=== PATIENT | male | born 1955 | race Caucasian/White ===

== ENCOUNTER 2017-08-06 09:00 | Inpatient (IN) | payer BC, OTHER ==
[2017-08-06] VITALS (32 sets, daily range): BP systolic 63–158; BP diastolic 43–102; PULSE 38–164; RESP 18–24; TEMP 91–99.1; O2SAT 97–100
[~2017-08-06] VITALS: Ht 190.5 cm; Wt 98.5 kg
[~2017-08-06 09:00] MED LIST: ATROPINE SULFATE 1 MG/10 ML SYRINGE IV ONE; DOPamine 800 MG/500 ML INJ 500 ML IV ONE; EPINEPHrine HCL (1:10,000) 1 MG/10 ML SYRINGE IV ONE; LISI-363 PO; LORA-474 PO; MAGNESIUM SULFATE 40 MEQ/10 ML VIAL IV ONE; PRAV20 PO
[2017-08-06] MEDS ORDERED: DOPamine 800 MG/500 ML INJ 500 ML IV PRN (09:15)
[2017-08-06] MEDS ORDERED: TERBUTALINE INJ 1 MG/ML AMP SQ PRN (09:15)
[2017-08-06] MEDS ORDERED: HEPARIN SODIUM - IV 10,000 UNITS/10 ML VIAL IV PUSH STA (09:19)
[2017-08-06] MEDS ORDERED: SODIUM CHLOR 0.9% 1000 ML INJ 1,000 ML IV ONE (09:19)
[2017-08-06] MEDS ORDERED: ASPIRIN 81 MG CHEW TAB PO STA (09:19)
[2017-08-06] MEDS ORDERED: NITROGLYCERIN 0.4 MG SL 25 TABS/BTL SL STA (09:19)
[2017-08-06] MEDS ORDERED: SODIUM CHLORIDE 0.9% FLUSH 10 ML FLUSH IVF PRN (09:30)
[2017-08-06] MEDS ORDERED: NITROGLYCERIN-D5W 50 MG/250 ML 250 ML IV PRN ×2 (09:30→10:45)
[2017-08-06] MEDS ORDERED: ASPIRIN 300 MG SUPP RECTAL ONE (09:30)
--- NOTE | 2017-08-06 09:41 | PD ---
HPI Chief Complaint: STEMI Alert Time Seen by Provider: 09:19 Travel History International Travel<30 days: No Contact w/Intl Traveler<30days: No Traveled to known affect area: No History of Present Illness HPI White male presents via private vehicle. present states they [place] [facility] when he fainted. On arrival pulseless. Past medical history for hypertension hyperlipidemia and anxiety. Compliant with lisinopril pravastatin and Lorazepam. No previous cardiac history. History of gastric bypass. Nondiabetic. Non-smoker. denies any family history of cardiac disease. PFSH Past Medical History Autoimmune Disease: No Blood Disorders: No Cancer: No Cardiovascular Problems: Yes High Cholesterol: Yes Diabetes: No Diminished Hearing: No Endocrine: No Genitourinary: No Hepatitis: No Hiatal Hernia: No Immune Disorder: No Inguinal Hernia: Yes (MULTIPLE SURGERIES) Musculoskeletal: Yes Neurologic: No Psychiatric: No Reproductive: No Respiratory: No Thyroid Disease: No Past Surgical History Abdominal Surgery: Yes (GASTRIC BYPASS/ INGUINAL HERNIA) Other Surgery: Yes Social History Alcohol Use: Yes (HALF 1.75 BOTTLE LIQUOR, TODAY RUM 3 X WEEK) Tobacco Use: No Substance Use: No Allergies-Medications (Allergen,Severity, Reaction): Coded Allergies: morphine (Unverified Adverse Reaction, Severe, hallucinates, 08/06/17) Reported Meds & Prescriptions Reported Meds & Active Scripts Active Active Prescriptions or Reported Medications Unobtainable Review of Systems ROS Limitations: Unresponsive General / Constitutional: No: Fever Eyes: No: Visual changes HENT: No: Headaches Cardiovascular: Positive: Chest Pain or Discomfort Respiratory: No: Shortness of Breath Gastrointestinal: No: Abdominal Pain Genitourinary: No: Dysuria Musculoskeletal: No: Pain Skin: No Rash Neurologic: No: Weakness Psychiatric: No: Depression Endocrine: No: Polydipsia Hematologic/Lymphatic: No: Easy Bruising Physical Exam Narrative GENERAL: Well-nourished, well-developed patient. SKIN: Focused skin assessment warm/dry. HEAD: Normocephalic. EYES: Pupils fixed and nonreactive NECK: Supple, trachea midline. No JVD or lymphadenopathy. CARDIOVASCULAR: Tachycardic irregular rate of 156 RESPIRATORY: Intubated positive breath sounds GASTROINTESTINAL: Abdomen soft, nondistended. MUSCULOSKELETAL: No cyanosis, or edema. BACK: Nontender without obvious deformity. No CVA tenderness. 2 peripheral lines, right femoral central line, Rizvi in place, OG tube in place Data Data Last Documented VS Vital Signs Date Time Temp Pulse Resp B/P (MAP) Pulse Ox O2 Delivery O2 Flow Rate FiO2 08/06/17 10:49 Ventilator 08/06/17 09:34 100 100 Orders Orders Dopamine 800 Mg/500 Ml Inj (Dopamine 800 (08/06/17 09:15) Terbutaline Inj (Brethine Inj) (08/06/17 09:15) Chest, Single Ap (08/06/17 ) Troponin I (08/06/17 09:19) Ckmb (Isoenzyme) Profile (08/06/17 09:19) Complete Blood Count With Diff (08/06/17:19) Basic Metabolic Panel (Bmp) (08/06/17 09:19) Magnesium (Mg) (08/06/17 09:19) Calcium (08/06/17 09:19) Prothrombin Time / Inr (Pt) (08/06/17:19) Act Partial Throm Time (Ptt) (08/06/17 09:19) B-Type Natriuretic Peptide (08/06/17 09:19) Electrocardiogram (08/06/17 09:19) Oxygen Administration (08/06/17 09:19) Iv Access Insert/Monitor (08/06/17 09:19) Oximetry (08/06/17 09:19) Sodium Chlor 0.9% 1000 Ml Inj (Ns 1000 M (08/06/17 09:19) Sodium Chloride 0.9% Flush (Ns Flush) (08/06/17 09:30) Aspirin Chew (Aspirin Chew) (08/06/17 09:19) Nitroglycerin Sl (Nitrostat Sl) (08/06/17 09:19) Nitroglycerin-D5w 50 Mg/250 Ml (Nitrogly (08/06/17 09:30) Heparin Inj (Heparin Inj) (08/06/17 09:19) Aspirin Supp (Aspirin Supp) (08/06/17 09:30) Ct Brain W/O Iv Contrast(Rout) (08/06/17 ) ^ Infusion (08/06/17 ) Norepinephrine-Dextrose Drip (Levophed-D (08/06/17 09:45) Lactic Acid Sepsis Protocol (08/06/17 09:41) Arterial Blood Gas (Abg) (08/06/17 ) Sodium Bicarbonate 8.4% Inj (Sodium Bica (08/06/17 10:15) D5-1/2 Ns + Kcl 20 Meq Inj (D5-1/2 Ns + (08/06/17 10:30) CKMB (08/06/17 09:30) CKMB% (08/06/17 09:30) Norepinephrine-Dextrose Drip (Levophed-D (08/06/17 10:45) Nitroglycerin-D5w 50 Mg/250 Ml (Nitrogly (08/06/17 10:45) Urinary Catheter Insert/Apply (08/06/17 11:05) Cindy-Gastric Tube Insert/Mon (08/06/17 11:05) Admit Order (Ed Use Only) (08/06/17 ) Director Recreation / Telemetry [id number] (08/06/17 11:07) Vital Signs (Adult) Q4H (08/06/17 11:07) Notify Dr: Other (08/06/17 11:07) Consult Cardiology (08/06/17 ) Labs Laboratory Tests Test 08/06/17 09:30 08/06/17 09:55 08/06/17 10:40 White Blood Count 8.3 TH/MM3 Red Blood Count 4.24 MIL/MM3 Hemoglobin 11.1 GM/DL Hematocrit 34.0 % Mean Corpuscular Volume 80.3 FL Mean Corpuscular Hemoglobin 26.1 PG Mean Corpuscular Hemoglobin Concent 32.5 % Red Cell Distribution Width 19.4 % Platelet Count 149 TH/MM3 Mean Platelet Volume 9.3 FL Neutrophils (%) (Auto) 60.8 % Lymphocytes (%) (Auto) 31.8 % Monocytes (%) (Auto) 4.8 % Eosinophils (%) (Auto) 1.5 % Basophils (%) (Auto) 1.1 % Neutrophils # (Auto) 5.1 TH/MM3 Lymphocytes # (Auto) 2.6 TH/MM3 Monocytes # (Auto) 0.4 TH/MM3 Eosinophils # (Auto) 0.1 TH/MM3 Basophils # (Auto) 0.1 TH/MM3 CBC Comment DIFF FINAL Differential Comment Prothrombin Time 10.7 SEC Prothromb Time International Ratio 1.1 RATIO Activated Partial Thromboplast Time 22.4 SEC Blood Urea Nitrogen 9 MG/DL Creatinine 0.96 MG/DL Random Glucose 137 MG/DL Calcium Level 7.7 MG/DL Magnesium Level 2.1 MG/DL Sodium Level 142 MEQ/L Potassium Level 3.2 MEQ/L Chloride Level 105 MEQ/L Carbon Dioxide Level 21.3 MEQ/L Anion Gap 16 MEQ/L Estimat Glomerular Filtration Rate 79 ML/MIN Total Creatine Kinase 114 U/L Creatine Kinase MB 1.0 NG/ML Troponin I 0.04 NG/ML B-Type Natriuretic Peptide 124 PG/ML Blood Gas Puncture Site LT FEMORAL Blood Gas Patient Temperature 98.6 Blood Gas HCO3 15 mmol/L Blood Gas Base Excess -10.6 mmol/L Blood Gas Oxygen Saturation 97 % Arterial Blood pH 7.26 Arterial Blood Partial Pressure CO2 35 mmHG Arterial Blood Partial Pressure O2 512 mmHG Arterial Blood Oxygen Content 14.0 Vol % Arterial Blood Carboxyhemoglobin 1.1 % Arterial Blood Methemoglobin 1.6 % Blood Gas Hemoglobin 9.3 G/DL Oxygen Delivery Device VENTILATOR Blood Gas Ventilator Setting PRVC/AC Blood Gas Inspired Oxygen 100 % Lactic Acid Level 8.6 mmol/L [facility] Medical Decision Making Medical Screen Exam Complete: Yes Emergency Medical Condition: Yes Differential Diagnosis cardiopulmonary arrest, RI, dissection, ICH, gi bleed Narrative Course On arrival pulseless and unresponsive, ACLS initiated, airway secured lines obtained, patient defibrillated 2, epi 3, atropine 1, magnesium 2 mg, heparin drip started with aspirin per rectum. Levophed initiated for hypotension. EKG atrial fibrillation with RVR rate of 156. Chest x-ray clear with well-placed ET tube. ABG reveals pH 7.2 PCO2 34 and PO2 of 512. Bicarb provided. OG tube placed. Blood pressure significantly improved, levophed titrated down. Cardizem drip initiated for rate control with new onset A. fib. Reevaluation, pupils are now reactive to light, patient does appear to be posturing his lower extremities only. Small amount of Ativan provided. Patient becoming more agitated, propofol drip started. Ambulance arrived patient transported to the [facility]. Physician Communication Physician Communication Spoke with Dr. Boateng who evaluated EKG, non-STEMI. Spoke to Dr Horta who is in agreement will admit, transfer to the [facility] after CT the head is obtained Diagnosis Primary Impression: Cardiopulmonary arrest with successful resuscitation Scripts Unable to Obtain Active Prescriptions or Reported Meds Shahram Miramontes MD Aug 06, 2017 09:41
--- NOTE | 2017-08-06 09:41 | RADRPT ---
EXAM DATE/TIME: 08/06/2017 09:22 [facility] COMPARISON: No previous studies available for comparison. INDICATIONS : cardiac alert, syncope MEDICAL HISTORY : None. SURGICAL HISTORY : None. ENCOUNTER: Initial ACUITY: 1 day PAIN SCORE: Non-responsive. LOCATION: Bilateral chest FINDINGS: An endotracheal tube has its tip 4 cm above the danny. The heart is normal. The pulmonary vasculatur e pattern is normal. The lungs are clear. CONCLUSION: Endotracheal tube in good position 4 cm above the danny. No focal infiltrate or pulmonary vascular c ongestion. Eduardo Black MD on August 06, 2017 at 9:37 Board Certified Radiologist. This report was verified electronically.
[2017-08-06] MEDS ORDERED: NOREPINEPHRINE-DEXTROSE DRIP 250 ML IV PRN ×2 (09:45→10:45)
[2017-08-06 09:50] LABS: AUTOMATED NEUTROPHIL # 5.1 TH/MM3 (1.8-7.7); BASOPHIL # 0.1 TH/MM3 (0-0.2); BASOPHIL % 1.1 % (0.0-2.0); EOSINOPHIL # 0.1 TH/MM3 (0-0.4); EOSINOPHIL % 1.5 % (0.0-4.0); HEMOGLOBIN 11.1 GM/DL (13.0-17.0); LYMPH % 31.8 % (9.0-44.0); LYMPHOCYTE # 2.6 TH/MM3 (1.0-4.8); MEAN CELL VOLUME 80.3 FL (80.0-100.0); MEAN CORPUSCULAR HEMOGLOBIN 26.1 PG (27.0-34.0); MEAN CORPUSCULAR HGB CONC 32.5 % (32.0-36.0); MEAN PLATELET VOLUME 9.3 FL (7.0-11.0); MONO % 4.8 % (0.0-8.0); MONOCYTE # 0.4 TH/MM3 (0-0.9); NEUT % 60.8 % (16.0-70.0); PLATELET COUNT 149 TH/MM3 (150-450); RED BLOOD COUNT 4.24 MIL/MM3 (4.50-5.90); RED CELL DISTRIBUTION WIDTH 19.4 % (11.6-17.2); WHITE BLOOD COUNT 8.3 TH/MM3 (4.0-11.0)
[2017-08-06 10:00] LABS: INTERNATIONAL NORMALIZED RATIO 1.1 RATIO; PROTHROMBIN TIME - PATIENT 10.7 SEC (9.8-11.6)
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
[2017-08-06 10:12] LABS: CHLORIDE 105 MEQ/L (98-107); SODIUM (NA) 142 MEQ/L (136-145)
[2017-08-06 10:15] LABS: CALCIUM 7.7 MG/DL (8.5-10.1)
[2017-08-06] MEDS ORDERED: SODIUM BICARBONATE 8.4% INJ 50 MEQ/50 ML SYR IV PUSH ONE (10:15)
[2017-08-06 10:16] LABS: BICARBONATE 21.3 MEQ/L (21.0-32.0); BLOOD UREA NITROGEN 9 MG/DL (7-18); GLUCOSE,RANDOM 137 MG/DL (74-106); MAGNESIUM 2.1 MG/DL (1.5-2.5)
[2017-08-06 10:19] LABS: CREATININE 0.96 MG/DL (0.60-1.30); GLOMERULAR FILTRATION RATE 79 ML/MIN (>89)
[2017-08-06 10:24] LABS: TROPONIN I 0.04 NG/ML (0.02-0.05)
[2017-08-06] MEDS ORDERED: D5-1/2 NS + KCL 20 MEQ INJ 1,000 ML IV SCH ×2 (10:30→14:15)
[2017-08-06] MEDS ORDERED: DILTIAZEM HCL 25 MG/5 ML VIAL IV ONE ×2 (11:30→12:00)
[2017-08-06 11:46] LABS: LACTIC ACID SEPSIS PROTOCOL 8.6 mmol/L (0.4-2.0)
[2017-08-06] MEDS ORDERED: LORazepam 2 MG/ML VIAL IM ONE (12:00)
[2017-08-06] MEDS ORDERED: DILTIAZEM INJ 125 MG in SODIUM CHLORIDE 0.9% INJ 100 ML IV PRN ×2 (12:15→14:15)
[2017-08-06] MEDS ORDERED: LISI-515 PO (13:37)
[2017-08-06] MEDS ORDERED: TRAM50TA PO (13:37)
[2017-08-06] MEDS ORDERED: TAMS0.4C4 PO (13:37)
[2017-08-06] MEDS ORDERED: ATOR10TA15 PO (13:37)
[2017-08-06] MEDS ORDERED: METH750T PO (13:37)
[2017-08-06] MEDS ORDERED: CISATRACURIUM BESYLATE 20 MG/10 ML VIAL IV ONE (14:15)
[2017-08-06] MEDS: PROPOFOL 1000 MG/100 ML IV PRN ×2 (14:30→16:21)
--- NOTE | 2017-08-06 14:42 | RADRPT ---
EXAM DATE/TIME: 08/06/2017 14:10 [facility] COMPARISON: CT BRAIN W/O CONTRAST, March 28, 2013, 11:10. INDICATIONS : Altered mental status. RADIATION DOSE: 50.87 CTDIvol (mGy) MEDICAL HISTORY : Carcinoma, prostate. Hypertension. SURGICAL HISTORY : Gastric bypass. ENCOUNTER: Initial ACUITY: 1 day PAIN SCALE: Non-responsive LOCATION: Bilateral head TECHNIQUE: Multiple contiguous axial images were obtained of the head. Using automated exposure control and adj ustment of the mA and/or kV according to patient size, radiation dose was kept as low as reasonably a chievable to obtain optimal diagnostic quality images. DICOM format image data is available electro nically for review and comparison. FINDINGS: CEREBRUM: The ventricles are normal for age. No evidence of midline shift, mass lesion, hemorrhage or acute in farction. No extra-axial fluid collections are seen. POSTERIOR FOSSA: The cerebellum and brainstem are intact. The 4th ventricle is midline. The cerebellopontine angle i s unremarkable. EXTRACRANIAL: The visualized portion of the orbits is intact. There is minimal left maxillary sinus disease. SKULL: The calvaria is intact. No evidence of skull fracture. CONCLUSION: No acute intracranial disease. Moisés Olvera MD on August 06, 2017 at 14:38 Board Certified Radiologist. This report was verified electronically.
--- NOTE | 2017-08-06 16:30 | HHI.HP ---
[facility] Service Critical Care Medicine Primary Care Physician Gallito Lilly MD Admission Diagnosis Cardiopulmonary arrest Diagnosis: Chief Complaint: altered mental status Travel History International Travel<30 Days: No Contact w/Intl Traveler <30 Da: No Traveled to Known Affected Are: No History of Present Illness This is a 62-year-old male who presented by private vehicle for acute altered mental status. Per ER reports, he was riding with his through [place] when he passed out. She immediately turned and drove to the [place] emergency department where in the ER he was found to be in PEA arrest. The states that was approximately 3-5 minutes of driving before she arrived to the ER. After ACLS, ROSC was obtained. A poor neurologic exam and was emergently transferred to [facility]. I evaluated the patient upon arrival to the CVICU. He had pupils that were 6 mm, sluggishly reactive, deviated to the left. He was extensor posturing in the upper extremities and flexor posturing in the lowers. He had a head CT that was negative for acute intracranial hemorrhage. There was some report from the emergency department that at least one rhythm during ACLS was ventricular fibrillation, suggesting a possible ischemic component to this cardiac arrest. I had a discussion with Dr. Boateng with cardiology and we both agree the patient would be a good hypothermic candidate. No additional information is available from the patient due to his clinical condition. ROS unobtainable. Review of Systems ROS Limitations: Clinical Condition, Intubated, Altered Mental Status, Unresponsive Past Family Social History Allergies: Coded Allergies: morphine (Unverified Adverse Reaction, Severe, hallucinates, 08/06/17) Past Medical History Unobtainable from the patient due to his clinical condition. Per chart review: Hypertension Hypercholesterolemia Past Surgical History Unobtainable from the patient due to his clinical condition. Per chart review: Gastric bypass Inguinal hernia repair Reported Medications Unobtainable from the patient due to the clinical condition. Per chart review: Methocarbamol 750 Mg Tab 750 Mg PO QID Tramadol (Tramadol HCl) 50 Mg Tab 50 Mg PO QID PRN Lisinopril 20 Mg Tab 20 Mg PO DAILY Tamsulosin (Tamsulosin HCl) 0.4 Mg Cap 0.4 Mg PO BID Atorvastatin (Atorvastatin Calcium) 10 Mg Tab 10 Mg PO HS Active Ordered Medications See MAR Family History Unobtainable from the patient due to his clinical condition. Per chart review: No family history of coronary artery disease Social History Unobtainable from the patient due to his clinical condition. Per chart review: Non-smoker. Physical Exam Vital Signs Vital Signs Date Time Temp Pulse Resp B/P (MAP) Pulse Ox O2 Delivery O2 Flow Rate FiO2 08/06/17 15:22 99.1 137 24 120/79 (93) 99 08/06/17 15:22 137 08/06/17 14:51 40 08/06/17 14:44 137 08/06/17 14:36 99.1 137 24 111/72 (85) 98 08/06/17 14:32 137 08/06/17 12:35 08/06/17 12:30 130 18 134/84 (101) 100 Ventilator 100 08/06/17 12:10 Ventilator 2.00 100 08/06/17 12:10 130 18 158/102 (120) 100 100 08/06/17 11:55 137 18 138/100 (113) 97 Ventilator 100 08/06/17 11:35 140 18 121/86 (98) 100 Ventilator 100 08/06/17 11:20 150 Ventilator 08/06/17 11:20 150 18 144/88 (106) 100 Ventilator 2.00 100 08/06/17 11:00 149 18 119/62 (81) 100 Ventilator 100 08/06/17 10:49 Ventilator 08/06/17 10:49 Ventilator 08/06/17 10:49 Ventilator 08/06/17 10:45 152 18 85/69 (74) 100 Ventilator 2.00 100 08/06/17 10:30 156 18 99/60 (73) 100 Ventilator 2.00 100 08/06/17 10:30 Ventilator 08/06/17 10:25 98/67 (77) 08/06/17 10:20 164 18 76/66 (69) 100 Ventilator 2.00 100 08/06/17 10:10 150 18 63/43 (50) 100 Ventilator 2.00 100 08/06/17 10:05 148 18 89/72 (78) 99 Ventilator 2.00 100 08/06/17 09:45 154 18 80/62 (68) 100 Ventilator 2.00 100 08/06/17 09:40 161 18 67/53 (58) 100 Ventilator 2.00 100 08/06/17 09:35 160 18 78/64 (69) 100 Ventilator 2.00 100 08/06/17 09:34 100 100 08/06/17 09:25 148 94/64 (74) 100 Ventilator 2.00 100 08/06/17 09:20 143 110/78 (89) 98 Ventilator 08/06/17 09:15 156 18 Physical Exam GENERAL: Middle-aged male, lying in bed, unresponsive, comatose HEENT: Normocephalic. Atraumatic. Pupils are 6 mm, deviated to the left, sluggishly reactive. Mucous membranes are moist NECK: Trachea is midline. There is no JVD. CHEST: Equal chest rise. PRVC. 40% FiO2. CARDIOVASCULAR: Tachycardic rate, regular rhythm. Sinus tachycardia by telemetry. ABDOMEN: Soft, nontender, nondistended. No guarding. MUSCULOSKELETAL: Pulses 2+. No peripheral edema. Extremities are cool and poorly perfused NEUROLOGICAL: GCS 4/5 (E1 V1 M 2/3) RASS -5. Extensor postures in the upper extremities, flexor postures in the lower extremities. Upgoing Babinski. Positive cough. Positive gag. Positive corneals. Inappropriate doll's eyes. Pupils as above. Laboratory Laboratory Tests Test 08/06/17 09:30 08/06/17 09:55 08/06/17 10:40 White Blood Count 8.3 Red Blood Count 4.24 Hemoglobin 11.1 Hematocrit 34.0 Mean Corpuscular Volume 80.3 Mean Corpuscular Hemoglobin 26.1 Mean Corpuscular Hemoglobin Concent 32.5 Red Cell Distribution Width 19.4 Platelet Count 149 Mean Platelet Volume 9.3 Neutrophils (%) (Auto) 60.8 Lymphocytes (%) (Auto) 31.8 Monocytes (%) (Auto) 4.8 Eosinophils (%) (Auto) 1.5 Basophils (%) (Auto) 1.1 Neutrophils # (Auto) 5.1 Lymphocytes # (Auto) 2.6 Monocytes # (Auto) 0.4 Eosinophils # (Auto) 0.1 Basophils # (Auto) 0.1 CBC Comment DIFF FINAL Differential Comment Prothrombin Time 10.7 Prothromb Time International Ratio 1.1 Activated Partial Thromboplast Time 22.4 Blood Urea Nitrogen 9 Creatinine 0.96 Random Glucose 137 Calcium Level 7.7 Magnesium Level 2.1 Sodium Level 142 Potassium Level 3.2 Chloride Level 105 Carbon Dioxide Level 21.3 Anion Gap 16 Estimat Glomerular Filtration Rate 79 Total Creatine Kinase 114 Creatine Kinase MB 1.0 Troponin I 0.04 B-Type Natriuretic Peptide 124 Blood Gas Puncture Site LT FEMORAL Blood Gas Patient Temperature 98.6 Blood Gas HCO3 15 Blood Gas Base Excess -10.6 Blood Gas Oxygen Saturation 97 Arterial Blood pH 7.26 Arterial Blood Partial Pressure CO2 35 Arterial Blood Partial Pressure O2 512 Arterial Blood Oxygen Content 14.0 Arterial Blood Carboxyhemoglobin 1.1 Arterial Blood Methemoglobin 1.6 Blood Gas Hemoglobin 9.3 Oxygen Delivery Device VENTILATOR Blood Gas Ventilator Setting PRVC/AC Blood Gas Inspired Oxygen 100 Lactic Acid Level 8.6 Result Diagram: 08/06/1792908/06/17929 Caprini VTE Risk Assessment Caprini VTE Risk Assessment: Mod/High Risk (score >= 2) Caprini Risk Assessment Model Point Value = 1 Point Value = 2 Point Value = 3 Point Value = 5 Age 41-60 Minor surgery BMI > 25 kg/m2 Swollen legs Varicose veins or History of unexplained or recurrent spontaneous Oral contraceptives or hormone replacement Sepsis (< 1 month) Serious lung disease, including pneumonia (< 1 month) Abnormal pulmonary function Acute myocardial infarction Congestive heart failure (< 1 month) History of inflammatory bowel disease Medical patient at bed rest Age 61-74 Arthroscopic surgery Major open surgery (> 45 min) Laparoscopic surgery (> 45 min) Malignancy Confined to bed (> 72 hours) Immobilizing plaster cast Central venous access Age >= 75 History of VTE Family history of VTE Factor V Leiden Prothrombin [id number] Lupus anticoagulant Anticardiolipin antibodies Elevated serum homocysteine Heparin-induced thrombocytopenia Other congenital or acquired thrombophilia Stroke (< 1 month) Elective arthroplasty Hip, pelvis, or leg fracture Acute spinal cord injury (< 1 month) Prophylaxis Regimen Total Risk Factor Score Risk Level Prophylaxis Regimen 0-1 Low Early ambulation 2 Moderate Order ONE of the following: *Sequential Compression Device (SCD) *Heparin 5000 units SQ BID 3-4 Higher Order ONE of the following medications: *Heparin 5000 units SQ TID *Enoxaparin/Lovenox 40 mg SQ daily (WT < 150 kg, CrCl > 30 mL/min) *Enoxaparin/Lovenox 30 mg SQ daily (WT < 150 kg, CrCl > 10-29 mL/min) *Enoxaparin/Lovenox 30 mg SQ BID (WT < 150 kg, CrCl > 30 mL/min) AND/OR *Sequential Compression Device (SCD) 5 or more Highest Order ONE of the following medications: *Heparin 5000 units SQ TID (Preferred with Epidurals) *Enoxaparin/Lovenox 40 mg SQ daily (WT < 150 kg, CrCl > 30 mL/min) *Enoxaparin/Lovenox 30 mg SQ daily (WT < 150 kg, CrCl > 10-29 mL/min) *Enoxaparin/Lovenox 30 mg SQ BID (WT < 150 kg, CrCl > 30 mL/min) AND *Sequential Compression Device (SCD) Assessment and Plan Assessment and Plan Assessment: 62-year-old male with out of hospital cardiac arrest and at least one rhythm strip suggesting ventricular fibrillation or a coronary ischemia component to his arrest. Given age and lack of medical comorbidities he would be a good candidate for therapeutic hypothermia. Will proceed with protocol. Remains very critically ill. Appreciate cardiology input. Plan by systems: Neurologic: Hypoxic ischemic encephalopathy Initiate therapeutic hypothermia Frequent neuro checks Nuedexta prevent shivering Propofol for sedation Given deviated eyes, will load with keppra eeg Respiratory: Acute hypoxic hypercarbic respiratory failure Vent bundle Head of bed 30 Nebs Wean FiO2 for goal SPO2 greater than 92% No weaning of ventilator until neurologic exam improves Cardiovascular: Status post out of hospital cardiac arrest Ventricular fibrillation Serial troponins Cardiology consult: Dr. Boateng If troponins are elevated, will start heparin infusion for acute coronary syndrome Levophed for goal map greater than 65 Renal: Acute kidney injury Place Rizvi catheter -- Strict I/Os FEN/GI: N.p.o. Maintenance IV fluids ICU electrolyte protocol Heme/ID: Daily CBC No infectious etiology suspected this time Endocrine: Hyperglycemia of critical illness -- SSI, medium scale, every 6 Prophylaxis: GI Prophylaxis Pepcid IV DVT Prophylaxis -- SCDs We will either pursue subcu heparin or therapeutic heparin drip for ACS depending on serial troponins Lines: Right femoral triple lumen catheter 08/06 Left femoral code cool catheter 08/06 Left femoral arterial line 08/06 Rizvi Dispo: Admit to the CVICU. Remains critically ill This patient remains critically ill with one or more organ systems which are or may become a threat to life. I have spent in excess of 76 minutes discontinuously in the care and management of this patient. This time is exclusive of procedures, and includes, but is not limited to, evaluation of the patient, review of the medical record, discussions with family, consultants, nursing staff, or respiratory therapy, and documentation in the medical record. Luis Juarez MD Aug 06, 2017 16:30
--- NOTE | 2017-08-06 16:39 | PD.PROCEDR ---
Procedure Note Procedure Procedure: Arterial Line Placement Left femoral 18-gauge 16 cm arterial line Diagnosis: Cardia genic shock Indications: Need for beat to beat hemodynamic monitoring Consent: Emergent Description of the Procedure: The left groin was prepped and draped sterilely. 1% lidocaine was used for local anesthesia. The pulse was located and a needle was advanced into the artery. A 18 gauge, 16 cm catheter was advanced into the artery using a modified Seldinger technique. The catheter was sutured to the skin and a sterile dressing was applied. The catheter was connected to a pressure transducer and an arterial waveform was noted. There were no immediate complications noted. There was minimal EBL. I personally performed the procedure. Luis Juarez MD Aug 06, 2017 16:39
--- NOTE | 2017-08-06 16:41 | PD.PROCEDR ---
Procedure Note Procedure Central Line Procedure Note Left femoral cooling catheter Diagnosis: Out of hospital cardiac arrest Indications: Postresuscitation induced hypothermia Consent: Emergent Anesthesia: Propofol IV Description of the Procedure: The patient was placed in the supine position. The area was prepped and draped sterilely. A 19g needle was inserted under negative pressure aspiration and dark venous blood was obtained. A guidewire was inserted easily without resistance. A small incision was made using a #11 blade. Using a modified Seldinger technique, the dilator and cooling catheter were advanced over the guidewire without resistance. All ports were aspirated and flushed, and had brisk blood return. The line was secured at the skin using 2-0 silk interrupted sutures. a Biopatch and Transparent sterile dressing were applied. There were no immediate complications noted. There was minimal EBL. The patient tolerated the procedure well. Ultrasound guidance was not used for this procedure I personally performed the procedure. Note: A StatLock device was not used because it was incompatible with the hub of the cooling catheter. Luis Juarez MD Aug 06, 2017 16:41
[2017-08-06] MEDS ORDERED: CHLORHEXIDINE GLUCONATE 2 % 1 PACK (2 CLOTHS) TOP PRN (16:45)
[2017-08-06] MEDS ORDERED: POTASSIUM PHOSPHATE MONOBASIC 500 MG TAB PO PRN (16:45)
[2017-08-06] MEDS ORDERED: MAGNESIUM OXIDE 400 MG TAB PO PRN (16:45)
[2017-08-06] MEDS ORDERED: POTASSIUM CHLOR 20 MEQ PREMIX 100 ML IV PRN (16:45)
[2017-08-06] MEDS ORDERED: POTASSIUM CHLOR 40 MEQ PREMIX 100 ML IV PRN ×2 (16:45)
[2017-08-06] MEDS ORDERED: POTASSIUM CHLORIDE 25 MEQ EFFERVESCENT TAB PO PRN (16:45)
[2017-08-06] MEDS ORDERED: MISCELLANEOUS NURSING INFORMATION XX SCH (16:45)
[2017-08-06] MEDS ORDERED: POTASSIUM PHOSPHATE INJ 30 MMOL in SODIUM CHLOR 0.9% 250 ML INJ 250 ML IV PRN (16:45)
[2017-08-06] MEDS ORDERED: RESP: ALBUTEROL 2.5 MG/IPRATROPIUM 0.5 MG NEB (PRN) INH (16:45)
[2017-08-06] MEDS ORDERED: MAGNESIUM HYDROXIDE SUSP 30 ML CUP PO PRN (16:45)
[2017-08-06] MEDS ORDERED: SODIUM CHLORIDE 0.9% FLUSH 10 ML FLUSH IV FLUSH PRN (16:45)
[2017-08-06] MEDS ORDERED: LORazepam 2 MG/ML VIAL IV PUSH PRN (16:45)
[2017-08-06] MEDS ORDERED: ONDANSETRON HCL 4 MG/2 ML VIAL IV PUSH PRN (16:45)
[2017-08-06] MEDS ORDERED: MAGNESIUM SULFATE INJ 4 GM in SODIUM CHLORIDE 0.9% INJ 92 ML IV PRN (16:45)
[2017-08-06] MEDS ORDERED: POTASSIUM PHOSPHATE MONOBASIC 500 MG TAB PO/TUBE PRN (16:45)
[2017-08-06] MEDS ORDERED: DEXTROSE 50% IN WATER 50 ML VIAL(D50) IV PUSH PRN (16:45)
[2017-08-06] MEDS ORDERED: MAGNESIUM SULFATE INJ 2 GM in SODIUM CHLORIDE 0.9% INJ 96 ML IV PRN (16:45)
[2017-08-06] MEDS ORDERED: SODIUM PHOSPHATE INJ 30 MMOL in SODIUM CHLOR 0.9% 250 ML INJ 240 ML IV PRN (16:45)
[2017-08-06] MEDS ORDERED: CALCIUM CHLORIDE INJ 1 GM in SODIUM CHLORIDE 0.9% INJ 100 ML IV ONE (17:00)
[2017-08-06] MEDS: SODIUM CHLOR 0.9% 1000 ML INJ 1,000 ML IV SCH (17:00)
[2017-08-06] MEDS: fentaNYL DRIP 250 ML IV PRN (17:07)
[2017-08-06] MEDS: CISATRACURIUM INJ 100 MG in SODIUM CHLOR 0.9% 250 ML INJ 240 ML IV PRN ×2 (17:35→22:17)
[2017-08-06] MEDS: INSULIN NovoLIN REGULAR SUPPLEMENTAL SCALE SQ SCH ×2 (17:55→22:51)
[2017-08-06] MEDS: MEPERIDINE HCL 25 MG/ML VIAL IV PUSH PRN (17:55)
[2017-08-06] MEDS: hydrALAZINE HCL 20 MG/ML VIAL IV PUSH PRN (18:01)
--- NOTE | 2017-08-06 18:16 | MB ---
cc: Aleks Boateng DO DATE: 08/06/2017 REASON FOR CONSULTATION: Cardiac arrest. HISTORY OF PRESENT ILLNESS: Elizabeth Iglesias is a 62-year-old male who presented to [facility] emergency room after a syncopal episode via a private vehicle in cardiopulmonary arrest. History is taken from discussion with the Emergency Room physician as well as the patient's . states that Elizabeth had said that he had not been feeling well for the past few days. No specific symptoms were noted, such as chest pain, shortness of breath, fevers, chills, nausea or vomiting. Last night, they went out to dinner and had fried fish for which the patient ate without having problems, but still said he did not feel well. This morning, they were going to a [employer] and since he was not feeling well asked his to drive. They were talking in the car and then she looked over and he was out and not breathing. She did not know what to do so she turned around the car and drove him straight to the emergency room. On arrival to the emergency room, apparently the patient was in PEA and CPR was started. During CPR, it appeared that he may have been in ventricular fibrillation and so he was defibrillated once. He received 3 rounds of epinephrine, 1 round of atropine and 2 mg of magnesium. He had return of spontaneous circulation and was placed on a Levophed drip. EKG at that time showed atrial fibrillation with a rapid ventricular response with what looks like a possible incomplete left bundle branch block. Possible STEMI alert was called and I discussed over the phone with Dr. Byrnes that I did not feel that this represented an ST elevation myocardial infarction, but would have him transferred to [facility] for further evaluation. In seeing him, he is currently tachycardic but hemodynamically stable. PAST MEDICAL HISTORY: 1. Hypertension. 2. Depression, for which the patient apparently has voiced suicidal thoughts in the past and presented to the emergency room. 3. History of alcohol abuse for which it appears the patient used to drink a half of a bottle of liquor 3 times a week. 4. Benign prostatic hypertrophy. 5. Prostate cancer for which the patient just finished radiation therapy. PAST SURGICAL HISTORY: 1. Gastric bypass surgery a number of years ago. 2. Multiple surgeries for small-bowel obstruction. 3. Multiple surgeries for hernia repair. ALLERGIES: MORPHINE. MEDICATIONS: 1. Flomax 0.4 mg b.i.d. 2. Methocarbamol 750 mg q.i.d. 3. Lipitor 10 mg every night. 4. Lisinopril 20 mg daily. 5. Tramadol 50 mg q.i.d. as needed for pain. FAMILY HISTORY: As far as noted, nothing cardiac. SOCIAL HISTORY: The patient has a longtime history of alcohol abuse. He does not appear to have tobacco or drug abuse issues. REVIEW OF SYSTEMS: Unable to obtain at this time due to the patient's current state. Per the , he just has not felt well lately, but no specific complaints were made to her. PHYSICAL EXAMINATION: VITAL SIGNS: Temperature 99.1, heart rate 130, blood pressure 111/72, respirations 24, pulse oximetry 98% on the ventilator. GENERAL: The patient is currently intubated and sedated. HEENT: Pupils are equal. They appear to gaze up and to the right. Mucous membranes moist. NECK: Supple. No JVD at 45 degrees. No carotid bruits heard bilaterally. Carotid upstroke is brisk in nature. HEART: Tachycardic but appears to be irregular in nature. Positive for and second heart sounds. LUNGS: Decreased breath sounds bilaterally but no overt wheezes, rales or rhonchi. ABDOMEN: Soft, nontender, and nondistended. No organomegaly noted. EXTREMITIES: Show no clubbing, cyanosis or edema. Femoral and distal pulses are intact bilaterally. NEUROLOGIC: The patient is currently intubated and sedated, but apparently had some concern for decorticate posturing. SKIN: Warm, dry and intact. OSTEOPATHIC: No kyphoscoliosis or lordosis. LABORATORY WORK: Hemoglobin 11.1, hematocrit 34.0, platelets 149. Potassium 3.2, BUN 9, creatinine 0.96. Lactic acid 8.6. Troponin 0.04. BNP 124. Electrocardiogram (08/06/2017 at 0915) atrial fibrillation with rapid ventricular response, possible incomplete left bundle branch block, nonspecific ST-T wave changes. IMPRESSION: 1. Cardiopulmonary arrest of unknown cause, initially presenting with pulseless electrical activity and possibly deteriorating to ventricular fibrillation requiring defibrillation. 2. Vent dependent respiratory failure. 3. Respiratory failure needing mechanical ventilation. 4. Out of hospital cardiac arrest. 5. History of hypertension. 6. History of suicidal ideation. 7. History of prostate cancer, status post radiation. 8. Lactic acidosis. RECOMMENDATIONS: 1. Mr. Iglesias presented after a cardiac arrest and had return of spontaneous circulation. Apparently, he was in PEA arrest on arrival and then deteriorated into ventricular fibrillation requiring to be defibrillated. 2. I was called for a possible STEMI alert, but on review of EKG does not show ST elevations and due to my overall concern for his neurological capacity, would not take him to the lab at this time. We will continue with supportive care. 3. We will check a 2D echo to look at his overall left ventricular function, cardiac structure and possible valvulopathies. 4. He will have a CT of the head and if negative, consideration will be made for hypothermia protocol. This was discussed with Dr. Juarez from the critical care team. 5. My overall concern is that his drove him to the emergency room and during that which he believes to be 5-7 minute period, he was not getting oxygen and so there is a concern here for hypoxic brain injury. This goes along with him showing some posturing. 6. Further recommendations will be made based on the hospital course. 7. Greater than 45 minutes of critical care time was spent evaluating the patient, discussing with the patient's , and discussing with other specialties. Thank you for allowing me to see Elizabeth Iglesias. If there are any questions, please do not hesitate to call. Aleks Boateng, DO LUCYP/FELISA , 02:59 PM , 06:15 PM
[2017-08-06 18:35] LABS: MAGNESIUM 1.5 MG/DL (1.5-2.5); PHOSPHORUS 2.6 MG/DL (2.5-4.9)
[2017-08-06 18:43] LABS: TROPONIN I 28.9 NG/ML (0.02-0.05)
[2017-08-06 19:27] LABS: AMORPHOUS SEDIMENT, URINE MANY; BACTERIA, URINE RARE /hpf; BILIRUBIN, URINE NEG (NEG); BLOOD, URINE MOD (NEG); GLUCOSE,URINE NEG (NEG); KETONE, URINE NEG (NEG); NITRITE,URINE NEG (NEG); PH, URINE 5.5 (5.0-8.5); URINE COLOR YELLOW (YELLW/STRAW); URINE LEUKOCYTE ESTERASE LARGE (NEG)
[2017-08-06] MEDS: PROPOFOL 1000 MG/100 ML INJ 100 ML IV PRN ×2 (19:30→23:25)
[2017-08-06] MEDS: RESP: ALBUTEROL 2.5 MG/IPRATROPIUM 0.5 MG NEB (SCH) INH (19:44)
[2017-08-06] MEDS: FAMOTIDINE 20 MG/2 ML VIAL IV PUSH SCH (20:54)
[2017-08-06] MEDS: CHLORHEXIDINE 0.12% (ORAL KIT) 15 ML CUP MT SCH (20:54)
[2017-08-06] MEDS: SODIUM CHLORIDE 0.9% FLUSH 10 ML FLUSH IV FLUSH SCH (20:55)
[2017-08-06] MEDS: DOCUSATE SODIUM 50 MG/SENNA 8.6 MG TAB PO SCH (20:55)
--- NOTE | 2017-08-06 21:29 | EKG ---
Date Performed: 08/06/2017 Time Performed: 09:15:33 PTAGE: 62 years EKG: ATRIAL FIBRILLATION WITH RAPID VENTRICULAR RESPONSE WITH ABERRANT CONDUCTION OR VENTRICULAR PREMATURE COMPLEXES NONSPECIFIC ST & T-WAVE ABNORMALITY ABNORMAL RHYTHM ECG Compared to PREVIOUS TRACING , the patient is now in atrial fibrillation. PREVIOUS TRACIN 4 07.31.04 DOCTOR: Shawn Edwards Interpretating Date/Time 08/06/2017 21:28:06
[2017-08-06] MEDS ORDERED: HEPARIN 25,000 UNITS-D5W 250 ML - PREMIX IV PRN (22:00)
[2017-08-06] MEDS: ARTIFICIAL TEARS OPTH OINT 3.5 APPLIC/3.5 GM TUBO EACH EYE PRN (22:51)
[2017-08-07] VITALS (19 sets, daily range): BP systolic 97–154; BP diastolic 59–88; PULSE 35–55; RESP 15–24; TEMP 91–94; O2SAT 99
[2017-08-07] MEDS: POTASSIUM CHLOR 20 MEQ PREMIX 100 ML IV PRN (00:22)
[2017-08-07] MEDS: CISATRACURIUM INJ 100 MG in SODIUM CHLOR 0.9% 250 ML INJ 240 ML IV PRN ×5 (02:30→20:57)
[2017-08-07 02:54] LABS: BICARBONATE 22.6 MEQ/L (21.0-32.0); CALCIUM 8.5 MG/DL (8.5-10.1); CREATININE 0.63 MG/DL (0.60-1.30); MAGNESIUM 1.6 MG/DL (1.5-2.5); PHOSPHORUS 2.6 MG/DL (2.5-4.9)
[2017-08-07] MEDS: RESP: ALBUTEROL 2.5 MG/IPRATROPIUM 0.5 MG NEB (SCH) INH ×4 (02:57→20:30)
[2017-08-07] MEDS: PROPOFOL 1000 MG/100 ML IV PRN ×5 (03:18→22:40)
[2017-08-07] MEDS: CHLORHEXIDINE GLUCONATE 2 % 1 PACK (2 CLOTHS) TOP SCH (04:00)
[2017-08-07] MEDS: ARTIFICIAL TEARS OPTH OINT 3.5 APPLIC/3.5 GM TUBO EACH EYE PRN ×3 (04:51→23:51)
[2017-08-07 05:03] LABS: HEMOGLOBIN 10.3 GM/DL (13.0-17.0); MEAN CORPUSCULAR HEMOGLOBIN 25.6 PG (27.0-34.0); MEAN PLATELET VOLUME 9.7 FL (7.0-11.0); PLATELET COUNT 124 TH/MM3 (150-450); RED CELL DISTRIBUTION WIDTH 19.7 % (11.6-17.2); WHITE BLOOD COUNT 7.4 TH/MM3 (4.0-11.0)
[2017-08-07 05:26] LABS: BICARBONATE 22.1 MEQ/L (21.0-32.0); CALCIUM 8.2 MG/DL (8.5-10.1); CREATININE 0.69 MG/DL (0.60-1.30)
[2017-08-07 05:32] LABS: TROPONIN I 20.6 NG/ML (0.02-0.05)
[2017-08-07] MEDS: INSULIN NovoLIN REGULAR SUPPLEMENTAL SCALE SQ SCH ×4 (06:00→17:47)
[2017-08-07] MEDS: SODIUM CHLOR 0.9% 1000 ML INJ 1,000 ML IV SCH ×2 (06:07→17:05)
[2017-08-07] MEDS ORDERED: HEPARIN SODIUM - IV 10,000 UNITS/10 ML VIAL IV PUSH PRN ×2 (06:30)
[2017-08-07] MEDS: NOREPINEPHRINE-DEXTROSE DRIP 250 ML IV PRN ×2 (07:00→14:17)
[2017-08-07] MEDS: CHLORHEXIDINE 0.12% (ORAL KIT) 15 ML CUP MT SCH ×2 (07:47→20:00)
[2017-08-07] MEDS: fentaNYL DRIP 250 ML IV PRN ×2 (07:56→22:39)
[2017-08-07] MEDS: DOCUSATE SODIUM 50 MG/SENNA 8.6 MG TAB PO SCH ×2 (09:00→20:01)
[2017-08-07] MEDS: FAMOTIDINE 20 MG/2 ML VIAL IV PUSH SCH ×2 (09:00→20:02)
[2017-08-07] MEDS: SODIUM CHLORIDE 0.9% FLUSH 10 ML FLUSH IV FLUSH SCH ×2 (09:00→20:01)
--- NOTE | 2017-08-07 11:02 | PD.CARD.PN ---
Subjective Subjective Remarks No events overnight Reached goal temp of hypothermia protocol Objective Medications Current Medications Medications (Trade) Dose Ordered Sig/Rogerio Route Start Time Stop Time Status Last Admin (Brethine Inj) 1 mg UNSCH PRN SQ 08/06/17 09:15 (NS Flush) 2 ml UNSCH PRN IVF 08/06/17 09:30 08/07/17 08:59 Nitroglycerin/ Dextrose 250 ml @ 3 mls/hr TITRATE PRN IV 08/06/17 10:45 Propofol 100 ml @ 2.7 mls/hr TITRATE PRN IV 08/06/17 14:15 08/07/17 10:49 Norepinephrine Bitartrate 250 ml @ 7.5 mls/hr TITRATE PRN IV 08/06/17 14:15 08/07/17 07:00 (Trandate Inj) 20 mg Q15M PRN IV PUSH 08/06/17 16:45 (Apresoline Inj) 10 mg Q30M PRN IV PUSH 08/06/17 16:45 08/06/17 18:01 Potassium Chloride 100 ml @ 50 mls/hr Q2H PRN IV 08/06/17 16:45 Potassium Chloride 100 ml @ 50 mls/hr Q2H PRN IV 08/06/17 16:45 (K-Lyte Cl Eff) 50 meq UNSCH PRN PO 08/06/17 16:45 Potassium Chloride 100 ml @ 25 mls/hr UNSCH PRN IV 08/06/17 16:45 08/07/17 00:24 Potassium Chloride 100 ml @ 50 mls/hr Q2H PRN IV 08/06/17 16:45 Magnesium Sulfate 4 gm/Sodium Chloride 100 ml @ 50 mls/hr UNSCH PRN IV 08/06/17 16:45 (Mag-Ox) 800 mg UNSCH PRN PO 08/06/17 16:45 Magnesium Sulfate 2 gm/Sodium Chloride 100 ml @ 50 mls/hr UNSCH PRN IV 08/06/17 16:45 08/07/17 06:06 (K-Phos) 2,000 mg Q4H PRN PO 08/06/17 16:45 Sodium Phosphate 30 mmol/Sodium Chloride 250 ml @ 42 mls/hr UNSCH PRN IV 08/06/17 16:45 (K-Phos) 2,000 mg UNSCH PRN PO/TUBE 08/06/17 16:45 Potassium Phosphate 30 mmol/ Sodium Chloride 260 ml @ 42 mls/hr UNSCH PRN IV 08/06/17 16:45 (Peridex 0.12% Liq) 15 ml BID@08,20 MT 08/06/17 20:00 08/07/17 07:47 (D50w (Vial) Inj) 25 ml UNSCH PRN IV PUSH 08/06/17 16:45 (NovoLIN R SUPPLEMENTAL SCALE) 1 Q6HR SQ 08/06/17 18:00 08/06/17 22:51 (Duoneb Neb) 1 ampule Q6HR NEB INH 08/06/17 22:00 08/07/17 08:31 (Duoneb Neb) 1 ampule Q2HR NEB PRN INH 08/06/17 16:45 Sodium Chloride 1,000 ml @ 84 mls/hr [id number] IV 08/06/17 16:31 08/07/17 06:07 (Pepcid Inj) 20 mg Q12HR IV PUSH 08/06/17 21:00 08/07/17 09:00 (Zofran Inj) 4 mg Q6H PRN IV PUSH 08/06/17 16:45 Miscellaneous Information 1 [id number] XX 08/06/17 16:45 (Chlorhexidine 2% Cloth) 3 pack Taper DAILY@04 TOP 08/07/17 04:00 08/03/18 03:59 (Chlorhexidine 2% Cloth) 3 pack UNSCH PRN TOP 08/06/17 16:45 (Rhianna-Colace) 1 tab BID PO 08/06/17 21:00 08/07/17 09:00 (Milk Of Magnesia Liq) 30 ml Q12H PRN PO 08/06/17 16:45 (Ativan Inj) 1 mg Q1H PRN IV PUSH 08/06/17 16:45 (Demerol Inj) 25 mg Q2H PRN IV PUSH 08/06/17 16:45 08/06/17 17:55 Cisatracurium Besylate 100 mg/ Sodium Chloride 250 ml @ 44.55 mls/ hr TITRATE PRN IV 08/06/17 17:15 08/07/17 07:19 (Lacrilube Opht Oint) 1 applic Q4H PRN EACH EYE 08/06/17 16:45 08/07/17 04:51 (NS Flush) 2 ml BID IV FLUSH 08/06/17 21:00 08/07/17 09:00 (NS Flush) 2 ml UNSCH PRN IV FLUSH 08/06/17 16:45 Miscellaneous Information 0 ml @ 0 mls/hr UNSCH IV 08/06/17 16:45 Fentanyl Citrate 250 ml @ 5 mls/hr TITRATE PRN IV 08/06/17 17:00 08/07/17 07:56 Heparin Sodium/ Dextrose 250 ml @ 10 mls/hr TITRATE PRN IV 08/07/17 06:30 (Heparin Inj) 5,000 units UNSCH PRN IV PUSH 08/07/17 06:30 (Heparin Inj) 2,500 units UNSCH PRN IV PUSH 08/07/17 06:30 Vital Signs / I&O Vital Signs Date Time Temp Pulse Resp B/P (MAP) Pulse Ox O2 Delivery O2 Flow Rate FiO2 08/07/17 08:55 35 08/07/17 08:31 99 35 08/07/17 07:38 91.0 36 15 97/59 (72) 99 08/07/17 07:37 100 Mechanical Ventilator 35 08/07/17 07:34 35 08/07/17 04:51 99 35 08/07/17 04:37 91.0 08/07/17 04:28 99 35 08/07/17 04:00 50 08/07/17 04:00 39 08/07/17 03:04 100 Mechanical Ventilator 35 08/07/17 03:00 91.0 36 24 111/67 (82) 99 08/07/17 00:00 38 08/07/17 00:00 50 08/06/17 23:30 100 Mechanical Ventilator 50 08/06/17 23:04 99 35 08/06/17 23:00 91.0 42 24 95/65 (75) 100 107/65 (79) 08/06/17 22:33 91.0 08/06/17 20:00 38 08/06/17 20:00 50 08/06/17 20:00 91.0 56 24 136/81 (99) 100 145/79 (101) 08/06/17 19:45 100 50 08/06/17 18:17 66 08/06/17 17:52 99 50 08/06/17 17:15 78 08/06/17 16:22 40 08/06/17 16:21 89 08/06/17 15:22 99.1 137 24 120/79 (93) 99 08/06/17 15:22 137 08/06/17 14:51 40 08/06/17 14:44 137 08/06/17 14:36 99.1 137 24 111/72 (85) 98 08/06/17 14:32 137 08/06/17 13:15 99 50 08/06/17 12:35 08/06/17 12:30 130 18 134/84 (101) 100 Ventilator 100 08/06/17 12:10 Ventilator 2.00 100 08/06/17 12:10 130 18 158/102 (120) 100 100 08/06/17 11:55 137 18 138/100 (113) 97 Ventilator 100 08/06/17 11:35 140 18 121/86 (98) 100 Ventilator 100 08/06/17 11:20 150 Ventilator 08/06/17 11:20 150 18 144/88 (106) 100 Ventilator 2.00 100 08/06/17 11:00 149 18 119/62 (81) 100 Ventilator 100 I/O 08/06/17 08/06/17 08/06/17 08/07/17 08/07/17 08/07/17 07:00 15:00 23:00 07:00 15:00 23:00 Intake Total 1025 ml 1550 ml 700 ml Output Total 690 ml 1913 ml Balance 335 ml -363 ml 700 ml Intake Oral 0 ml 0 ml IV Total 1025 ml 1550 ml 700 ml Output Urine Total 685 ml 1863 ml Gastric Drainage Total 5 ml 50 ml # Bowel Movements 0 0 Physical Exam GENERAL: Intubated, sedated SKIN: Cool HEAD: Atraumatic. Normocephalic. EYES: Pupils equal and round. No scleral icterus. No injection or drainage. ENT: No nasal bleeding or discharge. Mucous membranes pink and moist. NECK: Trachea midline. No JVD. CARDIOVASCULAR: Bradycardic RESPIRATORY: No accessory muscle use. Clear to auscultation. Breath sounds equal bilaterally. GASTROINTESTINAL: Abdomen soft, non-tender, nondistended. Hepatic and splenic margins not palpable. MUSCULOSKELETAL: Extremities without clubbing, cyanosis, or edema. No obvious deformities. NEUROLOGICAL: Intubated, sedated Laboratory Laboratory Tests Test 08/06/17 16:00 08/06/17 17:00 08/06/17 22:00 08/07/17 04:00 Lactic Acid Level 1.9 mmol/L Urine Color YELLOW Urine Turbidity CLOUDY Urine pH 5.5 Urine Specific [place] 1.019 Urine Protein TRACE mg/dL Urine Glucose (UA) NEG mg/dL Urine Ketones NEG mg/dL Urine Occult Blood MOD Urine Nitrite NEG Urine Bilirubin NEG Urine Urobilinogen 2.0 MG/DL Urine Leukocyte Esterase LARGE Urine RBC 8 /hpf Urine WBC 6 /hpf Urine Amorphous Sediment MANY Urine Bacteria RARE /hpf Nasal Screen MRSA (PCR) MRSA NOT DETECTED Phosphorus Level 2.6 MG/DL 2.6 MG/DL Magnesium Level 1.5 MG/DL 1.6 MG/DL Troponin I 28.90 NG/ML 24.90 NG/ML 20.60 NG/ML Urine Opiates Screen NEG Urine Barbiturates Screen NEG Urine Amphetamines Screen NEG Urine Benzodiazepines Screen NEG Urine Cocaine Screen NEG Urine Cannabinoids Screen NEG Blood Urea Nitrogen 8 MG/DL 10 MG/DL Creatinine 0.63 MG/DL 0.69 MG/DL Random Glucose 167 MG/DL 162 MG/DL Calcium Level 8.5 MG/DL 8.2 MG/DL Sodium Level 142 MEQ/L 141 MEQ/L Potassium Level 3.4 MEQ/L 3.6 MEQ/L Chloride Level 108 MEQ/L 108 MEQ/L Carbon Dioxide Level 22.6 MEQ/L 22.1 MEQ/L Anion Gap 11 MEQ/L 11 MEQ/L Estimat Glomerular Filtration Rate 128 ML/MIN 115 ML/MIN White Blood Count 7.4 TH/MM3 Red Blood Count 4.00 MIL/MM3 Hemoglobin 10.3 GM/DL Hematocrit 32.0 % Mean Corpuscular Volume 80.0 FL Mean Corpuscular Hemoglobin 25.6 PG Mean Corpuscular Hemoglobin Concent 32.0 % Red Cell Distribution Width 19.7 % Platelet Count 124 TH/MM3 Mean Platelet Volume 9.7 FL Activated Partial Thromboplast Time 32.9 SEC Assessment and Plan Problem List: (1) Cardiopulmonary arrest with successful resuscitation ICD Codes: I46.9 - Cardiac arrest, cause unspecified Status: Acute (2) NSTEMI (non-ST elevated myocardial infarction) ICD Codes: I21.4 - Non-ST elevation (NSTEMI) myocardial infarction (3) On mechanically assisted ventilation ICD Codes: Z99.11 - Dependence on respirator [ventilator] status Assessment and Plan 1) Cardiac arrest, PEA on arrival deteriorating into Vfib requiring defibrillation 2) NSTEMI Probable Type 1 over Type 2 3) 2D echo pending 4) Hypothermia protocol for 24 hours Ok with bradycardia as natural effect 5) Overall concern for anoxic brain injury drove him to the hospital as he was not breathing, around 5-7 minutes Posturing noted Will await neurologic evaluation after rewarmed Aleks Boateng DO Aug 07, 2017 11:02
--- NOTE | 2017-08-07 17:51 | HHI.CCPN ---
Subjective Remarks/Hospital Course Hospital Course: This is a 62-year-old male who presented by private vehicle for acute altered mental status. Per ER reports, he was riding with his through [place] when he passed out. She immediately turned and drove to the [place] emergency department where in the ER he was found to be in PEA arrest. The states that was approximately 3-5 minutes of [address] before she arrived to the ER. After ACLS, ROSC was obtained. A poor neurologic exam and was emergently transferred to [facility]. I evaluated the patient upon arrival to the CVICU. He had pupils that were 6 mm, sluggishly reactive, deviated to the left. He was extensor posturing in the upper extremities and flexor posturing in the lowers. He had a head CT that was negative for acute intracranial hemorrhage. There was some report from the emergency department that at least one rhythm during ACLS was ventricular fibrillation, suggesting a possible ischemic component to this cardiac arrest. I had a discussion with Dr. Boateng with cardiology and we both agree the patient would be a good hypothermic candidate. No additional information is available from the patient due to his clinical condition. ROS unobtainable. subjective: 08/07: hypothermic today. bradycardic, but off pressors. remains critically ill. troponin significantly elevated, but slightly downtrended. Objective Vital Signs Date Time Temp Pulse Resp B/P (MAP) Pulse Ox O2 Delivery O2 Flow Rate FiO2 08/07/17 16:12 99 35 08/07/17 15:14 91.0 38 15 119/67 (84) 08/07/17 15:14 Mechanical Ventilator 08/06/17 12:10 2.00 Intake and Output 08/07/17 08/07/17 08/08/17 08:00 16:00 00:00 Intake Total 2150 ml 500 ml 1350 ml Output Total 1913 ml 515 ml Balance 237 ml 500 ml 835 ml Result Diagram: 08/07/1739908/07/17 040 Objective Remarks GENERAL: Middle-aged male, lying in bed, unresponsive, comatose HEENT: Normocephalic. Atraumatic. Pupils are 6 mm, deviated to the left, sluggishly reactive. Mucous membranes are moist NECK: Trachea is midline. There is no JVD. CHEST: Equal chest rise. PRVC. 40% FiO2. CARDIOVASCULAR: Tachycardic rate, regular rhythm. Sinus tachycardia by telemetry. ABDOMEN: Soft, nontender, nondistended. No guarding. MUSCULOSKELETAL: Pulses 2+. No peripheral edema. Extremities are cool and poorly perfused NEUROLOGICAL: GCS 4/5 (E1 V1 M 2/3) RASS -5. Extensor postures in the upper extremities, flexor postures in the lower extremities. Upgoing Babinski. Positive cough. Positive gag. Positive corneals. Inappropriate doll's eyes. Pupils as above. A/P Assessment and Plan Assessment: 62-year-old male with out of hospital cardiac arrest and at least one rhythm strip suggesting ventricular fibrillation or a coronary ischemia component to his arrest. Given age and lack of medical comorbidities he would be a good candidate for therapeutic hypothermia. Continue hypothermic protocol today, then rewarm tomorrow. cardiology following. very critically ill. Plan by systems: Neurologic: Hypoxic ischemic encephalopathy continue hypothermic protocol. Frequent neuro checks Nimbex to prevent shivering Propofol for sedation Given deviated eyes, will load with keppra eeg Respiratory: Acute hypoxic hypercarbic respiratory failure Vent bundle Head of bed 30 Nebs Wean FiO2 for goal SPO2 greater than 92% No weaning of ventilator until neurologic exam improves Cardiovascular: Status post out of hospital cardiac arrest Ventricular fibrillation Possible ACS Serial troponins Cardiology consult: Dr. Boateng heparin drip Levophed for goal map greater than 65 Renal: Acute kidney injury keep Rizvi catheter -- Strict I/Os FEN/GI: N.p.o. Maintenance IV fluids ICU electrolyte protocol Heme/ID: Daily CBC No infectious etiology suspected this time Endocrine: Hyperglycemia of critical illness -- SSI, medium scale, every 6 Prophylaxis: GI Prophylaxis Pepcid IV DVT Prophylaxis -- SCDs heparin drip Lines: Right femoral triple lumen catheter 08/06 Left femoral code cool catheter 08/06 Left femoral arterial line 08/06 Rizvi Dispo: remain in CVICU. critically ill This patient remains critically ill with one or more organ systems which are or may become a threat to life. I have spent in excess of 31 minutes discontinuously in the care and management of this patient. This time is exclusive of procedures, and includes, but is not limited to, evaluation of the patient, review of the medical record, discussions with family, consultants, nursing staff, or respiratory therapy, and documentation in the medical record. Luis Juarez MD Aug 07, 2017 17:51
[2017-08-07] MEDS: HEPARIN 25,000 UNITS-D5W 250 ML - PREMIX IV PRN (20:42)
[2017-08-08] VITALS (13 sets, daily range): BP systolic 82–130; BP diastolic 59–84; PULSE 56–77; RESP 15–16; TEMP 94.2–98.6; O2SAT 92–99
[2017-08-08] MEDS: CISATRACURIUM INJ 100 MG in SODIUM CHLOR 0.9% 250 ML INJ 240 ML IV PRN ×2 (02:08→06:22)
[2017-08-08] MEDS: RESP: ALBUTEROL 2.5 MG/IPRATROPIUM 0.5 MG NEB (SCH) INH ×4 (03:24→19:30)
[2017-08-08] MEDS: CHLORHEXIDINE GLUCONATE 2 % 1 PACK (2 CLOTHS) TOP SCH (04:00)
[2017-08-08] MEDS: PROPOFOL 1000 MG/100 ML IV PRN ×4 (04:30→18:13)
[2017-08-08] MEDS: SODIUM CHLOR 0.9% 1000 ML INJ 1,000 ML IV SCH ×2 (04:32→14:41)
[2017-08-08 04:40] LABS: HEMATOCRIT 31.1 % (39.0-51.0); MEAN CELL VOLUME 80.3 FL (80.0-100.0); MEAN CORPUSCULAR HEMOGLOBIN 25.8 PG (27.0-34.0); MEAN CORPUSCULAR HGB CONC 32.2 % (32.0-36.0); MEAN PLATELET VOLUME 9.7 FL (7.0-11.0); PLATELET COUNT 87 TH/MM3 (150-450); RED BLOOD COUNT 3.87 MIL/MM3 (4.50-5.90); RED CELL DISTRIBUTION WIDTH 20.3 % (11.6-17.2); WHITE BLOOD COUNT 5.2 TH/MM3 (4.0-11.0)
[2017-08-08 05:08] LABS: BICARBONATE 22.1 MEQ/L (21.0-32.0); CALCIUM 7.8 MG/DL (8.5-10.1); CREATININE 0.75 MG/DL (0.60-1.30)
[2017-08-08] MEDS: POTASSIUM CHLOR 20 MEQ PREMIX 100 ML IV PRN ×2 (05:39→05:40)
[2017-08-08] MEDS: INSULIN NovoLIN REGULAR SUPPLEMENTAL SCALE SQ SCH ×4 (06:00→18:00)
[2017-08-08] MEDS: CHLORHEXIDINE 0.12% (ORAL KIT) 15 ML CUP MT SCH ×2 (08:04→20:00)
[2017-08-08] MEDS: SODIUM CHLORIDE 0.9% FLUSH 10 ML FLUSH IV FLUSH SCH ×2 (08:04→21:00)
[2017-08-08] MEDS: DOCUSATE SODIUM 50 MG/SENNA 8.6 MG TAB PO SCH ×2 (08:12→21:23)
[2017-08-08] MEDS: FAMOTIDINE 20 MG/2 ML VIAL IV PUSH SCH ×2 (08:12→21:23)
--- NOTE | 2017-08-08 08:14 | HHI.CCPN ---
Subjective Remarks/Hospital Course Hospital Course: This is a 62-year-old male who presented by private vehicle for acute altered mental status. Per ER reports, he was riding with his through [place] when he passed out. She immediately turned and drove to the [place] emergency department where in the ER he was found to be in PEA arrest. The states that was approximately 3-5 minutes of driving before she arrived to the ER. After ACLS, ROSC was obtained. A poor neurologic exam and was emergently transferred to [facility]. I evaluated the patient upon arrival to the CVICU. He had pupils that were 6 mm, sluggishly reactive, deviated to the left. He was extensor posturing in the upper extremities and flexor posturing in the lowers. He had a head CT that was negative for acute intracranial hemorrhage. There was some report from the emergency department that at least one rhythm during ACLS was ventricular fibrillation, suggesting a possible ischemic component to this cardiac arrest. I had a discussion with Dr. Boateng with cardiology and we both agree the patient would be a good hypothermic candidate. No additional information is available from the patient due to his clinical condition. ROS unobtainable. subjective: 08/07: hypothermic today. bradycardic, but off pressors. remains critically ill. troponin significantly elevated, but slightly downtrended. 08/08: Patient is in the rewarming phase. Pupils remain 2 mm sluggish. Will be completing rewarming by known, I will repeat neuro exam at this time. Chest x- ray pending Objective Vital Signs Date Time Temp Pulse Resp B/P (MAP) Pulse Ox O2 Delivery O2 Flow Rate FiO2 08/08/17 07:58 99 35 08/08/17 07:00 60 08/08/17 07:00 95.9 15 122/84 (97) 130/75 (93) 08/08/17 07:00 Mechanical Ventilator 08/06/17 12:10 2.00 Intake and Output 08/08/17 08/08/17 08/09/17 08:00 16:00 00:00 Intake Total 1600 ml Output Total 595 ml Balance 1005 ml Result Diagram: 08/08/17 0400 08/08/17 0400 Objective Remarks GENERAL: Middle-aged male, lying in bed, unresponsive, comatose. On neuromuscular paralysis HEENT: Normocephalic. Atraumatic. Pupils are 2 mm, sluggishly reactive. Mucous membranes are moist NECK: Trachea is midline. There is no JVD. CHEST: Equal chest rise. PRVC. 35% FiO2. CARDIOVASCULAR: Tachycardic rate, regular rhythm. Sinus tachycardia by telemetry. ABDOMEN: Soft, nontender, nondistended. MUSCULOSKELETAL: Pulses 2+. No peripheral edema. Extremities are cool and poorly perfused NEUROLOGICAL: Intubated heavily sedated and neuromuscularly paralyzed. Pupils as above. Otherwise neuro exam limited due to neuromuscular paralysis A/P Assessment and Plan Assessment: 62-year-old male with out of hospital cardiac arrest and at least one rhythm strip suggesting ventricular fibrillation or a coronary ischemia component to his arrest. Given age and lack of medical comorbidities he underwent therapeutic hypothermia. Rewarm will be completed by noon. cardiology following. very critically ill. Plan by systems: Neurologic: Hypoxic ischemic encephalopathy continue hypothermic protocol, neuro exam after completion today Frequent neuro checks. Nimbex to prevent shivering-wean to DC Propofol for sedation Loaded with keppra for eye deviation, possible seizure eeg pending Respiratory: Acute hypoxic hypercarbic respiratory failure Vent bundle, Head of bed 30, Nebs Wean FiO2 for goal SPO2 greater than 90% No weaning of ventilator until neurologic exam improves Cardiovascular: Status post out of hospital cardiac arrest Ventricular fibrillation ACS Serial troponins, Cardiology Dr. Boateng. If good neurological recovery may need cardiac catheterization heparin drip Levophed for goal map greater than 65 Renal: Acute kidney injury keep Rizvi catheter -- Strict I/Os Creatinine has normalized FEN/GI: N.p.o. start tube feeds after completing therapeutic hypothermia Maintenance IV fluids ICU electrolyte protocol Heme/ID: Daily CBC No infectious etiology suspected this time Check chest x-ray today Endocrine: Hyperglycemia of critical illness -- SSI, medium scale, every 6 Prophylaxis: GI Prophylaxis Pepcid IV DVT Prophylaxis -- SCDs heparin drip Lines: Right femoral triple lumen catheter 08/06-DC today Left femoral code cool catheter 08/06 Left femoral arterial line 08/06 Rizvi Dispo: remain in CVICU. critically ill This patient remains critically ill with one or more organ systems which are or may become a threat to life. I have spent in excess of 30 minutes discontinuously in the care and management of this patient. This time is exclusive of procedures, and includes, but is not limited to, evaluation of the patient, review of the medical record, discussions with family, consultants, nursing staff, or respiratory therapy, and documentation in the medical record. Elizabeth Curiel MD Aug 08, 2017 08:14
[2017-08-08] MEDS: fentaNYL DRIP 250 ML IV PRN ×2 (08:15→18:12)
[2017-08-08] MEDS: MEPERIDINE HCL 25 MG/ML VIAL IV PUSH PRN (09:50)
--- NOTE | 2017-08-08 09:59 | RADRPT ---
EXAM DATE/TIME: 08/08/2017 08:22 [place] COMPARISON: CHEST SINGLE AP, August 06, 2017, 9:22. INDICATIONS : Respiratory disease. Status post intubation and nasogastric tube placement. Altered mental status MEDICAL HISTORY : Carcinoma, prostatic. Hypertension SURGICAL HISTORY : Gastric bypass. ENCOUNTER: Subsequent ACUITY: 2 days PAIN SCORE: Non-responsive. LOCATION: Bilateral chest FINDINGS: A single AP supine portable view of the chest was obtained and demonstrates interval intubation with the endotracheal tube tip approximately 3-4 cm above the danny. A nasogastric tube has been placed a nd is seen coursing through the esophagus and into the stomach. A small temperature probe is noted. T he study is Midinspiratory with overlying oxygen tubing and electrocardiogram leads. No confluent inf iltrates or effusions are identified. The heart size is at the upper limits of normal. The bony thora x is intact. CONCLUSION: 1. Interval intubation and placement of nasogastric tube. 2. Midinspiratory study with multiple overlying artifact and no definite acute cardiac pulmonary dise ase. Hussain Cuba MD on August 08, 2017 at 9:55 Board Certified Radiologist. This report was verified electronically.
--- NOTE | 2017-08-08 13:19 | ECHRPT ---
Indication: CARDIAC ARREST CONCLUSIONS Normal left ventricular size. Moderate concentric left ventricular hypertrophy. The left ventricular systolic function is normal with an estimated ejection fraction in the range of 55-60%. The left atrial size is naig-[id number] dilated. The right atrial size is mildly dilated. The interatrial septum not well visualized. Trace mitral valve regurgitation. Aortic valve sclerosis is present. Trace aortic valve regurgitation. There is mild tricuspid valve regurgitation. The estimated pulmonary arterial pressure is 41.6 mmHg. Trivial pulmonary valve regurgitation. The inferior vena cava was not well visualized. BP: 124 / 72 HR: 60 Rhythm: Sinus MEASUREMENTS (Male / Female) Normal Values Technical Quality:Fair 2D ECHO LV Diastolic Diameter PLAX 4.3 cm 4.2 - 5.9 / 3.9 - 5.3 cm LV Systolic Diameter PLAX 3.5 cm IVS Diastolic Thickness 1.6 cm 0.6 - 1.0 / 0.6 - 0.9 cm LVPW Diastolic Thickness 1.6 cm 0.6 - 1.0 / 0.6 - 0.9 cm LV Relative Wall Thickness 0.7 RV Internal Dim ED PLAX 2.2 cm LVOT Diameter 2.4 cm Aortic Root Diameter 4.0 cm LA Systolic Diameter LX 3.9 cm 3.0 - 4.0 / 2.7 - 3.8 cm M-MODE AV Cusp Separation MM 1.7 cm DOPPLER AV Peak Velocity 138.0 cm/s AV Peak Gradient 7.6 mmHg AV Mean Gradient 5.0 mmHg AV Velocity Time Integral 24.4 cm LVOT Peak Velocity 89.3 cm/s LVOT Peak Gradient 3.2 mmHg LVOT Velocity Time Integral 17.2 cm AV Area Cont Eq vti 3.2 cm AV Area Cont Eq pk 2.9 cm Mitral E Point Velocity 26.9 cm/s Mitral A Point Velocity 80.5 cm/s Mitral E to A Ratio 0.3 LV E' Lateral Velocity 6.9 cm/s Mitral E to LV E' Lateral Ratio 3.9 LV E' Septal Velocity 4.7 cm/s Mitral E to LV E' Septal Ratio 5.7 TR Peak Velocity 281.0 cm/s TR Peak Gradient 31.6 mmHg Right Atrial Pressure 10.0 mmHg Pulmonary Artery Systolic Pressu 41.6 mmHg Right Ventricular Systolic Press 41.6 mmHg PV Peak Velocity 54.9 cm/s PV Peak Gradient 1.2 mmHg FINDINGS LEFT VENTRICLE Normal left ventricular size. Moderate concentric left ventricular hypertrophy. The left ventricular systolic function is normal with an estimated ejection fraction in the range of 55-60%. RIGHT VENTRICLE Normal right ventricular size and systolic function. LEFT ATRIUM The left atrial size is [id number] dilated. RIGHT ATRIUM The right atrial size is mildly dilated. ATRIAL SEPTUM The interatrial septum not well visualized. AORTA The aortic root and proximal ascending aorta are normal in size on limited imaging. MITRAL VALVE Trace mitral valve regurgitation. AORTIC VALVE Aortic valve sclerosis is present. Trace aortic valve regurgitation. TRICUSPID VALVE There is mild tricuspid valve regurgitation. The estimated pulmonary arterial pressure is 41.6 mmHg. PULMONARY VALVE Trivial pulmonary valve regurgitation. VESSELS The inferior vena cava was not well visualized. PERICARDIUM No pericardial effusion. Brendan Cuadra MD, FACC (Electronically Signed) Final Date:08 August 2017 13:19
[2017-08-08] MEDS: NOREPINEPHRINE-DEXTROSE DRIP 250 ML IV PRN (15:31)
[2017-08-08] MEDS ORDERED: SODIUM CHLOR 0.9% 1000 ML INJ 1,000 ML IV ONE (16:30)
[2017-08-08] MEDS: HEPARIN 25,000 UNITS-D5W 250 ML - PREMIX IV PRN (16:56)
--- NOTE | 2017-08-08 18:01 | PD.CARD.PN ---
Subjective Subjective Remarks Rewarmed, reached goal at 12:30pm Objective Medications Current Medications Medications (Trade) Dose Ordered Sig/Rogerio Route Start Time Stop Time Status Last Admin (Brethine Inj) 1 mg UNSCH PRN SQ 08/06/17 09:15 (NS Flush) 2 ml UNSCH PRN IVF 08/06/17 09:30 08/07/17 08:59 Nitroglycerin/ Dextrose 250 ml @ 3 mls/hr TITRATE PRN IV 08/06/17 10:45 Propofol 100 ml @ 2.7 mls/hr TITRATE PRN IV 08/06/17 14:15 08/08/17 14:40 Norepinephrine Bitartrate 250 ml @ 7.5 mls/hr TITRATE PRN IV 08/06/17 14:15 08/08/17 15:31 (Trandate Inj) 20 mg Q15M PRN IV PUSH 08/06/17 16:45 (Apresoline Inj) 10 mg Q30M PRN IV PUSH 08/06/17 16:45 08/06/17 18:01 Potassium Chloride 100 ml @ 50 mls/hr Q2H PRN IV 08/06/17 16:45 Potassium Chloride 100 ml @ 50 mls/hr Q2H PRN IV 08/06/17 16:45 (K-Lyte Cl Eff) 50 meq UNSCH PRN PO 08/06/17 16:45 Potassium Chloride 100 ml @ 25 mls/hr UNSCH PRN IV 08/06/17 16:45 08/07/17 00:24 Potassium Chloride 100 ml @ 50 mls/hr Q2H PRN IV 08/06/17 16:45 08/08/17 05:39 Magnesium Sulfate 4 gm/Sodium Chloride 100 ml @ 50 mls/hr UNSCH PRN IV 08/06/17 16:45 (Mag-Ox) 800 mg UNSCH PRN PO 08/06/17 16:45 Magnesium Sulfate 2 gm/Sodium Chloride 100 ml @ 50 mls/hr UNSCH PRN IV 08/06/17 16:45 08/07/17 06:06 (K-Phos) 2,000 mg Q4H PRN PO 08/06/17 16:45 Sodium Phosphate 30 mmol/Sodium Chloride 250 ml @ 42 mls/hr UNSCH PRN IV 08/06/17 16:45 (K-Phos) 2,000 mg UNSCH PRN PO/TUBE 08/06/17 16:45 Potassium Phosphate 30 mmol/ Sodium Chloride 260 ml @ 42 mls/hr UNSCH PRN IV 08/06/17 16:45 (Peridex 0.12% Liq) 15 ml BID@08,20 MT 08/06/17 20:00 08/08/17 08:04 (D50w (Vial) Inj) 25 ml UNSCH PRN IV PUSH 08/06/17 16:45 (NovoLIN R SUPPLEMENTAL SCALE) 1 Q6HR SQ 08/06/17 18:00 08/06/17 22:51 (Duoneb Neb) 1 ampule Q6HR NEB INH 08/06/17 22:00 08/08/17 16:04 (Duoneb Neb) 1 ampule Q2HR NEB PRN INH 08/06/17 16:45 Sodium Chloride 1,000 ml @ 84 mls/hr [id number] IV 08/06/17 16:31 08/08/17 14:41 (Pepcid Inj) 20 mg Q12HR IV PUSH 08/06/17 21:00 08/08/17 08:12 (Zofran Inj) 4 mg Q6H PRN IV PUSH 08/06/17 16:45 Miscellaneous Information 1 Q361D XX 08/06/17 16:45 (Chlorhexidine 2% Cloth) 3 pack Taper DAILY@04 TOP 08/07/17 04:00 08/03/18 03:59 (Chlorhexidine 2% Cloth) 3 pack UNSCH PRN TOP 08/06/17 16:45 (Rhianna-Colace) 1 tab BID PO 08/06/17 21:00 08/08/17 08:12 (Milk Of Magnesia Liq) 30 ml Q12H PRN PO 08/06/17 16:45 (Ativan Inj) 1 mg Q1H PRN IV PUSH 08/06/17 16:45 (Demerol Inj) 25 mg Q2H PRN IV PUSH 08/06/17 16:45 08/08/17 09:50 Cisatracurium Besylate 100 mg/ Sodium Chloride 250 ml @ 44.55 mls/ hr TITRATE PRN IV 08/06/17 17:15 08/08/17 06:22 (Lacrilube Opht Oint) 1 applic Q4H PRN EACH EYE 08/06/17 16:45 08/07/17 23:51 (NS Flush) 2 ml BID IV FLUSH 08/06/17 21:00 08/07/17 20:01 (NS Flush) 2 ml UNSCH PRN IV FLUSH 08/06/17 16:45 Miscellaneous Information 0 ml @ 0 mls/hr UNSCH IV 08/06/17 16:45 Fentanyl Citrate 250 ml @ 5 mls/hr TITRATE PRN IV 08/06/17 17:00 08/08/17 08:15 Heparin Sodium/ Dextrose 250 ml @ 10 mls/hr TITRATE PRN IV 08/07/17 06:30 08/08/17 16:56 (Heparin Inj) 5,000 units UNSCH PRN IV PUSH 08/07/17 06:30 (Heparin Inj) 2,500 units UNSCH PRN IV PUSH 08/07/17 06:30 Vital Signs / I&O Vital Signs Date Time Temp Pulse Resp B/P (MAP) Pulse Ox O2 Delivery O2 Flow Rate FiO2 08/08/17 16:04 98 45 08/08/17 16:00 45 08/08/17 15:31 63 82/59 08/08/17 15:00 98.6 64 16 82/59 (67) 99 100/61 (74) 08/08/17 15:00 99 Mechanical Ventilator 45 08/08/17 15:00 64 08/08/17 12:00 45 08/08/17 11:12 92 35 08/08/17 11:00 97.5 73 15 121/79 (93) 93 125/66 (85) 08/08/17 11:00 98.6 08/08/17 11:00 93 Mechanical Ventilator 35 08/08/17 11:00 77 08/08/17 08:00 35 08/08/17 07:58 99 35 08/08/17 07:00 60 08/08/17 07:00 95.9 63 15 122/84 (97) 99 130/75 (93) 08/08/17 07:00 99 Mechanical Ventilator 35 08/08/17 04:15 99 35 08/08/17 04:00 35 08/08/17 03:26 99 35 08/08/17 03:00 60 08/08/17 03:00 94.2 56 15 117/80 (92) 99 124/72 (89) 08/08/17 03:00 99 Mechanical Ventilator 35 08/08/17 00:13 99 35 08/08/17 00:00 99 Mechanical Ventilator 35 08/08/17 00:00 35 08/07/17 23:00 94.0 55 15 136/88 (104) 99 154/82 (106) 08/07/17 23:00 55 08/07/17 22:11 99 35 08/07/17 20:00 35 08/07/17 19:55 99 35 08/07/17 19:30 99 Mechanical Ventilator 35 08/07/17 19:00 47 08/07/17 19:00 91.0 49 15 134/82 (99) 99 147/71 (96) I/O 08/07/17 08/07/17 08/07/17 08/08/17 08/08/17 08/08/17 07:00 15:00 23:00 07:00 15:00 23:00 Intake Total 1550 ml 1200 ml 2300 ml 1600 ml 100 ml 1000 ml Output Total 1913 ml 515 ml 595 ml Balance -363 ml 1200 ml 1785 ml 1005 ml 100 ml 1000 ml Intake Oral 0 ml 0 ml IV Total 1550 ml 1200 ml 2300 ml 1600 ml 100 ml 1000 ml Output Urine Total 1863 ml 465 ml 570 ml Gastric Drainage Total 50 ml 50 ml 25 ml # Bowel Movements 0 0 0 Physical Exam GENERAL: Intubated, sedated SKIN: Warm/dry HEAD: Atraumatic. Normocephalic. EYES: Pupils equal and round. No scleral icterus. No injection or drainage. ENT: No nasal bleeding or discharge. Mucous membranes pink and moist. NECK: Trachea midline. No JVD. CARDIOVASCULAR: Bradycardic RESPIRATORY: No accessory muscle use. Clear to auscultation. Breath sounds equal bilaterally. GASTROINTESTINAL: Abdomen soft, non-tender, nondistended. Hepatic and splenic margins not palpable. MUSCULOSKELETAL: Extremities without clubbing, cyanosis, or edema. No obvious deformities. NEUROLOGICAL: Intubated, sedated Laboratory Laboratory Tests Test 08/07/17 19:50 08/08/17 04:00 Activated Partial Thromboplast Time 51.6 SEC 44.1 SEC White Blood Count 5.2 TH/MM3 Red Blood Count 3.87 MIL/MM3 Hemoglobin 10.0 GM/DL Hematocrit 31.1 % Mean Corpuscular Volume 80.3 FL Mean Corpuscular Hemoglobin 25.8 PG Mean Corpuscular Hemoglobin Concent 32.2 % Red Cell Distribution Width 20.3 % Platelet Count 87 TH/MM3 Mean Platelet Volume 9.7 FL Blood Urea Nitrogen 10 MG/DL Creatinine 0.75 MG/DL Random Glucose 91 MG/DL Calcium Level 7.8 MG/DL Sodium Level 143 MEQ/L Potassium Level 3.5 MEQ/L Chloride Level 111 MEQ/L Carbon Dioxide Level 22.1 MEQ/L Anion Gap 10 MEQ/L Estimat Glomerular Filtration Rate 105 ML/MIN Assessment and Plan Problem List: (1) Cardiopulmonary arrest with successful resuscitation ICD Codes: I46.9 - Cardiac arrest, cause unspecified Status: Acute (2) NSTEMI (non-ST elevated myocardial infarction) ICD Codes: I21.4 - Non-ST elevation (NSTEMI) myocardial infarction (3) On mechanically assisted ventilation ICD Codes: Z99.11 - Dependence on respirator [ventilator] status Assessment and Plan 1) Cardiac arrest, PEA on arrival deteriorating into Vfib requiring defibrillation 2) NSTEMI Probable Type 1 over Type 2 3) 2D echo pending 4) Hypothermia protocol for 24 hours Now rewarmed 5) Overall concern for anoxic brain injury drove him to the hospital as he was not breathing, around 5-7 minutes Posturing noted Will await neurologic function Concern with upper and left gaze occasionally as well as posturing Aleks Boateng DO Aug 08, 2017 18:01
[2017-08-09] VITALS (14 sets, daily range): BP systolic 86–137; BP diastolic 53–82; PULSE 50–83; RESP 15–16; TEMP 98–98.8; O2SAT 93–100
[2017-08-09] MEDS: RESP: ALBUTEROL 2.5 MG/IPRATROPIUM 0.5 MG NEB (SCH) INH ×4 (03:18→20:01)
[2017-08-09] MEDS: CHLORHEXIDINE GLUCONATE 2 % 1 PACK (2 CLOTHS) TOP SCH (04:00)
[2017-08-09 04:40] LABS: AUTOMATED NEUTROPHIL # 4.3 TH/MM3 (1.8-7.7); BASOPHIL % 0.2 % (0.0-2.0); EOSINOPHIL # 0.1 TH/MM3 (0-0.4); EOSINOPHIL % 0.9 % (0.0-4.0); HEMATOCRIT 30.1 % (39.0-51.0); HEMOGLOBIN 9.5 GM/DL (13.0-17.0); LYMPHOCYTE # 0.7 TH/MM3 (1.0-4.8); MEAN CELL VOLUME 82.8 FL (80.0-100.0); MEAN CORPUSCULAR HGB CONC 31.4 % (32.0-36.0); MEAN PLATELET VOLUME 9.9 FL (7.0-11.0); MONO % 8.3 % (0.0-8.0); MONOCYTE # 0.5 TH/MM3 (0-0.9); NEUT % 77.6 % (16.0-70.0); PLATELET COUNT 92 TH/MM3 (150-450); RED BLOOD COUNT 3.63 MIL/MM3 (4.50-5.90); RED CELL DISTRIBUTION WIDTH 19.9 % (11.6-17.2); WHITE BLOOD COUNT 5.5 TH/MM3 (4.0-11.0)
[2017-08-09 05:04] LABS: ALBUMIN 2.4 GM/DL (3.4-5.0); AST (GOT) 151 U/L (15-37); BICARBONATE 22.1 MEQ/L (21.0-32.0); BLOOD UREA NITROGEN 13 MG/DL (7-18); CALCIUM 7.6 MG/DL (8.5-10.1); CHLORIDE 113 MEQ/L (98-107); CREATININE 0.87 MG/DL (0.60-1.30); GLOMERULAR FILTRATION RATE 88 ML/MIN (>89); GLUCOSE,RANDOM 85 MG/DL (74-106); MAGNESIUM 1.7 MG/DL (1.5-2.5); SODIUM (NA) 143 MEQ/L (136-145)
[2017-08-09 05:09] LABS: ALKALINE PHOSPHATASE 75 U/L (45-117); ALT (GPT) 109 U/L (12-78); TOTAL BILIRUBIN ADULT 0.5 MG/DL (0.2-1.0); TOTAL PROTEIN 5.6 GM/DL (6.4-8.2)
[2017-08-09] MEDS: SODIUM CHLOR 0.9% 1000 ML INJ 1,000 ML IV SCH (05:13)
[2017-08-09] MEDS: INSULIN NovoLIN REGULAR SUPPLEMENTAL SCALE SQ SCH ×4 (06:00→18:00)
[2017-08-09 07:01] LABS: OVALOCYTES 1+ (NORMAL)
[2017-08-09] MEDS: CHLORHEXIDINE 0.12% (ORAL KIT) 15 ML CUP MT SCH ×2 (07:56→21:39)
[2017-08-09] MEDS: SODIUM CHLORIDE 0.9% FLUSH 10 ML FLUSH IV FLUSH SCH ×2 (09:00→21:39)
[2017-08-09] MEDS: FAMOTIDINE 20 MG/2 ML VIAL IV PUSH SCH ×2 (09:03→21:39)
[2017-08-09] MEDS: DOCUSATE SODIUM 50 MG/SENNA 8.6 MG TAB PO SCH ×2 (09:03→21:38)
[2017-08-09] MEDS: PROPOFOL 1000 MG/100 ML IV PRN (09:04)
[2017-08-09] MEDS ORDERED: DEXMEDETOMIDINE 200 MCG/50 ML Premix IV PRN (11:00)
--- NOTE | 2017-08-09 11:21 | HHI.CCPN ---
Subjective Remarks/Hospital Course Hospital Course: This is a 62-year-old male who presented by private vehicle for acute altered mental status. Per ER reports, he was riding with his through [place] when he passed out. She immediately turned and drove to the [facility] emergency department where in the ER he was found to be in PEA arrest. The states that was approximately 3-5 minutes of driving before she arrived to the ER. After ACLS, ROSC was obtained. A poor neurologic exam and was emergently transferred to [facility]. I evaluated the patient upon arrival to the CVICU. He had pupils that were 6 mm, sluggishly reactive, deviated to the left. He was extensor posturing in the upper extremities and flexor posturing in the lowers. He had a head CT that was negative for acute intracranial hemorrhage. There was some report from the emergency department that at least one rhythm during ACLS was ventricular fibrillation, suggesting a possible ischemic component to this cardiac arrest. I had a discussion with Dr. Boateng with cardiology and we both agree the patient would be a good hypothermic candidate. No additional information is available from the patient due to his clinical condition. ROS unobtainable. subjective: 08/07: hypothermic today. bradycardic, but off pressors. remains critically ill. troponin significantly elevated, but slightly downtrended. 08/08: Patient is in the rewarming phase. Pupils remain 2 mm sluggish. Will be completing rewarming by known, I will repeat neuro exam at this time. Chest x- ray pending 08/09: Rewarming completed yesterday. Remains encephalopathy. Moving all extremities spontaneously. No tracking did not follow commands. Asynchronous with the vent when sedation is held, start Precedex to facilitate neuro exam Objective Vital Signs Date Time Temp Pulse Resp B/P (MAP) Pulse Ox O2 Delivery O2 Flow Rate FiO2 08/09/17 11:00 100 Mechanical Ventilator 45 08/09/17 11:00 98.8 54 15 87/63 (71) 93/53 (66) 08/06/17 12:10 2.00 Intake and Output 08/09/17 08/09/17 08/10/17 08:00 16:00 00:00 Intake Total 3465 ml Output Total 375 ml Balance 3090 ml Result Diagram: 08/09/17 0410 08/09/17 0410 Other Results Microbiology Date/Time Source Procedure Growth Status 08/06/17 22:15 Sputum Endotracheal Gram Stain - Final Complete 08/06/17 22:15 Sputum Culture - Final Staphylococcus Aureus Complete Objective Remarks GENERAL: Middle-aged male, lying in bed, comatose. HEENT: Normocephalic. Atraumatic. Pupils are 2 mm, sluggishly reactive. Mucous membranes are moist NECK: Trachea is midline. There is no JVD. CHEST: Equal chest rise. PRVC. 35% FiO2. CARDIOVASCULAR: Tachycardic rate, regular rhythm. Sinus tachycardia by telemetry. ABDOMEN: Soft, nontender, nondistended. MUSCULOSKELETAL: Pulses 2+. No peripheral edema. Extremities poorly perfused NEUROLOGICAL: Intubated heavily sedated. Pupils as above. Spontaneously moves upper and lower extremities, on sedation hold. No tracking no following of commands A/P Assessment and Plan Assessment: 62-year-old male with out of hospital cardiac arrest and at least one rhythm strip suggesting ventricular fibrillation or a coronary ischemia component to his arrest. Given age and lack of medical comorbidities he underwent therapeutic hypothermia. Rewarm will be completed by noon. cardiology following. very critically ill. Plan by systems: Neurologic: Hypoxic ischemic encephalopathy Completed hypothermic protocol. Frequent neuro checks. Discontinue propofol and fentanyl Start Precedex to facilitate neuro exam and for weaning Loaded with keppra for eye deviation, possible seizure eeg pending Check MRI brain without contrast. Neurology consult depending on the result Respiratory: Acute hypoxic hypercarbic respiratory failure Vent bundle, Head of bed 30, Nebs Wean FiO2 for goal SPO2 greater than 90% No weaning of ventilator until neurologic exam improves Follow-up and sputum cultures Cardiovascular: Status post out of hospital cardiac arrest Ventricular fibrillation ACS Serial troponins, Cardiology Dr. Boateng. If good neurological recovery may need cardiac catheterization heparin drip Levophed for goal map greater than 65 Renal: Acute kidney injury keep Rizvi catheter -- Strict I/Os Creatinine has normalized FEN/GI: Start tube feeds with Jevity Maintenance IV fluids ICU electrolyte protocol Heme/ID: Daily CBC No infectious etiology suspected this time Chest x-ray no acute findings Endocrine: Hyperglycemia of critical illness -- SSI, medium scale, every 6 Prophylaxis: GI Prophylaxis Pepcid IV DVT Prophylaxis -- SCDs heparin drip-change to sq heparin Lines: Right femoral triple lumen catheter 08/06-DCd Left femoral code cool catheter 08/06-DC in 24 hours Left femoral arterial line 08/06-DC today 08/09 Rizvi Dispo: remain in CVICU. critically ill This patient remains critically ill with one or more organ systems which are or may become a threat to life. I have spent in excess of 32 minutes discontinuously in the care and management of this patient. This time is exclusive of procedures, and includes, but is not limited to, evaluation of the patient, review of the medical record, discussions with family, consultants, nursing staff, or respiratory therapy, and documentation in the medical record. Elizabeth Curiel MD Aug 09, 2017 11:21
[2017-08-09] MEDS: DEXT 5%-NACL 0.9% 1000 ML INJ 1,000 ML IV SCH (11:31)
--- NOTE | 2017-08-09 11:58 | PD.CARD.PN ---
Subjective Subjective Remarks Rewarmed, reached goal at 12:30pm Moving extremities spontaneously but not purposeful Objective Medications Current Medications Medications (Trade) Dose Ordered Sig/Rogerio Route Start Time Stop Time Status Last Admin (Brethine Inj) 1 mg UNSCH PRN SQ 08/06/17 09:15 (NS Flush) 2 ml UNSCH PRN IVF 08/06/17 09:30 08/07/17 08:59 Norepinephrine Bitartrate 250 ml @ 7.5 mls/hr TITRATE PRN IV 08/06/17 14:15 08/08/17 15:31 (Trandate Inj) 20 mg Q15M PRN IV PUSH 08/06/17 16:45 (Apresoline Inj) 10 mg Q30M PRN IV PUSH 08/06/17 16:45 08/06/17 18:01 Potassium Chloride 100 ml @ 50 mls/hr Q2H PRN IV 08/06/17 16:45 Potassium Chloride 100 ml @ 50 mls/hr Q2H PRN IV 08/06/17 16:45 (K-Lyte Cl Eff) 50 meq UNSCH PRN PO 08/06/17 16:45 Potassium Chloride 100 ml @ 25 mls/hr UNSCH PRN IV 08/06/17 16:45 08/07/17 00:24 Potassium Chloride 100 ml @ 50 mls/hr Q2H PRN IV 08/06/17 16:45 08/08/17 05:39 Magnesium Sulfate 4 gm/Sodium Chloride 100 ml @ 50 mls/hr UNSCH PRN IV 08/06/17 16:45 (Mag-Ox) 800 mg UNSCH PRN PO 08/06/17 16:45 Magnesium Sulfate 2 gm/Sodium Chloride 100 ml @ 50 mls/hr UNSCH PRN IV 08/06/17 16:45 08/07/17 06:06 (K-Phos) 2,000 mg Q4H PRN PO 08/06/17 16:45 Sodium Phosphate 30 mmol/Sodium Chloride 250 ml @ 42 mls/hr UNSCH PRN IV 08/06/17 16:45 (K-Phos) 2,000 mg UNSCH PRN PO/TUBE 08/06/17 16:45 Potassium Phosphate 30 mmol/ Sodium Chloride 260 ml @ 42 mls/hr UNSCH PRN IV 08/06/17 16:45 (Peridex 0.12% Liq) 15 ml BID@08,20 MT 08/06/17 20:00 08/09/17 07:56 (D50w (Vial) Inj) 25 ml UNSCH PRN IV PUSH 08/06/17 16:45 (NovoLIN R SUPPLEMENTAL SCALE) 1 Q6HR SQ 08/06/17 18:00 08/06/17 22:51 (Duoneb Neb) 1 ampule Q6HR NEB INH 08/06/17 22:00 08/09/17 07:58 (Duoneb Neb) 1 ampule Q2HR NEB PRN INH 08/06/17 16:45 (Pepcid Inj) 20 mg Q12HR IV PUSH 08/06/17 21:00 08/09/17 09:03 (Zofran Inj) 4 mg Q6H PRN IV PUSH 08/06/17 16:45 Miscellaneous Information 1 Q361D XX 08/06/17 16:45 (Chlorhexidine 2% Cloth) 3 pack Taper DAILY@04 TOP 08/07/17 04:00 08/03/18 03:59 08/09/17 04:00 (Chlorhexidine 2% Cloth) 3 pack UNSCH PRN TOP 08/06/17 16:45 (Rhianna-Colace) 1 tab BID PO 08/06/17 21:00 08/09/17 09:03 (Milk Of Magnesia Liq) 30 ml Q12H PRN PO 08/06/17 16:45 (Ativan Inj) 1 mg Q1H PRN IV PUSH 08/06/17 16:45 (Lacrilube Opht Oint) 1 applic Q4H PRN EACH EYE 08/06/17 16:45 08/07/17 23:51 (NS Flush) 2 ml BID IV FLUSH 08/06/17 21:00 08/08/17 21:00 (NS Flush) 2 ml UNSCH PRN IV FLUSH 08/06/17 16:45 Miscellaneous Information 0 ml @ 0 mls/hr UNSCH IV 08/06/17 16:45 Dexmedetomidine HCl 50 ml @ 5.75 mls/hr TITRATE PRN IV 08/09/17 11:00 08/09/17 11:31 (Heparin Inj) 5,000 units Q8HR SQ 08/09/17 14:00 Dextrose/Sodium Chloride 1,000 ml @ 50 mls/hr Q20H IV 08/09/17 11:30 08/09/17 11:31 Vital Signs / I&O Vital Signs Date Time Temp Pulse Resp B/P (MAP) Pulse Ox O2 Delivery O2 Flow Rate FiO2 08/09/17 11:18 100 45 08/09/17 11:11 53 08/09/17 11:00 100 Mechanical Ventilator 45 08/09/17 11:00 98.8 54 15 87/63 (71) 100 93/53 (66) 08/09/17 08:00 45 08/09/17 07:58 99 45 08/09/17 07:00 99 Mechanical Ventilator 50 08/09/17 07:00 98.8 83 15 122/79 (93) 99 118/66 (83) 08/09/17 07:00 69 08/09/17 04:00 50 08/09/17 03:47 99 50 08/09/17 03:00 57 08/09/17 03:00 99 50 08/09/17 03:00 98.6 64 15 86/59 (68) 99 101/58 (72) 08/09/17 00:00 99 50 08/09/17 00:00 60 08/09/17 00:00 67 86/57 08/08/17 23:00 71 08/08/17 23:00 99 60 08/08/17 23:00 98.6 73 15 94/62 (73) 99 110/63 (79) 08/08/17 20:00 94 60 08/08/17 20:00 45 08/08/17 19:30 99 45 08/08/17 19:00 94 45 08/08/17 19:00 98.6 75 15 94/68 (77) 94 110/61 (77) 08/08/17 19:00 75 08/08/17 16:04 98 45 08/08/17 16:00 45 08/08/17 15:31 63 82/59 08/08/17 15:00 98.6 64 16 82/59 (67) 99 100/61 (74) 08/08/17 15:00 99 Mechanical Ventilator 45 08/08/17 15:00 64 08/08/17 12:00 45 I/O 3/26/18 3/2608/08/17 08/09/17 08/09/17 08/09/17 07:00 15:00 23:00 07:00 15:00 23:00 Intake Total 1600 ml 100 ml 1000 ml 3465 ml Output Total 595 ml 350 ml 375 ml Balance 1005 ml 100 ml 650 ml 3090 ml Intake Oral 0 ml IV Total 1600 ml 100 ml 1000 ml 3358 ml Tube Feeding 107 ml Output Urine Total 570 ml 350 ml 375 ml Gastric Drainage Total 25 ml # Bowel Movements 0 Physical Exam GENERAL: Intubated, sedated SKIN: Warm/dry HEAD: Atraumatic. Normocephalic. EYES: Pupils equal and round. No scleral icterus. No injection or drainage. ENT: No nasal bleeding or discharge. Mucous membranes pink and moist. NECK: Trachea midline. No JVD. CARDIOVASCULAR: Bradycardic RESPIRATORY: No accessory muscle use. Clear to auscultation. Breath sounds equal bilaterally. GASTROINTESTINAL: Abdomen soft, non-tender, nondistended. Hepatic and splenic margins not palpable. MUSCULOSKELETAL: Extremities without clubbing, cyanosis, or edema. No obvious deformities. NEUROLOGICAL: Intubated, sedated Laboratory Laboratory Tests Test 08/09/17 04:10 08/09/17 09:50 White Blood Count 5.5 TH/MM3 Red Blood Count 3.63 MIL/MM3 Hemoglobin 9.5 GM/DL Hematocrit 30.1 % Mean Corpuscular Volume 82.8 FL Mean Corpuscular Hemoglobin 26.0 PG Mean Corpuscular Hemoglobin Concent 31.4 % Red Cell Distribution Width 19.9 % Platelet Count 92 TH/MM3 Mean Platelet Volume 9.9 FL Neutrophils (%) (Auto) 77.6 % Lymphocytes (%) (Auto) 13.0 % Monocytes (%) (Auto) 8.3 % Eosinophils (%) (Auto) 0.9 % Basophils (%) (Auto) 0.2 % Neutrophils # (Auto) 4.3 TH/MM3 Lymphocytes # (Auto) 0.7 TH/MM3 Monocytes # (Auto) 0.5 TH/MM3 Eosinophils # (Auto) 0.1 TH/MM3 Basophils # (Auto) 0.0 TH/MM3 CBC Comment AUTO DIFF Differential Comment AUTO DIFF CONFIRMED Platelet Estimate LOW Platelet Morphology Comment NORMAL Ovalocytes 1+ Activated Partial Thromboplast Time 33.5 SEC 38.7 SEC Blood Urea Nitrogen 13 MG/DL Creatinine 0.87 MG/DL Random Glucose 85 MG/DL Total Protein 5.6 GM/DL Albumin 2.4 GM/DL Calcium Level 7.6 MG/DL Magnesium Level 1.7 MG/DL Alkaline Phosphatase 75 U/L Aspartate Amino Transf (AST/SGOT) 151 U/L Alanine Aminotransferase (ALT/SGPT) 109 U/L Total Bilirubin 0.5 MG/DL Sodium Level 143 MEQ/L Potassium Level 3.9 MEQ/L Chloride Level 113 MEQ/L Carbon Dioxide Level 22.1 MEQ/L Anion Gap 8 MEQ/L Estimat Glomerular Filtration Rate 88 ML/MIN Assessment and Plan Problem List: (1) Cardiopulmonary arrest with successful resuscitation ICD Codes: I46.9 - Cardiac arrest, cause unspecified Status: Acute (2) NSTEMI (non-ST elevated myocardial infarction) ICD Codes: I21.4 - Non-ST elevation (NSTEMI) myocardial infarction (3) On mechanically assisted ventilation ICD Codes: Z99.11 - Dependence on respirator [ventilator] status Assessment and Plan 1) Cardiac arrest, PEA on arrival deteriorating into Vfib requiring defibrillation 2) NSTEMI Probable Type 1 over Type 2 3) 2D echo pending 4) Hypothermia protocol for 24 hours Now rewarmed 5) Overall concern for anoxic brain injury drove him to the hospital as he was not breathing, around 5-7 minutes Posturing noted Will await neurologic function Concern with upper and left gaze occasionally as well as posturing 6) Discussed with , may want to see palliative care tomorrow depending on her 's clinical course on Precedex Aleks Boateng DO Aug 09, 2017 11:58
[2017-08-09] MEDS ORDERED: PROPOFOL 500 MG/50 ML INJ 50 ML ONE ×2 (13:44→15:25)
--- NOTE | 2017-08-09 14:18 | MG ---
cc: Roberto Inman MD, PhD Test number [id number]. TECHNIQUE: This is a 17-channel EEG. DESCRIPTION: The background rhythm is generally slow in the delta frequency roughly 3-4 Hz. The amplitude is 5-10 microvolts. There are no lateralizing features present and there are no epileptiform discharges present. Photic stimulation does not result in any type of significant driving response. INTERPRETATION: Abnormal study consistent with severe encephalopathy. Roberto Inman MD, PhD JESSE/TL , 02:11 PM , 02:18 PM
[2017-08-09] MEDS: HEPARIN SODIUM - SQ 10,000 UNITS/ML VIAL SQ SCH ×2 (14:59→21:40)
[2017-08-09] MEDS ORDERED: EPINEPHrine HCL (1:10,000) 1 MG/10 ML SYRINGE ONE (15:25)
[2017-08-09] MEDS ORDERED: ATROPINE SULFATE 1 MG/10 ML SYRINGE ONE (15:26)
--- NOTE | 2017-08-09 17:09 | RADRPT ---
EXAM DATE/TIME: 08/09/2017 15:52 [facility] COMPARISON: CT BRAIN W/O CONTRAST, August 06, 2017, 14:10. INDICATIONS : Anoxic brain injury. MEDICAL HISTORY : Vented. SURGICAL HISTORY : Gastric bypass, Hernia repair, Back sx. ENCOUNTER: Initial ACUITY: 1 day PAIN SCORE: Nonresponsive. LOCATION: Bilateral cranial TECHNIQUE: Multiplanar, multisequence MRI of the brain was performed without contrast. FINDINGS: CEREBRUM: The ventricles are normal for age. No evidence of midline shift, mass lesion, hemorrhage or acute in farction. No extraaxial fluid collections are seen. The pituitary gland and suprasellar cistern are normal in configuration. WHITE MATTER: No significant signal abnormalities are seen in the white matter. POSTERIOR FOSSA: The cerebellum and brainstem are intact. The 4th ventricle is midline. The cerebellopontine angle is unremarkable. The cerebellar tonsils are normal in position. DIFFUSION IMAGING: No focal areas of restricted diffusion are seen. No evidence of acute infarction. EXTRACRANIAL: The visualized portions of the orbits and paranasal sinuses are unremarkable. CONCLUSION: Normal examination. Moisés Pineda MD on August 09, 2017 at 17:06 Board Certified Radiologist. This report was verified electronically.
[2017-08-09] MEDS: DEXMEDETOMIDINE 200 MCG in NS 48 ML IV PRN ×2 (19:15→21:46)
[2017-08-10] VITALS (19 sets, daily range): BP systolic 100–171; BP diastolic 63–98; PULSE 55–83; RESP 13–21; TEMP 97.9–100.4; O2SAT 83–99
[2017-08-10] MEDS: DEXMEDETOMIDINE 200 MCG in NS 48 ML IV PRN ×3 (00:52→05:20)
[2017-08-10] MEDS: RESP: ALBUTEROL 2.5 MG/IPRATROPIUM 0.5 MG NEB (SCH) INH ×3 (03:54→20:00)
[2017-08-10] MEDS: CHLORHEXIDINE GLUCONATE 2 % 1 PACK (2 CLOTHS) TOP SCH (04:00)
--- NOTE | 2017-08-10 05:47 | RADRPT ---
EXAM DATE/TIME: 08/10/2017 04:18 [facility] COMPARISON: CHEST SINGLE AP, August 08, 2017, 8:22. INDICATIONS : Short of breath. MEDICAL HISTORY : Carcinoma, prostatic. Hypertension SURGICAL HISTORY : Gastric bypass. ENCOUNTER: Subsequent ACUITY: 3 days PAIN SCORE: 0/10 LOCATION: Bilateral chest FINDINGS: A single view of the chest demonstrates diminished lung planes with airspace disease throughout the r ight lung and left lower lobe. Heart borderline enlarged. Endotracheal tube with tip 2 cm above the c hannah. Nasogastric tube with tip in stomach. Osseous structures are intact. CONCLUSION: 1. Airspace disease throughout the right lung and left lower lobe. 2. Endotracheal tube 2 cm above the danny. Ponce Balderas MD on August 10, 2017 at 5:43 Board Certified Radiologist. This report was verified electronically.
[2017-08-10 05:49] LABS: HEMATOCRIT 31.2 % (39.0-51.0); HEMOGLOBIN 9.8 GM/DL (13.0-17.0); MEAN CELL VOLUME 81.6 FL (80.0-100.0); MEAN CORPUSCULAR HEMOGLOBIN 25.7 PG (27.0-34.0); MEAN CORPUSCULAR HGB CONC 31.5 % (32.0-36.0); MEAN PLATELET VOLUME 10.5 FL (7.0-11.0); PLATELET COUNT 89 TH/MM3 (150-450); RED BLOOD COUNT 3.82 MIL/MM3 (4.50-5.90); RED CELL DISTRIBUTION WIDTH 20.4 % (11.6-17.2); WHITE BLOOD COUNT 5.7 TH/MM3 (4.0-11.0)
[2017-08-10] MEDS: HEPARIN SODIUM - SQ 10,000 UNITS/ML VIAL SQ SCH (06:00)
[2017-08-10] MEDS: INSULIN NovoLIN REGULAR SUPPLEMENTAL SCALE SQ SCH ×4 (06:00→18:00)
[2017-08-10 06:12] LABS: ALBUMIN 2.4 GM/DL (3.4-5.0); BICARBONATE 23.4 MEQ/L (21.0-32.0); BLOOD UREA NITROGEN 15 MG/DL (7-18); CALCIUM 8.1 MG/DL (8.5-10.1); CHLORIDE 112 MEQ/L (98-107); GLUCOSE,RANDOM 141 MG/DL (74-106); MAGNESIUM 2.1 MG/DL (1.5-2.5); SODIUM (NA) 141 MEQ/L (136-145)
[2017-08-10 06:13] LABS: AST (GOT) 98 U/L (15-37); CREATININE 0.79 MG/DL (0.60-1.30); GLOMERULAR FILTRATION RATE 99 ML/MIN (>89)
[2017-08-10 06:16] LABS: ALKALINE PHOSPHATASE 82 U/L (45-117); ALT (GPT) 92 U/L (12-78); TOTAL BILIRUBIN ADULT 0.6 MG/DL (0.2-1.0); TOTAL PROTEIN 6.1 GM/DL (6.4-8.2)
[2017-08-10] MEDS: hydrALAZINE HCL 20 MG/ML VIAL IV PUSH PRN ×2 (06:34→12:56)
[2017-08-10] MEDS: DEXT 5%-NACL 0.9% 1000 ML INJ 1,000 ML IV SCH (06:36)
[2017-08-10] MEDS ORDERED: POTASSIUM CHLORIDE INJ 30 MEQ in SODIUM CHLORIDE 0.9% INJ 100 ML IV-CENTRAL ONE (07:30)
[2017-08-10] MEDS ORDERED: FUROSEMIDE 40 MG/4 ML VIAL IV PUSH ONE ×3 (07:30→14:45)
--- NOTE | 2017-08-10 07:36 | HHI.CCPN ---
Subjective Remarks/Hospital Course Hospital Course: This is a 62-year-old male who presented by private vehicle for acute altered mental status. Per ER reports, he was riding with his through [place] when he passed out. She immediately turned and drove to the [facility] emergency department where in the ER he was found to be in PEA arrest. The states that was approximately 3-5 minutes of driving before she arrived to the ER. After ACLS, ROSC was obtained. A poor neurologic exam and was emergently transferred to [facility]. I evaluated the patient upon arrival to the CVICU. He had pupils that were 6 mm, sluggishly reactive, deviated to the left. He was extensor posturing in the upper extremities and flexor posturing in the lowers. He had a head CT that was negative for acute intracranial hemorrhage. There was some report from the emergency department that at least one rhythm during ACLS was ventricular fibrillation, suggesting a possible ischemic component to this cardiac arrest. I had a discussion with Dr. Boateng with cardiology and we both agree the patient would be a good hypothermic candidate. No additional information is available from the patient due to his clinical condition. ROS unobtainable. subjective: 08/07: hypothermic today. bradycardic, but off pressors. remains critically ill. troponin significantly elevated, but slightly downtrended. 08/08: Patient is in the rewarming phase. Pupils remain 2 mm sluggish. Will be completing rewarming by known, I will repeat neuro exam at this time. Chest x- ray pending 08/09: Rewarming completed yesterday. Remains encephalopathy. Moving all extremities spontaneously. No tracking did not follow commands. Asynchronous with the vent when sedation is held, start Precedex to facilitate neuro exam 08/10: Improving neuro exam. Follows commands in all 4 extremities, but responds slowly. MRI negative for anoxic brain injury. EEG showed encephalopathy. Initiate CPAP trials Objective Vital Signs Date Time Temp Pulse Resp B/P (MAP) Pulse Ox O2 Delivery O2 Flow Rate FiO2 08/10/17 04:00 98 Mechanical Ventilator 40 08/10/17 04:00 99.9 61 16 146/93 (110) 171/94 (119) 08/06/17 12:10 2.00 Intake and Output 08/10/17 08/10/17 08/11/17 08:00 16:00 00:00 Intake Total 2412 ml Output Total 310 ml Balance 2102 ml Result Diagram: 08/10/1752408/10/17524 Objective Remarks GENERAL: Middle-aged male, lying in bed, ischial spontaneously open HEENT: Normocephalic. Atraumatic. Pupils are 2 mm, sluggishly reactive. NECK: Trachea is midline. There is no JVD. CHEST: Equal chest rise. PRVC. 35% FiO2. CARDIOVASCULAR: NSR, regular rhythm. No murmurs ABDOMEN: Soft, nontender, nondistended. MUSCULOSKELETAL: Pulses 2+. No peripheral edema. Peripheral perfusion is improved NEUROLOGICAL: Intubated sedated with Precedex. Pupils as above. Spontaneously moves upper and lower extremities, ischial spontaneously open. Follows commands all 4 extremities but with the a delay A/P Assessment and Plan Assessment: 62-year-old male with out of hospital cardiac arrest and at least one rhythm strip suggesting ventricular fibrillation or a coronary ischemia component to his arrest. Given age and lack of medical comorbidities he underwent therapeutic hypothermia. Cardiology following. Critically ill. Plan by systems: Neurologic: Hypoxic ischemic encephalopathy Completed hypothermic protocol. Improving neuro exam, GCS 10T Precedex to facilitate neuro exam and for weaning Discontinue Keppra, EEG shows encephalopathy no seizures MRI negative for any significant anoxic brain injury Respiratory: Acute hypoxic hypercarbic respiratory failure Vent bundle, Head of bed 30, Nebs Wean FiO2 for goal SPO2 greater than 90% CPAP trial and assess for possible extubation Sputum culture staph aureus Cardiovascular: Status post out of hospital cardiac arrest Ventricular fibrillation ACS Serial troponins peaked at 29. Cardiology Dr. Boateng. Good neurological recovery will need cardiac catheterization heparin drip-changed to sq heparin Continue aspirin, add Lipitor (monitor liver enzymes) Add Coreg 3.125 mg every 12 IV fluid 40 mg 1 Renal: Acute kidney injury keep Rizvi catheter Strict I/Os Creatinine has normalized FEN/GI: Tube feeds with Jevity DC IV fluids ICU electrolyte protocol Heme/ID: Daily CBC Sputum culture growing staph aureus. Placed on Rocephin 2 g every 24 hours Chest x-ray no acute findings Endocrine: Hyperglycemia of critical illness -- SSI, medium scale, every 6 Prophylaxis: GI Prophylaxis Pepcid IV DVT Prophylaxis -- SCDs Sq heparin Lines: Right femoral triple lumen catheter 08/06-DCd Left femoral code cool catheter 08/06-DC today Left femoral arterial line 3/24-DC 08/09 [place] Dispo: remain in CVICU. critically ill Level 3 Elizabeth Curiel MD Aug 10, 2017 07:36
[2017-08-10] MEDS: CHLORHEXIDINE 0.12% (ORAL KIT) 15 ML CUP MT SCH ×2 (09:02→20:00)
[2017-08-10] MEDS: DOCUSATE SODIUM 50 MG/SENNA 8.6 MG TAB PO SCH ×2 (09:08→21:58)
[2017-08-10] MEDS: cefTRIAXone INJ 2,000 MG in SODIUM CHLORIDE 0.9% INJ 100 ML IV SCH (09:08)
[2017-08-10] MEDS: CARVEDILOL 3.125 MG TAB PO SCH ×2 (09:09→21:58)
[2017-08-10] MEDS: FAMOTIDINE 20 MG/2 ML VIAL IV PUSH SCH (09:09)
[2017-08-10] MEDS: SODIUM CHLORIDE 0.9% FLUSH 10 ML FLUSH IV FLUSH SCH ×2 (09:09→21:58)
[2017-08-10] MEDS ORDERED: RESP: ALBUTEROL 2.5 MG/IPRATROPIUM 0.5 MG NEB (SCH) INH ×2 (10:00)
[2017-08-10 12:40] LABS: CHOLESTEROL/ HDL RATIO 2.25 RATIO
[2017-08-10] MEDS: LABETALOL HCL 100 MG/20 ML VIAL IV PUSH PRN (12:56)
[2017-08-10] MEDS ORDERED: DEXAMETHASONE SOD PHOS 20 MG/5 ML VIAL ONE (13:15)
[2017-08-10] MEDS ORDERED: RESP: RACEPINEPHRINE 2.25% 0.5 ML NEB ONE (13:16)
[2017-08-10] MEDS: POTASSIUM CHLORIDE 25 MEQ EFFERVESCENT TAB PO SCH (14:45)
[2017-08-10 15:26] LABS: HEMATOCRIT 31.9 % (39.0-51.0); HEMOGLOBIN 10.2 GM/DL (13.0-17.0); MEAN CELL VOLUME 80.2 FL (80.0-100.0); MEAN CORPUSCULAR HEMOGLOBIN 25.7 PG (27.0-34.0); MEAN PLATELET VOLUME 10.1 FL (7.0-11.0); PLATELET COUNT 111 TH/MM3 (150-450); RED BLOOD COUNT 3.98 MIL/MM3 (4.50-5.90); RED CELL DISTRIBUTION WIDTH 20.9 % (11.6-17.2); WHITE BLOOD COUNT 7.3 TH/MM3 (4.0-11.0)
[2017-08-10 15:42] LABS: PROTHROMBIN TIME - PATIENT 9.8 SEC (9.8-11.6)
[2017-08-10] MEDS: HEPARIN INJ 25,000 UNITS in SODIUM CHLOR 0.9% 250 ML INJ 250 ML IV PRN (15:46)
[2017-08-10] MEDS: FUROSEMIDE 40 MG/4 ML VIAL IV PUSH SCH (18:10)
[2017-08-10] MEDS ORDERED: HEPARIN SODIUM - IV 10,000 UNITS/10 ML VIAL IV PUSH PRN (19:15)
--- NOTE | 2017-08-10 19:31 | PD.CARD.PN ---
Subjective Subjective Remarks Extubated Able to follow commands Currently on Bipap secondary to fluid overload state, attempting to diurese Objective Medications Current Medications Medications (Trade) Dose Ordered Sig/Rogerio Route Start Time Stop Time Status Last Admin (Brethine Inj) 1 mg UNSCH PRN SQ 08/06/17 09:15 (Trandate Inj) 20 mg Q15M PRN IV PUSH 08/06/17 16:45 08/10/17 12:56 (Apresoline Inj) 10 mg Q30M PRN IV PUSH 08/06/17 16:45 08/10/17 12:56 Potassium Chloride 100 ml @ 50 mls/hr Q2H PRN IV 08/06/17 16:45 Potassium Chloride 100 ml @ 50 mls/hr Q2H PRN IV 08/06/17 16:45 (K-Lyte Cl Eff) 50 meq UNSCH PRN PO 08/06/17 16:45 Potassium Chloride 100 ml @ 25 mls/hr UNSCH PRN IV 08/06/17 16:45 08/07/17 00:24 Potassium Chloride 100 ml @ 50 mls/hr Q2H PRN IV 08/06/17 16:45 08/08/17 05:39 Magnesium Sulfate 4 gm/Sodium Chloride 100 ml @ 50 mls/hr UNSCH PRN IV 08/06/17 16:45 (Mag-Ox) 800 mg UNSCH PRN PO 08/06/17 16:45 Magnesium Sulfate 2 gm/Sodium Chloride 100 ml @ 50 mls/hr UNSCH PRN IV 08/06/17 16:45 08/07/17 06:06 (K-Phos) 2,000 mg Q4H PRN PO 08/06/17 16:45 Sodium Phosphate 30 mmol/Sodium Chloride 250 ml @ 42 mls/hr UNSCH PRN IV 08/06/17 16:45 (K-Phos) 2,000 mg UNSCH PRN PO/TUBE 08/06/17 16:45 Potassium Phosphate 30 mmol/ Sodium Chloride 260 ml @ 42 mls/hr UNSCH PRN IV 08/06/17 16:45 (Peridex 0.12% Liq) 15 ml BID@08,20 MT 08/06/17 20:00 08/10/17 09:02 (D50w (Vial) Inj) 25 ml UNSCH PRN IV PUSH 08/06/17 16:45 (NovoLIN R SUPPLEMENTAL SCALE) 1 Q6HR SQ 08/06/17 18:00 08/06/17 22:51 (Duoneb Neb) 1 ampule Q2HR NEB PRN INH 08/06/17 16:45 (Zofran Inj) 4 mg Q6H PRN IV PUSH 08/06/17 16:45 Miscellaneous Information 1 Q361D XX 08/06/17 16:45 (Chlorhexidine 2% Cloth) 3 pack Taper DAILY@04 TOP 08/07/17 04:00 08/03/18 03:59 08/10/17 04:00 (Chlorhexidine 2% Cloth) 3 pack UNSCH PRN TOP 08/06/17 16:45 (Rhianna-Colace) 1 tab BID PO 08/06/17 21:00 08/10/17 09:08 (Milk Of Magnapple Liq) 30 ml Q12H PRN PO 08/06/17 16:45 (Lacrilube Opht Oint) 1 applic Q4H PRN EACH EYE 08/06/17 16:45 08/07/17 23:51 (NS Flush) 2 ml BID IV FLUSH 08/06/17 21:00 08/10/17 09:09 (NS Flush) 2 ml UNSCH PRN IV FLUSH 08/06/17 16:45 Miscellaneous Information 0 ml @ 0 mls/hr UNSCH IV 08/06/17 16:45 Dexmedetomidine HCl 200 mcg/ Sodium Chloride 50 ml @ 5.75 mls/hr TITRATE PRN IV 08/09/17 13:00 08/10/17 05:20 (Coreg) 3.125 mg Q12HR PO 08/10/17 09:00 08/10/17 09:09 (Lipitor) 40 mg HS PO 08/10/17 21:00 Ceftriaxone Sodium 2000 mg/ Sodium Chloride 100 ml @ 200 mls/hr Q24H IV 08/10/17 09:00 08/10/17 09:08 (Pepcid) 20 mg BID PO 08/10/17 21:00 (Heparin Inj) 5,000 units UNSCH PRN IV PUSH 08/10/17 19:15 (Heparin Inj) 2,500 units UNSCH PRN IV PUSH 08/10/17 19:15 Heparin Sodium (Porcine) 57434 units/Sodium Chloride 252.5 ml @ 10.1 mls/hr TITRATE PRN IV 08/10/17 15:00 08/10/17 15:46 (Duoneb Neb) 1 ampule Q4HR NEB INH 08/10/17 16:00 08/10/17 16:20 (Lasix Inj) 40 mg BID@09,18 IV PUSH 08/10/17 18:00 08/10/17 18:10 (K-Lyte Cl Eff) 25 meq DAILY PO 08/10/17 14:45 Vital Signs / I&O Vital Signs Date Time Temp Pulse Resp B/P (MAP) Pulse Ox O2 Delivery O2 Flow Rate FiO2 08/10/17 16:00 99 40 08/10/17 15:30 Bi-Pap 08/10/17 15:25 98.9 63 18 100/63 (75) 94 118/65 (82) 08/10/17 15:00 61 08/10/17 13:20 99 85 08/10/17 13:01 99 Non-Rebreather 15.00 08/10/17 12:50 83 Nasal Cannula 4 08/10/17 12:00 40 08/10/17 11:00 99.1 55 18 140/91 (107) 94 156/80 (105) 08/10/17 11:00 55 08/10/17 11:00 98 Mechanical Ventilator 35 08/10/17 10:44 98 35 08/10/17 08:00 40 08/10/17 07:38 90 35 08/10/17 07:00 Nasal Cannula 35 08/10/17 07:00 60 08/10/17 07:00 98 Mechanical Ventilator 40 08/10/17 07:00 100.4 60 21 148/98 (115) 94 170/88 (115) 08/10/17 04:00 98 Mechanical Ventilator 40 08/10/17 04:00 40 08/10/17 04:00 99.9 61 16 146/93 (110) 98 171/94 (119) 08/10/17 03:54 99 40 08/10/17 03:30 83 08/10/17 00:00 57 08/10/17 00:00 99.1 61 16 151/93 (112) 99 163/86 (111) 08/10/17 00:00 45 08/09/17 23:00 98 Mechanical Ventilator 45 08/09/17 20:01 95 45 08/09/17 20:00 45 08/09/17 20:00 98.0 59 16 117/82 (94) 93 134/74 (94) 08/09/17 19:30 93 Mechanical Ventilator 45 I/O 08/09/17 08/09/17 08/09/17 08/10/17 08/10/17 08/10/17 07:00 15:00 23:00 07:00 15:00 23:00 Intake Total 3465 ml 575 ml 2412 ml 693 ml Output Total 375 ml 395 ml 310 ml 3250 ml Balance 3090 ml 180 ml 2102 ml -2557 ml Intake Oral 0 ml 0 ml IV Total 3358 ml 230 ml 1593 ml 693 ml Tube Feeding 107 ml 345 ml 689 ml Other 130 ml Output Urine Total 375 ml 375 ml 310 ml 3250 ml Gastric Drainage Total 20 ml # Bowel Movements 0 0 0 Physical Exam GENERAL: NAD, on Bipap SKIN: Warm/dry HEAD: Atraumatic. Normocephalic. EYES: Pupils equal and round. No scleral icterus. No injection or drainage. ENT: No nasal bleeding or discharge. Mucous membranes pink and moist. NECK: Trachea midline. No JVD. CARDIOVASCULAR: RRR RESPIRATORY: No accessory muscle use. Clear to auscultation. Breath sounds equal bilaterally. GASTROINTESTINAL: Abdomen soft, non-tender, nondistended. Hepatic and splenic margins not palpable. MUSCULOSKELETAL: Extremities without clubbing, cyanosis, or edema. No obvious deformities. NEUROLOGICAL: No focal deficits noted Laboratory Laboratory Tests Test 08/10/17 05:25 08/10/17 14:15 08/10/17 14:30 White Blood Count 5.7 TH/MM3 7.3 TH/MM3 Red Blood Count 3.82 MIL/MM3 3.98 MIL/MM3 Hemoglobin 9.8 GM/DL 10.2 GM/DL Hematocrit 31.2 % 31.9 % Mean Corpuscular Volume 81.6 FL 80.2 FL Mean Corpuscular Hemoglobin 25.7 PG 25.7 PG Mean Corpuscular Hemoglobin Concent 31.5 % 32.0 % Red Cell Distribution Width 20.4 % 20.9 % Platelet Count 89 TH/MM3 111 TH/MM3 Mean Platelet Volume 10.5 FL 10.1 FL Blood Urea Nitrogen 15 MG/DL Creatinine 0.79 MG/DL Random Glucose 141 MG/DL Total Protein 6.1 GM/DL Albumin 2.4 GM/DL Calcium Level 8.1 MG/DL Magnesium Level 2.1 MG/DL Alkaline Phosphatase 82 U/L Aspartate Amino Transf (AST/SGOT) 98 U/L Alanine Aminotransferase (ALT/SGPT) 92 U/L Total Bilirubin 0.6 MG/DL Sodium Level 141 MEQ/L Potassium Level 3.9 MEQ/L Chloride Level 112 MEQ/L Carbon Dioxide Level 23.4 MEQ/L Anion Gap 6 MEQ/L Estimat Glomerular Filtration Rate 99 ML/MIN Triglycerides Level 73 MG/DL Cholesterol Level 97 MG/DL LDL Cholesterol 39 MG/DL HDL Cholesterol 43.0 MG/DL Cholesterol/HDL Ratio 2.25 RATIO Blood Gas Puncture Site ART LINE Blood Gas Patient Temperature 98.6 Blood Gas HCO3 22 mmol/L Blood Gas Base Excess -1.8 mmol/L Blood Gas Oxygen Saturation 97 % Arterial Blood pH 7.43 Arterial Blood Partial Pressure CO2 34 mmHg Arterial Blood Partial Pressure O2 170 mmHg Arterial Blood Oxygen Content 15.3 Vol % Arterial Blood Carboxyhemoglobin 0.8 % Arterial Blood Methemoglobin 1.4 % Blood Gas Hemoglobin 11.0 G/DL Oxygen Delivery Device NPPV Blood Gas Ventilator Setting PS 10/PEEP 5 Blood Gas Inspired Oxygen 60 % Prothrombin Time 9.8 SEC Prothromb Time International Ratio 1.0 RATIO Activated Partial Thromboplast Time 24.3 SEC Imaging Last 24 hours Impressions Chest X-Ray 08/10/17 0600 Signed Impressions: Service Date/Time: Thursday, August 10, 2017 04:18 - CONCLUSION: 1. Airspace disease throughout the right lung and left lower lobe. 2. Endotracheal tube 2 cm above the danny. Ponce Balderas MD Assessment and Plan Problem List: (1) Cardiopulmonary arrest with successful resuscitation ICD Codes: I46.9 - Cardiac arrest, cause unspecified Status: Acute (2) NSTEMI (non-ST elevated myocardial infarction) ICD Codes: I21.4 - Non-ST elevation (NSTEMI) myocardial infarction (3) On mechanically assisted ventilation ICD Codes: Z99.11 - Dependence on respirator [ventilator] status Assessment and Plan 1) Cardiac arrest, PEA on arrival deteriorating into Vfib requiring defibrillation 2) NSTEMI Probable Type 1 over Type 2 3) EF 55-60% 4) Hypothermia protocol for 24 hours Now rewarmed 5) Consideration of cardiac catheterization tomorrow if stable Will have to lay relatively flat 6) Con't diuresis Aleks Boateng DO Aug 10, 2017 19:31
[2017-08-10] MEDS: FAMOTIDINE 20 MG TAB PO SCH (21:58)
[2017-08-10] MEDS: ATORVASTATIN 40 MG TAB PO SCH (21:58)
[2017-08-10] MEDS: HEPARIN SODIUM - IV 10,000 UNITS/10 ML VIAL IV PUSH PRN (22:07)
[2017-08-11] VITALS (14 sets, daily range): BP systolic 132–166; BP diastolic 64–108; PULSE 68–101; RESP 16–21; TEMP 97.6–98.5; O2SAT 93–98
[2017-08-11] MEDS: RESP: ALBUTEROL 2.5 MG/IPRATROPIUM 0.5 MG NEB (SCH) INH ×7 (00:28→23:47)
[2017-08-11] MEDS: CHLORHEXIDINE GLUCONATE 2 % 1 PACK (2 CLOTHS) TOP SCH (04:00)
[2017-08-11] MEDS: LABETALOL HCL 100 MG/20 ML VIAL IV PUSH PRN (04:10)
--- NOTE | 2017-08-11 05:04 | RADRPT ---
EXAM DATE/TIME: 08/11/2017 03:51 [place] COMPARISON: CHEST SINGLE AP, August 10, 2017, 4:18. INDICATIONS : Shortness of breath, possible pulmonary disease. MEDICAL HISTORY : Carcinoma, prostatic. Hypertension SURGICAL HISTORY : Gastric bypass. ENCOUNTER: Subsequent ACUITY: 4 - 6 days PAIN SCORE: Non-responsive. LOCATION: Bilateral chest FINDINGS: A single view of the chest demonstrates no minimal hazy density over the right lung which has improve d. Endotracheal tube removed. Left lung appears clear. The cardiomediastinal contours are unremarkabl e. Osseous structures are intact. CONCLUSION: Minimal hazy density in right lung has improved. Ponce Balderas MD on August 11, 2017 at 5:01 Board Certified Radiologist. This report was verified electronically.
[2017-08-11 05:17] LABS: AUTOMATED NEUTROPHIL # 5.8 TH/MM3 (1.8-7.7); BASOPHIL % 0.2 % (0.0-2.0); HEMOGLOBIN 10.3 GM/DL (13.0-17.0); LYMPH % 22.2 % (9.0-44.0); LYMPHOCYTE # 2.2 TH/MM3 (1.0-4.8); MEAN CELL VOLUME 80.5 FL (80.0-100.0); MEAN CORPUSCULAR HEMOGLOBIN 25.8 PG (27.0-34.0); MEAN PLATELET VOLUME 9.9 FL (7.0-11.0); MONO % 17.6 % (0.0-8.0); MONOCYTE # 1.7 TH/MM3 (0-0.9); PLATELET COUNT 142 TH/MM3 (150-450); RED BLOOD COUNT 3.98 MIL/MM3 (4.50-5.90); RED CELL DISTRIBUTION WIDTH 20.7 % (11.6-17.2); WHITE BLOOD COUNT 9.7 TH/MM3 (4.0-11.0)
[2017-08-11] MEDS: HEPARIN SODIUM - IV 10,000 UNITS/10 ML VIAL IV PUSH PRN (05:31)
[2017-08-11] MEDS: hydrALAZINE HCL 20 MG/ML VIAL IV PUSH PRN ×2 (05:31→15:03)
[2017-08-11 05:36] LABS: ALBUMIN 2.7 GM/DL (3.4-5.0); ALKALINE PHOSPHATASE 85 U/L (45-117); ALT (GPT) 74 U/L (12-78); AST (GOT) 65 U/L (15-37); BLOOD UREA NITROGEN 15 MG/DL (7-18); CHLORIDE 108 MEQ/L (98-107); CREATININE 0.86 MG/DL (0.60-1.30); GLOMERULAR FILTRATION RATE 90 ML/MIN (>89); GLUCOSE,RANDOM 80 MG/DL (74-106); MAGNESIUM 1.9 MG/DL (1.5-2.5); SODIUM (NA) 143 MEQ/L (136-145); TOTAL BILIRUBIN ADULT 0.7 MG/DL (0.2-1.0); TOTAL PROTEIN 6.8 GM/DL (6.4-8.2)
[2017-08-11] MEDS: INSULIN NovoLIN REGULAR SUPPLEMENTAL SCALE SQ SCH ×4 (06:00→18:00)
[2017-08-11 07:39] LABS: BANDS 2 % (0-6); LYMPHOCYTES 13 % (9-44); MONOCYTES 14 % (0-8); MYELOCYTES 1 % (0-0); NEUTROPHIL # MANUAL DIFF 7.1 TH/MM3 (1.8-7.7); POLYS (SEG NEUTROPHILS) 70 % (16-70)
[2017-08-11] MEDS: CHLORHEXIDINE 0.12% (ORAL KIT) 15 ML CUP MT SCH ×2 (08:00→20:00)
[2017-08-11] MEDS ORDERED: IOHEXOL 350 MG/ML 50 ML BTL (for Cath Lab) OTHER ONE (08:22)
[2017-08-11] MEDS: HEPARIN INJ 25,000 UNITS in SODIUM CHLOR 0.9% 250 ML INJ 250 ML IV PRN (08:35)
[2017-08-11] MEDS: DOCUSATE SODIUM 50 MG/SENNA 8.6 MG TAB PO SCH ×2 (08:54→21:00)
[2017-08-11] MEDS: FAMOTIDINE 20 MG TAB PO SCH ×2 (08:55→21:00)
[2017-08-11] MEDS: POTASSIUM CHLORIDE 25 MEQ EFFERVESCENT TAB PO SCH (08:55)
[2017-08-11] MEDS: FUROSEMIDE 40 MG/4 ML VIAL IV PUSH SCH ×2 (09:00→18:00)
[2017-08-11] MEDS: SODIUM CHLORIDE 0.9% FLUSH 10 ML FLUSH IV FLUSH SCH ×2 (09:00→21:00)
[2017-08-11] MEDS: cefTRIAXone INJ 2,000 MG in SODIUM CHLORIDE 0.9% INJ 100 ML IV SCH (09:00)
[2017-08-11] MEDS: CARVEDILOL 3.125 MG TAB PO SCH ×2 (09:01→21:00)
--- NOTE | 2017-08-11 09:48 | HHI.CCPN ---
Subjective Remarks/Hospital Course Hospital Course: This is a 62-year-old male who presented by private vehicle for acute altered mental status. Per ER reports, he was riding with his through [place] when he passed out. She immediately turned and drove to the [facility] emergency department where in the ER he was found to be in PEA arrest. The states that was approximately 3-5 minutes of driving before she arrived to the ER. After ACLS, ROSC was obtained. A poor neurologic exam and was emergently transferred to [facility]. I evaluated the patient upon arrival to the CVICU. He had pupils that were 6 mm, sluggishly reactive, deviated to the left. He was extensor posturing in the upper extremities and flexor posturing in the lowers. He had a head CT that was negative for acute intracranial hemorrhage. There was some report from the emergency department that at least one rhythm during ACLS was ventricular fibrillation, suggesting a possible ischemic component to this cardiac arrest. I had a discussion with Dr. Boateng with cardiology and we both agree the patient would be a good hypothermic candidate. No additional information is available from the patient due to his clinical condition. ROS unobtainable. subjective: 08/07: hypothermic today. bradycardic, but off pressors. remains critically ill. troponin significantly elevated, but slightly downtrended. 08/08: Patient is in the rewarming phase. Pupils remain 2 mm sluggish. Will be completing rewarming by known, I will repeat neuro exam at this time. Chest x- ray pending 08/09: Rewarming completed yesterday. Remains encephalopathy. Moving all extremities spontaneously. No tracking did not follow commands. Asynchronous with the vent when sedation is held, start Precedex to facilitate neuro exam 08/10: Improving neuro exam. Follows commands in all 4 extremities, but responds slowly. MRI negative for anoxic brain injury. EEG showed encephalopathy. Initiate CPAP trials 08/11: continues to improve hemodynamically. on NC o2. still clinically appears volume overloaded. +jvd. NPO for LHC today with Dr. Boateng. continue forced diuresis. still delirious with mild encephalopathy. Objective Vital Signs Date Time Temp Pulse Resp B/P (MAP) Pulse Ox O2 Delivery O2 Flow Rate FiO2 08/11/17 07:31 98.5 88 21 153/70 (97) 95 148/94 (112) 08/11/17 07:30 Nasal Cannula 3.00 08/10/17 19:20 40 Intake and Output 08/11/17 08/11/17 08/12/17 08:00 16:00 00:00 Intake Total 279 ml 250 ml Output Total 1935 ml Balance -1656 ml 250 ml Result Diagram: 08/11/17 0400 08/11/17 0400 Other Results Laboratory Tests Test 08/10/17 14:15 Blood Gas Puncture Site ART LINE Blood Gas Patient Temperature 98.6 Blood Gas HCO3 22 mmol/L (22-26) Blood Gas Base Excess -1.8 mmol/L (-2-2) Blood Gas Oxygen Saturation 97 % (90-100) Arterial Blood pH 7.43 (7.380-7.420) Arterial Blood Partial Pressure CO2 34 mmHg (38-42) Arterial Blood Partial Pressure O2 170 mmHg (61-120) Arterial Blood Oxygen Content 15.3 Vol % (12.0-20.0) Arterial Blood Carboxyhemoglobin 0.8 % (0-4) Arterial Blood Methemoglobin 1.4 % (0-2) Blood Gas Hemoglobin 11.0 G/DL (12.0-16.0) Oxygen Delivery Device NPPV Blood Gas Ventilator Setting PS 10/PEEP 5 Blood Gas Inspired Oxygen 60 % Objective Remarks GENERAL: Middle-aged male, lying in bed, awake, confused. HEENT: Normocephalic. Atraumatic. Pupils are 3 mm, reactive. NECK: Trachea is midline. mild elevation of JVD. CHEST: Equal chest rise. nc o2. CARDIOVASCULAR: NSR, regular rhythm. ABDOMEN: Soft, nontender, nondistended. no guarding. MUSCULOSKELETAL: Pulses 2+. 1+ peripheral edema. Peripheral perfusion is improved. right groin art line in place, clean and dry. dressing intact. NEUROLOGICAL: RASS -1. CAM+. follows commands. oriented to person. confused. A/P Assessment and Plan Assessment: 62-year-old male with out of hospital cardiac arrest and at least one rhythm strip suggesting ventricular fibrillation or a coronary ischemia component to his arrest. Now extubated with improving neuro exam, although mild encephalopathy persists and confused. to [facility] today. need to maximize non- pharmacologic delirium prevention with day/night re-orientation. will add melatonin to promote sleep at night. avoid benzodiazepines. remains highly complex and still volume overloaded with evidence of pulmonary edema superimposed on aspiration pneumonia. 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 Completed hypothermic protocol. Improving neuro exam, GCS 14. MRI negative for any significant anoxic brain injury continue frequent neuro checks add melatonin for sleep good day/night reorientation Respiratory: Acute hypoxic hypercarbic respiratory failure- improving. Pulmonary edema Wean oxygen for goal spo2 > 90% Sputum culture staph aureus aggressive pulmonary toilet. continue forced diuresis. Cardiovascular: Status post out of hospital cardiac arrest Ventricular fibrillation ACS Serial troponins peaked at 29. Cardiology Dr. Boateng. Good neurological recovery will need cardiac catheterization Continue aspirin, Lipitor (monitor liver enzymes) Add Coreg 3.125 mg every 12 Renal: Acute kidney injury keep Rizvi catheter Strict I/Os Creatinine has normalized forced diuresis FEN/GI: npo for cath. speech eval after this. ICU electrolyte protocol Heme/ID: Daily CBC Sputum culture growing staph aureus. Placed on Rocephin 2 g every 24 hours: plan for full 7 day course for community acquired aspiration. anticipated stop date 08/15. Chest x-ray no acute findings Endocrine: Hyperglycemia of critical illness -- SSI, medium scale, every 6 Prophylaxis: GI Prophylaxis Pepcid IV DVT Prophylaxis -- SCDs Sq heparin Lines: Rizvi Dispo: remain in CVICU. critically ill Luis Juarez MD Aug 11, 2017 09:48
[2017-08-11] MEDS ORDERED: HEPARIN-NS/PF FLUSH BAG 2,000 ML IV FLUSH ONE (18:25)
[2017-08-11] MEDS ORDERED: VERAPAMIL HCL 5 MG/2 ML VIAL ONE (18:25)
[2017-08-11] MEDS ORDERED: HEPARIN SODIUM - IV 10,000 UNITS/10 ML VIAL ONE (18:25)
[2017-08-11] MEDS ORDERED: NITROGLYCERIN INJ 5 ML ONE (18:25)
--- NOTE | 2017-08-11 19:13 | CATHPROC ---
[facility] HIS Report Study Information Study Number Admission Scheduled Start Study Start [id number] Aug 06 2017 11:10AM 08/10/2017 Aug 11 2017 6:32PM [facility] Service Cardiac Catheterization Admit Source Facility Department Other [facility] - Cnc Router Operator Physician and Clinical Staff Initial Aleks Nicolas Body Maker Machine SetterZuleima Segundo RN Body Maker Machine SetterChantel Mauricio,CHRIST Recorder Hamzah POLO, Reji StewartRT(R) Procedures Performed Procedure Location (Site) Vessel Name Coronary Angiograms LCA Left Coronary Coronary Angiograms RCA Right Coronary L Heart Cath Equipment Time Employee Relations Administrator Description Size Mfg Part Number Used/Scraped TRANSDUCER, TRUWAVE [id number] 18:42 OATES SERRANO * Used W/STOCKCOCK *[id number] 18:42 Antria PACK, CCL CUSTOM * Used *[id number] 18:42 Antria SUPPORT, ARTERIAL ADULT [id number] *[id number] Used [id number] 18:51 MEDTRONIC JL 3.5 DXTERITY CATHETER FR 5 Used *[id number] 18:42 MEDTRONIC JR 4.0 DXTERITY CATHETER FR 5 Used *[id number] BAND, RADIAL COMPRESSION TR [id number] 18:57 MERIT [employer]ICAL 24CM Used SHORT 24 *[id number] 18:42 Real Estate Direct MEDICAL WIRE, EXCHANGE 260CM 3MMJ 260CM Used *[id number] 18:42 NAMIC MANIFOLD, 4 PORT * Used *[id number] 18:42 NYCOMED OMNIPAQUE, 350 MG, 150ML 150ML [id number] Used [id number] 18:42 HEIN MEDICAL BLANKET,WARM AIR CCL * Used *[id number] SHEATH, FR6 TRANSRADIAL [id number] 18:42 TERQwiki MEDICAL FR 6 Used SLENDER 10CM *[id number] Equipment Model, Serial, Lot Number and Expiration Data Description Model Number Serial Number Lot Number Expiration Date BAND, RADIAL COMPRESSION TR [id number] 06-15-2020 SHORT 24 JR 4.0 DXTERITY CATHETER [id number] 02-24-2020 History: Current Medications Medication Dosage/Unit Route Frequency Last Date/Time Taken Statins (any) Beta Eve History: Allergies Allergy Reaction Morphine History: Risk Factors Family History of Hypertension Dyslipidemia Previous SC Previous Heart Failure Premature CAD Yes Yes No No No Prior Valve Prior PCI Prior CABG Surgery No No No Cerebrovascular Peripheral Artery Chronic Lung On Dialysis Diabetes Disease Disease Disease No No No No No History: Stress Tests Stress or Imaging Studies Performed No Medication Medication Total Dose (Bolus/Oral) Medication Total Dosage/Unit 1% XYLOCAINE 5 mL RADIAL COCKTAIL 5 mL (Bolus) Medications (Bolus/Oral) Medication Time Given Dosage/Unit Administered By Reason 1% XYLOCAINE 08/11/2017 6:41:50 PM 5 mL Aleks Boateng 5 mL 1% XYLOCAINE given in lab by Aleks Boateng in Right Radial via Subcutaneous. Ntg 200mcg Verapamil 2.5mg Heparin RADIAL COCKTAIL 08/11/2017 6:42:49 PM 5 mL (Bolus) Aleks Boateng 3000U 5 mL (Bolus) RADIAL COCKTAIL given in lab by Aleks Boateng via Radial. Using [Solution Name]. Nathaniel munroeon: Ntg 200mcg Verapamil 2.5mg Heparin 3000U. Initial Case Assessment Cardiovascular HR NIBP Chest Pain 86 126/80 0 Edema Present Skin color Skin None Normal Warm Dry Circulatory - Right Pulses Femoral Radial 2 1 Scale (0,1,2,3,4,d) Circulatory - Left Pulses Femoral Radial 2 1 Scale (0,1,2,3,4,d) Neurological State Alert Moves all extremities Final Case Assessment Cardiovascular HR NIBP Chest Pain 87 135/79 0 Edema Present Skin color Skin None Normal Warm Dry Neurological State Alert Moves all extremities Respiration - General Respiration Rate SpO2 (%) (B/min) 16 94 Chronological Log Time Study Chronological Log 18:20:40 Patient arrived via Bed. 18:21:12 Patient Name, D.O.B, / Armband Verified By R.N. 18:21:23 Consent signed by the physician and the patient and verified by the Cnc Router Operator staff. Vitals capture started with the following parameters, Patient=Adult, Interval=5 min, Initial Pr hswrpr=866 mmHg, 18:31:59 Deflation Rate=5 mmHg, Cuff placed on Unknown 18:32:30 Pre-op and post- op instructions given; patient acknowledges understanding of instructions. 18:32:36 Allens test performed on the left radial and ulnar artery. 18:32:39 HR=94 bpm, HIMT=680/84 mmhg, SpO2=94.0 %, Resp=13 B/min 18:32:48 Patient has been NPO for More than 6Hrs. 18:33:00 Skin Breakdown- 18:33:33 Patient Warmer Placed on the Table. 18:33:41 A # 18 IV was noted in the Forearm (left). Grade = 0 18:33:56 A # 20 IV was noted in the Forearm (left). Grade = 0 18:34:09 A # 20 IV was noted in the Forearm (right). 18:34:24 Right Radial and groin(s) prepped with 2% chlorhexidine, and draped after a 3 min. waiting time. 18:34:50 History and physical on the chart or being dictated. Assessment: Initial Case, HR=86 BPM, GTDU=184/80 mmhg, Chest Pain=0, Edema=None, Color=Normal, Skin = Warm, Dry 18:35:04 Right Pulses: Femoral=2, Radial=1 Left Pulses: Femoral=2, Radial=1 Neurological: State=Alert, [place] 18:35:55 Table restraints applied according to hospital policy 18:37:32 HR=93 bpm, DJLG=693/81 mmhg, SpO2=93.0 %, Resp=17 B/min, Pain=0, Ibeth=10, Pena=2 Time Out. Correct patient, correct procedure, correct physician, power injector loaded, or not loaded with contrast with 18:39:59 surgical team present. Time Out Concurred by MD and individual staff in procedure. 18:41:30 Pressure channel 1 zeroed. 18:41:47 Case Start 18:41:50 5 mL 1% XYLOCAINE given in lab by Aleks Boateng in Right Radial via Subcutaneous. 18:42:33 HR=94 bpm, GDVS=574/91 mmhg, SpO2=94.0 %, Resp=15 B/min 18:42:33 Access site was Radial Artery. 5 mL (Bolus) RADIAL COCKTAIL given in lab by Aleks Boateng via Radial. Using [Solution Na me]. Reason: Ntg 18:42:49 200mcg Verapamil 2.5mg Heparin 3000U. 18:43:39 Reference ECG taken A JR 4.0 DXTERITY CATHETER FR 5 was advanced over a wire. 18:43:54 18:45:41 Pressure channel 1 zeroed. Recorded Pressure: Ao, LL=370, Condition=Condition 1 18:46:02 (Aorta) Ao 127/86/106 18:46:22 The RCA was injected and visualized at various angles. 18:47:36 HR=98 bpm, THOR=213/79 mmhg, SpO2=93.0 %, Resp=20 B/min, Pain=0, Pena=2 Recorded Pressure: LV, HR=95, Condition=Condition 1 18:48:49 (Left Ventricle) LV 146/7/13 Recorded Pressure: LV, Ao, HR=94, Condition=Condition 1 18:48:58 (Left Ventricle) LV 133/6/12, (Aorta) Ao 130/33/98 After removing the current catheter a JL 3.5 DXTERITY CATHETER FR 5 was advanced over a WIRE, E XCHANGE 260CM 18:49:59 3MMJ 260CM. 18:52:35 HR=96 bpm, XCLB=623/71 mmhg, SpO2=93.0 %, Resp=14 B/min, Pain=0, Pena=2 18:54:41 The LCA was injected and visualized at various angles. OMNIPAQUE, 350 MG, 150ML 150ML used . 18:55:37 Catheter was removed 18:55:41 Case End 18:57:36 HR=91 bpm, VLLE=822/75 mmhg, SpO2=93.0 %, Resp=16 B/min, Pain=0, Pena=2 Radial Compression Device Used. 15 mLs of air placed in BAND, RADIAL COMPRESSION TR SHORT 24 24 CM. Affected 18:57:58 hand 94 % O2 saturation. 18:58:43 No case complications noted. 18:58:51 Bedside Report will be given. 19:00:18 CVICU called. 19:02:35 HR=88 bpm, OUJG=812/79 mmhg, SpO2=94.0 %, Resp=17 B/min, Pain=0, Pena=2 19:04:34 Vitals capture stopped. 19:05:26 A Left Heart Cath was performed. Assessment: Final Case, HR=87 BPM, TKUP=163/79 mmhg, Chest Pain=0, Edema=None, Color=Normal, S kin = Warm, Dry 19:05:37 Neurological: State=Alert, [place] Respiration: Resp=16 B/min, SpO2=94 % 19:06:51 [facility] - Contrast Media Used In Study Contrast Total Opened (mL) Total Used (mL) Total Wasted (mL) Omnipaque 50 50 0 End Study - Radiation Exposure Fluoro Time (minutes) 3.4 End Study - Patient Disposition Complications Transferred To Interventional Outcome No Critical Care Bed No attempt made
[2017-08-11] MEDS: MELATONIN 5 MG TAB PO SCH (21:00)
[2017-08-11] MEDS: ATORVASTATIN 40 MG TAB PO SCH (21:00)
[2017-08-11] MEDS ORDERED: OLANZapine ODT 5 MG TAB PO PRN (23:00)
--- NOTE | 2017-08-11 23:36 | PD.CARD.PN ---
Subjective Subjective Remarks Able to follow commands, but still some encephalopathy No longer fluid overload appearing Objective Medications Current Medications Medications (Trade) Dose Ordered Sig/Rogerio Route Start Time Stop Time Status Last Admin (Brethine Inj) 1 mg UNSCH PRN SQ 08/06/17 09:15 (Trandate Inj) 20 mg Q15M PRN IV PUSH 08/06/17 16:45 08/11/17 04:10 (Apresoline Inj) 10 mg Q30M PRN IV PUSH 08/06/17 16:45 08/11/17 15:03 Potassium Chloride 100 ml @ 50 mls/hr Q2H PRN IV 08/06/17 16:45 Potassium Chloride 100 ml @ 50 mls/hr Q2H PRN IV 08/06/17 16:45 (K-Lyte Cl Eff) 50 meq UNSCH PRN PO 08/06/17 16:45 Potassium Chloride 100 ml @ 25 mls/hr UNSCH PRN IV 08/06/17 16:45 08/07/17 00:24 Potassium Chloride 100 ml @ 50 mls/hr Q2H PRN IV 08/06/17 16:45 08/08/17 05:39 Magnesium Sulfate 4 gm/Sodium Chloride 100 ml @ 50 mls/hr UNSCH PRN IV 08/06/17 16:45 (Mag-Ox) 800 mg UNSCH PRN PO 08/06/17 16:45 Magnesium Sulfate 2 gm/Sodium Chloride 100 ml @ 50 mls/hr UNSCH PRN IV 08/06/17 16:45 08/07/17 06:06 (K-Phos) 2,000 mg Q4H PRN PO 08/06/17 16:45 Sodium Phosphate 30 mmol/Sodium Chloride 250 ml @ 42 mls/hr UNSCH PRN IV 08/06/17 16:45 (K-Phos) 2,000 mg UNSCH PRN PO/TUBE 08/06/17 16:45 Potassium Phosphate 30 mmol/ Sodium Chloride 260 ml @ 42 mls/hr UNSCH PRN IV 08/06/17 16:45 (Peridex 0.12% Liq) 15 ml BID@08,20 MT 08/06/17 20:00 08/10/17 09:02 (D50w (Vial) Inj) 25 ml UNSCH PRN IV PUSH 08/06/17 16:45 (NovoLIN R SUPPLEMENTAL SCALE) 1 Q6HR SQ 08/06/17 18:00 08/06/17 22:51 (Duoneb Neb) 1 ampule Q2HR NEB PRN INH 08/06/17 16:45 (Zofran Inj) 4 mg Q6H PRN IV PUSH 08/06/17 16:45 Miscellaneous Information 1 Q361D XX 08/06/17 16:45 (Chlorhexidine 2% Cloth) 3 pack Taper DAILY@04 TOP 08/07/17 04:00 08/03/18 03:59 08/11/17 04:00 (Chlorhexidine 2% Cloth) 3 pack UNSCH PRN TOP 08/06/17 16:45 (Rhianna-Colace) 1 tab BID PO 08/06/17 21:00 08/10/17 21:58 (Milk Of Magnesia Liq) 30 ml Q12H PRN PO 08/06/17 16:45 (Lacrilube Opht Oint) 1 applic Q4H PRN EACH EYE 08/06/17 16:45 08/07/17 23:51 (NS Flush) 2 ml BID IV FLUSH 08/06/17 21:00 08/11/17 09:00 (NS Flush) 2 ml UNSCH PRN IV FLUSH 08/06/17 16:45 Miscellaneous Information 0 ml @ 0 mls/hr UNSCH IV 08/06/17 16:45 (Coreg) 3.125 mg Q12HR PO 08/10/17 09:00 08/11/17 09:01 (Lipitor) 40 mg HS PO 08/10/17 21:00 08/10/17 21:58 Ceftriaxone Sodium 2000 mg/ Sodium Chloride 100 ml @ 200 mls/hr Q24H IV 08/10/17 09:00 08/16/17 10:00 08/11/17 09:00 (Pepcid) 20 mg BID PO 08/10/17 21:00 08/10/17 21:58 (Heparin Inj) 5,000 units UNSCH PRN IV PUSH 08/10/17 19:15 (Heparin Inj) 2,500 units UNSCH PRN IV PUSH 08/10/17 19:15 08/11/17 05:31 Heparin Sodium (Porcine) 42588 units/Sodium Chloride 252.5 ml @ 10.1 mls/hr TITRATE PRN IV 08/10/17 15:00 08/11/17 08:35 (Duoneb Neb) 1 ampule Q4HR NEB INH 08/10/17 16:00 08/11/17 19:44 (Lasix Inj) 40 mg BID@,18 IV PUSH 08/10/17 18:00 08/11/17 18:00 (K-Lyte Cl Eff) 25 meq DAILY PO 08/10/17 14:45 (Melatonin) 5 mg HS PO 08/11/17 21:00 (ZyPREXA ZYDIS ODT) 5 mg Q24H PRN PO 08/11/17 23:00 Vital Signs / I&O Vital Signs Date Time Temp Pulse Resp B/P (MAP) Pulse Ox O2 Delivery O2 Flow Rate FiO2 08/11/17 19:44 97 Nasal Cannula 2.00 08/11/17 15:16 96 Nasal Cannula 3.00 08/11/17 15:16 98.5 84 20 160/100 (120) 96 08/11/17 15:15 84 08/11/17 11:36 93 21 08/11/17 11:07 88 08/11/17 11:06 95 Nasal Cannula 3.00 08/11/17 11:05 98.3 87 20 132/93 (106) 98 151/64 (93) 08/11/17 07:31 98.5 88 21 153/70 (97) 95 148/94 (112) 08/11/17 07:30 95 Nasal Cannula 3.00 08/11/17 07:29 90 08/11/17 03:48 95 Nasal Cannula 2.00 08/11/17 03:20 97.8 80 16 142/92 (109) 95 159/80 (106) 08/11/17 03:20 95 Nasal Cannula 3.00 08/11/17 03:00 68 08/11/17 00:28 97 Nasal Cannula 3.00 08/10/17 23:50 75 I/O 08/11/17 08/11/17 08/11/17 08/12/17 08/12/17 08/12/17 07:00 15:00 23:00 07:00 15:00 23:00 Intake Total 179 ml 350 ml 0 ml Output Total 1935 ml 2830 ml Balance 179 ml -1585 ml -2830 ml Intake Oral 100 ml 0 ml IV Total 179 ml 250 ml Output Urine Total 1935 ml 2830 ml # Bowel Movements 0 0 Physical Exam GENERAL: NAD, AAOx1 SKIN: Warm/dry HEAD: Atraumatic. Normocephalic. EYES: Pupils equal and round. No scleral icterus. No injection or drainage. ENT: No nasal bleeding or discharge. Mucous membranes pink and moist. NECK: Trachea midline. No JVD. CARDIOVASCULAR: RRR RESPIRATORY: No accessory muscle use. Clear to auscultation. Breath sounds equal bilaterally. GASTROINTESTINAL: Abdomen soft, non-tender, nondistended. Hepatic and splenic margins not palpable. MUSCULOSKELETAL: Extremities without clubbing, cyanosis, or edema. No obvious deformities. NEUROLOGICAL: No focal deficits noted Laboratory Laboratory Tests Test 08/11/17 04:00 08/11/17 10:40 White Blood Count 9.7 TH/MM3 Red Blood Count 3.98 MIL/MM3 Hemoglobin 10.3 GM/DL Hematocrit 32.0 % Mean Corpuscular Volume 80.5 FL Mean Corpuscular Hemoglobin 25.8 PG Mean Corpuscular Hemoglobin Concent 32.0 % Red Cell Distribution Width 20.7 % Platelet Count 142 TH/MM3 Mean Platelet Volume 9.9 FL Neutrophils (%) (Auto) 60.0 % Lymphocytes (%) (Auto) 22.2 % Monocytes (%) (Auto) 17.6 % Eosinophils (%) (Auto) 0.0 % Basophils (%) (Auto) 0.2 % Neutrophils # (Auto) 5.8 TH/MM3 Lymphocytes # (Auto) 2.2 TH/MM3 Monocytes # (Auto) 1.7 TH/MM3 Eosinophils # (Auto) 0.0 TH/MM3 Basophils # (Auto) 0.0 TH/MM3 CBC Comment AUTO DIFF Differential Total Cells Counted 100 Neutrophils % (Manual) 70 % Band Neutrophils % 2 % Lymphocytes % 13 % Monocytes % 14 % Neutrophils # (Manual) 7.1 TH/MM3 Myelocytes 1 % Differential Comment FINAL DIFF MANUAL Platelet Estimate LOW Platelet Morphology Comment NORMAL Basophilic Stippling MOD Activated Partial Thromboplast Time 31.5 SEC 30.3 SEC Blood Urea Nitrogen 15 MG/DL Creatinine 0.86 MG/DL Random Glucose 80 MG/DL Total Protein 6.8 GM/DL Albumin 2.7 GM/DL Calcium Level 9.0 MG/DL Magnesium Level 1.9 MG/DL Alkaline Phosphatase 85 U/L Aspartate Amino Transf (AST/SGOT) 65 U/L Alanine Aminotransferase (ALT/SGPT) 74 U/L Total Bilirubin 0.7 MG/DL Sodium Level 143 MEQ/L Potassium Level 3.5 MEQ/L Chloride Level 108 MEQ/L Carbon Dioxide Level 26.0 MEQ/L Anion Gap 9 MEQ/L Estimat Glomerular Filtration Rate 90 ML/MIN Imaging Last 24 hours Impressions Chest X-Ray 08/11/17 0600 Signed Impressions: Service Date/Time: July 03:51 - CONCLUSION: Minimal hazy density in right lung has improved. Ponce Balderas MD Assessment and Plan Problem List: (1) Cardiopulmonary arrest with successful resuscitation ICD Codes: I46.9 - Cardiac arrest, cause unspecified Status: Acute (2) NSTEMI (non-ST elevated myocardial infarction) ICD Codes: I21.4 - Non-ST elevation (NSTEMI) myocardial infarction (3) On mechanically assisted ventilation ICD Codes: Z99.11 - Dependence on respirator [ventilator] status Assessment and Plan 1) Cardiac arrest, PEA on arrival deteriorating into Vfib requiring defibrillation 2) NSTEMI Cath showing MVCAD CT surgery evaluation for possible bypass 3) EF 55-60% 4) Hypothermia protocol for 24 hours 5) Restart heparin drip 1 hour after TR band removed Aleks Boateng DO Aug 11, 2017 23:36
[2017-08-12] VITALS (8 sets, daily range): BP systolic 119–191; BP diastolic 57–107; PULSE 74–94; RESP 16–19; TEMP 97.6–99.3; O2SAT 93–99
[2017-08-12] MEDS: LABETALOL HCL 100 MG/20 ML VIAL IV PUSH PRN (00:50)
--- NOTE | 2017-08-12 01:37 | MA ---
cc: Aleks Boateng DO DATE: 08/11/2017 PROCEDURE: Left heart catheterization, coronary angiogram. PREPROCEDURE DIAGNOSIS: Non-ST elevation myocardial infarction, cardiac arrest. POSTPROCEDURE DIAGNOSIS: Multivessel coronary artery disease. MEDICATIONS: 1. Heparin 4400 units 2. Verapamil 2.5 mg. 3. Nitroglycerin 200 mcg. CONTRAST USED: 50 mL FLUOROSCOPY: 3.4 minutes. MODERATE SEDATION: Zero minutes. ESTIMATED BLOOD LOSS: 10 mL PROCEDURAL SUMMARY: Elizabeth Iglesias is a pleasant 62-year-old male who originally presented to [facility] Emergency Room due to a cardiac arrest. During this, he was found to be in ventricular fibrillation. He has since underwent hypothermia protocol and has been rewarmed and extubated. He appears to have anoxic brain injury and has since been rewarmed and extubated. Because of his cardiac arrest, elevated troponins and the ventricular fibrillation, it was felt that he should undergo cardiac catheterization to rule out significant coronary artery disease. Risks, benefits and alternatives have been explained to him and his and his has consented for him. He was brought to the lab and prepped in the usual sterile fashion. The right radial artery was accessed using a modified Seldinger technique and placement of a 5/6 Lao Slender sheath. This was easily aspirated and flushed. A JR4 was advanced over J-wire to the ascending aorta and across the aortic valve for measurement of left ventricular pressure. This was pulled back across the aortic valve showing no significant gradient of aortic stenosis. JR4 was used for selective angiography of the right coronary artery system. This is exchanged out for a JL3.5, which was used for selective angiography of the left coronary artery system. JL3.5 was removed over a J wire. A radial band was placed over the arteriotomy site for hemostasis. The patient left the cathode builder cardiovascularly stable. FINDINGS: LEFT MAIN: Overall appears to be a short vessel with no significant disease. It bifurcates into an LAD and circumflex. LEFT ANTERIOR DESCENDING: Small to moderate sized vessel with multiple lesions throughout including including two 99% stenoses. It gives off 2 diagonals, the first being small with 90% stenosis, the second being larger and appears to take a medial route similar to a dual LAD with a 99% stenosis. LEFT CIRCUMFLEX: Large vessel overall. The mid portion has an 80% stenosis. It gives off 2 obtuse marginals with the second one having 70% ostial stenosis and gives off a PDA distally which has a 40% stenosis. RIGHT CORONARY ARTERY: Small, nondominant vessel. LEFT VENTRICULAR END DIASTOLIC PRESSURE: 12. IMPRESSIONS: 1. Non-ST elevation myocardial infarction. 2. Multivessel coronary artery disease. 3. Cardiac arrest including that of ventricular fibrillation. RECOMMENDATIONS: 1. Mr. Iglesias appears to have multivessel disease and because of this he will be recommended consideration of coronary artery bypass grafting. 2. He will be evaluated by the CT surgery team for possible CABG. 3. He will be restarted on heparin drip 1 hour after TR band removed. 4. Further recommendations will be made after CT surgery evaluation. Thank you for allowing me to see Elizabeth Iglesias. If there are any questions please do not hesitate to call. Aleks Boateng DO VGP/rt , 12:59 AM , 01:35 AM
[2017-08-12 02:32] LABS: AUTOMATED NEUTROPHIL # 3.9 TH/MM3 (1.8-7.7); BASOPHIL # 0.1 TH/MM3 (0-0.2); BASOPHIL % 1.1 % (0.0-2.0); EOSINOPHIL # 0.1 TH/MM3 (0-0.4); EOSINOPHIL % 0.9 % (0.0-4.0); HEMATOCRIT 31.6 % (39.0-51.0); HEMOGLOBIN 10.4 GM/DL (13.0-17.0); LYMPH % 19.1 % (9.0-44.0); LYMPHOCYTE # 1.4 TH/MM3 (1.0-4.8); MEAN CELL VOLUME 79.4 FL (80.0-100.0); MEAN CORPUSCULAR HGB CONC 32.8 % (32.0-36.0); MEAN PLATELET VOLUME 9.3 FL (7.0-11.0); MONO % 26.4 % (0.0-8.0); MONOCYTE # 1.9 TH/MM3 (0-0.9); NEUT % 52.5 % (16.0-70.0); PLATELET COUNT 167 TH/MM3 (150-450); RED BLOOD COUNT 3.98 MIL/MM3 (4.50-5.90); RED CELL DISTRIBUTION WIDTH 20.6 % (11.6-17.2); WHITE BLOOD COUNT 7.4 TH/MM3 (4.0-11.0)
[2017-08-12 02:53] LABS: CALCIUM 8.9 MG/DL (8.5-10.1); CREATININE 0.75 MG/DL (0.60-1.30)
[2017-08-12] MEDS: RESP: ALBUTEROL 2.5 MG/IPRATROPIUM 0.5 MG NEB (SCH) INH ×6 (03:16→22:58)
[2017-08-12] MEDS: CHLORHEXIDINE GLUCONATE 2 % 1 PACK (2 CLOTHS) TOP SCH (04:00)
[2017-08-12] MEDS: INSULIN NovoLIN REGULAR SUPPLEMENTAL SCALE SQ SCH ×4 (06:00→17:27)
[2017-08-12] MEDS: HEPARIN INJ 25,000 UNITS in SODIUM CHLOR 0.9% 250 ML INJ 250 ML IV PRN ×2 (08:00→23:22)
[2017-08-12] MEDS: CHLORHEXIDINE 0.12% (ORAL KIT) 15 ML CUP MT SCH ×2 (08:00→20:00)
[2017-08-12] MEDS: POTASSIUM CHLORIDE 25 MEQ EFFERVESCENT TAB PO SCH (09:00)
[2017-08-12] MEDS: FUROSEMIDE 40 MG/4 ML VIAL IV PUSH SCH ×2 (10:33→17:27)
[2017-08-12] MEDS: FAMOTIDINE 20 MG TAB PO SCH ×2 (10:33→20:25)
[2017-08-12] MEDS: CARVEDILOL 3.125 MG TAB PO SCH ×2 (10:33→20:25)
[2017-08-12] MEDS: DOCUSATE SODIUM 50 MG/SENNA 8.6 MG TAB PO SCH ×2 (10:33→20:25)
[2017-08-12] MEDS: cefTRIAXone INJ 2,000 MG in SODIUM CHLORIDE 0.9% INJ 100 ML IV SCH (10:34)
[2017-08-12] MEDS: SODIUM CHLORIDE 0.9% FLUSH 10 ML FLUSH IV FLUSH SCH ×2 (10:34→20:26)
--- NOTE | 2017-08-12 11:02 | PD.CARD.PN ---
Subjective Subjective Remarks Doing well this morning Femoral line removed, formed a hematoma Objective Medications Current Medications Medications (Trade) Dose Ordered Sig/Rogerio Route Start Time Stop Time Status Last Admin (Brethine Inj) 1 mg UNSCH PRN SQ 08/06/17 09:15 (Trandate Inj) 20 mg Q15M PRN IV PUSH 08/06/17 16:45 08/12/17 00:50 (Apresoline Inj) 10 mg Q30M PRN IV PUSH 08/06/17 16:45 08/11/17 15:03 Potassium Chloride 100 ml @ 50 mls/hr Q2H PRN IV 08/06/17 16:45 Potassium Chloride 100 ml @ 50 mls/hr Q2H PRN IV 08/06/17 16:45 (K-Lyte Cl Eff) 50 meq UNSCH PRN PO 08/06/17 16:45 Potassium Chloride 100 ml @ 25 mls/hr UNSCH PRN IV 08/06/17 16:45 08/07/17 00:24 Potassium Chloride 100 ml @ 50 mls/hr Q2H PRN IV 08/06/17 16:45 08/08/17 05:39 Magnesium Sulfate 4 gm/Sodium Chloride 100 ml @ 50 mls/hr UNSCH PRN IV 08/06/17 16:45 (Mag-Ox) 800 mg UNSCH PRN PO 08/06/17 16:45 Magnesium Sulfate 2 gm/Sodium Chloride 100 ml @ 50 mls/hr UNSCH PRN IV 08/06/17 16:45 08/07/17 06:06 (K-Phos) 2,000 mg Q4H PRN PO 08/06/17 16:45 Sodium Phosphate 30 mmol/Sodium Chloride 250 ml @ 42 mls/hr UNSCH PRN IV 08/06/17 16:45 (K-Phos) 2,000 mg UNSCH PRN PO/TUBE 08/06/17 16:45 Potassium Phosphate 30 mmol/ Sodium Chloride 260 ml @ 42 mls/hr UNSCH PRN IV 08/06/17 16:45 (Peridex 0.12% Liq) 15 ml BID@08,20 MT 08/06/17 20:00 08/10/17 09:02 (D50w (Vial) Inj) 25 ml UNSCH PRN IV PUSH 08/06/17 16:45 (NovoLIN R SUPPLEMENTAL SCALE) 1 Q6HR SQ 08/06/17 18:00 08/06/17 22:51 (Duoneb Neb) 1 ampule Q2HR NEB PRN INH 08/06/17 16:45 (Zofran Inj) 4 mg Q6H PRN IV PUSH 08/06/17 16:45 Miscellaneous Information 1 Q361D XX 08/06/17 16:45 (Chlorhexidine 2% Cloth) Taper DAILY@04 TOP 08/07/17 04:00 08/03/18 03:59 08/12/17 04:00 (Chlorhexidine 2% Cloth) 3 pack UNSCH PRN TOP 08/06/17 16:45 (Rhianna-Colace) 1 tab BID PO 08/06/17 21:00 08/12/17 10:33 (Milk Of Magnesia Liq) 30 ml Q12H PRN PO 08/06/17 16:45 (Lacrilube Opht Oint) 1 applic Q4H PRN EACH EYE 08/06/17 16:45 08/07/17 23:51 (NS Flush) 2 ml BID IV FLUSH 08/06/17 21:00 08/12/17 10:34 (NS Flush) 2 ml UNSCH PRN IV FLUSH 08/06/17 16:45 Miscellaneous Information 0 ml @ 0 mls/hr UNSCH IV 08/06/17 16:45 (Coreg) 3.125 mg Q12HR PO 08/10/17 09:00 08/12/17 10:33 (Lipitor) 40 mg HS PO 08/10/17 21:00 08/11/17 21:00 Ceftriaxone Sodium 2000 mg/ Sodium Chloride 100 ml @ 200 mls/hr Q24H IV 08/10/17 09:00 08/16/17 10:00 08/12/17 10:34 (Pepcid) 20 mg BID PO 08/10/17 21:00 08/12/17 10:33 (Heparin Inj) 5,000 units UNSCH PRN IV PUSH 08/10/17 19:15 (Heparin Inj) 2,500 units UNSCH PRN IV PUSH 08/10/17 19:15 08/11/17 05:31 Heparin Sodium (Porcine) 49092 units/Sodium Chloride 252.5 ml @ 10.1 mls/hr TITRATE PRN IV 08/10/17 15:00 08/11/17 08:35 (Duoneb Neb) 1 ampule Q4HR NEB INH 08/10/17 16:00 08/12/17 07:08 (Lasix Inj) 40 mg BID@18 IV PUSH 08/10/17 18:00 08/12/17 10:33 (K-Lyte Cl Eff) 25 meq DAILY PO 08/10/17 14:45 08/12/17 09:00 (Melatonin) 5 mg HS PO 08/11/17 21:00 08/11/17 21:00 (ZyPREXA ZYDIS ODT) 5 mg Q24H PRN PO 08/11/17 23:00 Vital Signs / I&O Vital Signs Date Time Temp Pulse Resp B/P (MAP) Pulse Ox O2 Delivery O2 Flow Rate FiO2 08/12/17 07:14 95 Nasal Cannula 2.00 08/12/17 07:00 98.3 85 16 175/107 (129) 99 191/95 (127) 08/12/17 07:00 99 Nasal Cannula 2.00 08/12/17 07:00 79 08/12/17 03:00 98 Nasal Cannula 2.00 08/12/17 03:00 97.6 82 16 139/101 (114) 98 151/77 (101) 08/12/17 03:00 74 08/11/17 23:00 98 Nasal Cannula 2.00 08/11/17 23:00 90 08/11/17 23:00 97.8 81 16 164/108 (126) 98 160/80 (106) 08/11/17 19:44 97 Nasal Cannula 2.00 08/11/17 19:00 97 Nasal Cannula 2.00 08/11/17 19:00 100 08/11/17 19:00 97.6 101 18 141/93 (109) 98 166/85 (112) 08/11/17 15:16 96 Nasal Cannula 3.00 08/11/17 15:16 98.5 84 20 160/100 (120) 96 08/11/17 15:15 84 08/11/17 11:36 93 21 08/11/17 11:07 88 08/11/17 11:06 95 Nasal Cannula 3.00 08/11/17 11:05 98.3 87 20 132/93 (106) 98 151/64 (93) I/O 08/11/17 08/11/17 08/11/17 08/12/17 08/12/17 08/12/17 07:00 15:00 23:00 07:00 15:00 23:00 Intake Total 179 ml 350 ml 0 ml 200 ml Output Total 1935 ml 2830 ml 2800 ml Balance 179 ml -1585 ml -2830 ml -2600 ml Intake Oral 100 ml 0 ml 200 ml IV Total 179 ml 250 ml Output Urine Total 1935 ml 2830 ml 2800 ml # Bowel Movements 0 0 0 Physical Exam GENERAL: NAD, AAOx1 SKIN: Warm/dry HEAD: Atraumatic. Normocephalic. EYES: Pupils equal and round. No scleral icterus. No injection or drainage. ENT: No nasal bleeding or discharge. Mucous membranes pink and moist. NECK: Trachea midline. No JVD. CARDIOVASCULAR: RRR RESPIRATORY: No accessory muscle use. Clear to auscultation. Breath sounds equal bilaterally. GASTROINTESTINAL: Abdomen soft, non-tender, nondistended. Hepatic and splenic margins not palpable. MUSCULOSKELETAL: Extremities without clubbing, cyanosis, or edema. No obvious deformities. Right radial no hematoma, neurovascularly intact distally. Left femoral with hematoma, pressed out and marked, soft. NEUROLOGICAL: No focal deficits noted Laboratory Laboratory Tests Test 08/12/17 01:40 White Blood Count 7.4 TH/MM3 Red Blood Count 3.98 MIL/MM3 Hemoglobin 10.4 GM/DL Hematocrit 31.6 % Mean Corpuscular Volume 79.4 FL Mean Corpuscular Hemoglobin 26.0 PG Mean Corpuscular Hemoglobin Concent 32.8 % Red Cell Distribution Width 20.6 % Platelet Count 167 TH/MM3 Mean Platelet Volume 9.3 FL Neutrophils (%) (Auto) 52.5 % Lymphocytes (%) (Auto) 19.1 % Monocytes (%) (Auto) 26.4 % Eosinophils (%) (Auto) 0.9 % Basophils (%) (Auto) 1.1 % Neutrophils # (Auto) 3.9 TH/MM3 Lymphocytes # (Auto) 1.4 TH/MM3 Monocytes # (Auto) 1.9 TH/MM3 Eosinophils # (Auto) 0.1 TH/MM3 Basophils # (Auto) 0.1 TH/MM3 CBC Comment DIFF FINAL Differential Comment Activated Partial Thromboplast Time 22.2 SEC Blood Urea Nitrogen 19 MG/DL Creatinine 0.75 MG/DL Random Glucose 76 MG/DL Calcium Level 8.9 MG/DL Sodium Level 143 MEQ/L Potassium Level 3.2 MEQ/L Chloride Level 104 MEQ/L Carbon Dioxide Level 30.0 MEQ/L Anion Gap 9 MEQ/L Estimat Glomerular Filtration Rate 105 ML/MIN Assessment and Plan Problem List: (1) Cardiopulmonary arrest with successful resuscitation ICD Codes: I46.9 - Cardiac arrest, cause unspecified Status: Acute (2) NSTEMI (non-ST elevated myocardial infarction) ICD Codes: I21.4 - Non-ST elevation (NSTEMI) myocardial infarction (3) On mechanically assisted ventilation ICD Codes: Z99.11 - Dependence on respirator [ventilator] status Assessment and Plan 1) Cardiac arrest, PEA on arrival deteriorating into Vfib requiring defibrillation 2) NSTEMI Cath showing MVCAD CT surgery evaluation for possible bypass 3) EF 55-60% 4) Restart heparin drip when possible 5) Discussed with patient and his Aleks Boateng Aug 12, 2017 11:02
--- NOTE | 2017-08-12 11:56 | HHI.CCPN ---
Subjective Remarks/Hospital Course Hospital Course: This is a 62-year-old male who presented by private vehicle for acute altered mental status. Per ER reports, he was riding with his through [place] when he passed out. She immediately turned and drove to the [facility] emergency department where in the ER he was found to be in PEA arrest. The states that was approximately 3-5 minutes of driving before she arrived to the ER. After ACLS, ROSC was obtained. A poor neurologic exam and was emergently transferred to [facility]. I evaluated the patient upon arrival to the CVICU. He had pupils that were 6 mm, sluggishly reactive, deviated to the left. He was extensor posturing in the upper extremities and flexor posturing in the lowers. He had a head CT that was negative for acute intracranial hemorrhage. There was some report from the emergency department that at least one rhythm during ACLS was ventricular fibrillation, suggesting a possible ischemic component to this cardiac arrest. I had a discussion with Dr. Boateng with cardiology and we both agree the patient would be a good hypothermic candidate. No additional information is available from the patient due to his clinical condition. ROS unobtainable. subjective: 08/07: hypothermic today. bradycardic, but off pressors. remains critically ill. troponin significantly elevated, but slightly downtrended. 08/08: Patient is in the rewarming phase. Pupils remain 2 mm sluggish. Will be completing rewarming by known, I will repeat neuro exam at this time. Chest x- ray pending 08/09: Rewarming completed yesterday. Remains encephalopathy. Moving all extremities spontaneously. No tracking did not follow commands. Asynchronous with the vent when sedation is held, start Precedex to facilitate neuro exam 08/10: Improving neuro exam. Follows commands in all 4 extremities, but responds slowly. MRI negative for anoxic brain injury. EEG showed encephalopathy. Initiate CPAP trials 08/11: continues to improve hemodynamically. on NC o2. still clinically appears volume overloaded. +jvd. NPO for C today with Dr. Boateng. continue forced diuresis. still delirious with mild encephalopathy. 08/12: [facility] yesterday with multivessel CAD. remains on nc o2. passed swallow evaluation. CT surgery consult pending. Objective Vital Signs Date Time Temp Pulse Resp B/P (MAP) Pulse Ox O2 Delivery O2 Flow Rate FiO2 08/12/17 07:14 95 Nasal Cannula 2.00 08/12/17 07:00 98.3 85 16 175/107 (129) 191/95 (127) 08/11/17 11:36 21 Intake and Output 08/12/17 08/12/17 08/13/17 08:00 16:00 00:00 Intake Total 200 ml Output Total 2800 ml Balance -2600 ml Result Diagram: 08/12/1713908/12/17139 Objective Remarks GENERAL: Middle-aged male, lying in bed, awake, confused. HEENT: Normocephalic. Atraumatic. Pupils are 3 mm, reactive. NECK: Trachea is midline. mild elevation of JVD. CHEST: Equal chest rise. nc o2. CARDIOVASCULAR: NSR, regular rhythm. ABDOMEN: Soft, nontender, nondistended. no guarding. MUSCULOSKELETAL: Pulses 2+. 1+ peripheral edema. Peripheral perfusion is improved. right groin art line in place, clean and dry. dressing intact. NEUROLOGICAL: RASS -1. CAM+. follows commands. oriented to person. confused. A/P Assessment and Plan Assessment: 62-year-old male with out of hospital cardiac arrest and multivessel coronary disease. Now extubated with improving neuro exam, although mild encephalopathy persists and confused. CT surgery consult for consideration of CABG. can transfer out of ICU to step-down unit. 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 Completed hypothermic protocol. Improving neuro exam, GCS 14. MRI negative for any significant anoxic brain injury continue frequent neuro checks melatonin for sleep good day/night reorientation Respiratory: Acute hypoxic hypercarbic respiratory failure- improving. Pulmonary edema Wean oxygen for goal spo2 > 90% Sputum culture staph aureus aggressive pulmonary toilet. continue forced diuresis. Cardiovascular: Status post out of hospital cardiac arrest Ventricular fibrillation ACS Serial troponins peaked at 29. Cardiology Dr. Boateng. [facility] 08/11: multivessel CAD. Continue aspirin, Lipitor (monitor liver enzymes) Add Coreg 3.125 mg every 12 Renal: Acute kidney injury d/c hunter Strict I/Os Creatinine has normalized forced diuresis FEN/GI: advance diet per speech. ICU electrolyte protocol Heme/ID: Daily CBC Sputum culture growing staph aureus. Placed on Rocephin 2 g every 24 hours: plan for full 7 day course for community acquired aspiration. anticipated stop date 08/15. Chest x-ray no acute findings Endocrine: Hyperglycemia of critical illness -- SSI, medium scale, every 6 Prophylaxis: GI Prophylaxis Pepcid IV DVT Prophylaxis -- SCDs Sq heparin Lines: Hunter Dispo: transfer out of ICU. consult hospitalist service. Luis Juarez MD Aug 12, 2017 11:56
[2017-08-12] MEDS: HEPARIN SODIUM - IV 10,000 UNITS/10 ML VIAL IV PUSH PRN ×2 (12:59→22:58)
--- NOTE | 2017-08-12 13:59 | PD.CAR.PN ---
CVT Progress Note Subjective/Hospital Course: pt seen and evaluated,/ full consult to follow sts data does not reflect recent cardiac arrest / and recent hypoxic probable anoxic ischemic encephalopathy RISK SCORES About the STS Risk Calculator Procedure: CAB Only Risk of Mortality: 0.646% Morbidity or Mortality: 9.482% Long Length of Stay: 3.444% Short Length of Stay: 55.937% Permanent Stroke: 0.546% Prolonged Ventilation: 6.947% DSW Infection: 0.496% Renal Failure: 1.117% Reoperation: 3.719% Objective: Vital Signs Date Time Temp Pulse Resp B/P (MAP) Pulse Ox O2 Delivery O2 Flow Rate FiO2 08/12/17 11:00 81 08/12/17 11:00 99.3 77 16 148/93 (111) 97 Arterial Line 08/12/17 11:00 97 Nasal Cannula 2.00 08/12/17 07:14 95 Nasal Cannula 2.00 08/12/17 07:00 98.3 85 16 175/107 (129) 99 191/95 (127) 08/12/17 07:00 99 Nasal Cannula 2.00 08/12/17 07:00 79 08/12/17 03:00 98 Nasal Cannula 2.00 08/12/17 03:00 97.6 82 16 139/101 (114) 98 151/77 (101) 08/12/17 03:00 74 08/11/17 23:00 98 Nasal Cannula 2.00 08/11/17 23:00 90 08/11/17 23:00 97.8 81 16 164/108 (126) 98 160/80 (106) 08/11/17 19:44 97 Nasal Cannula 2.00 08/11/17 19:00 97 Nasal Cannula 2.00 08/11/17 19:00 100 08/11/17 19:00 97.6 101 18 141/93 (109) 98 166/85 (112) 08/11/17 15:16 96 Nasal Cannula 3.00 08/11/17 15:16 98.5 84 20 160/100 (120) 96 08/11/17 15:15 84 Labs: Laboratory Tests Test 08/12/17 11:55 Activated Partial Thromboplast Time 25.4 SEC (24.3-30.1) Result Diagram: 08/12/17 0140 08/12/17 0140 (1) Cardiopulmonary arrest with successful resuscitation (2) NSTEMI (non-ST elevated myocardial infarction) (3) On mechanically assisted ventilation Ping Narayanan Aug 12, 2017 13:59
--- NOTE | 2017-08-12 14:25 | MB ---
cc: Linda Narayananforeign SPENCE DATE: 08/12/2017 HISTORY OF PRESENT ILLNESS: Apparently this gentleman was with his spouse in the [place] area when he passed out in the car. She immediately dropped a large Emergency Department where he was found to be in PEA arrest. She said, per the ED notes, that there were approximately 3-5 minutes [address] before arriving at the emergency department. After ACLS protocol return of spontaneous circulation was obtained. Initially, a poor neuro exam was obtained and then immediately transferred to [facility]. He was evaluated by critical care med. Per the notes from critical care, the pupils are 6 mm, deviated to the left. There was an extensor posturing in the upper extremities and flexure posturing in the lowers. Initial head CT was negative for acute intracranial hemorrhage. He was also found to have 1 rhythm of ventricular fibrillation, suggesting possible ischemic component. The decision was made for hypothermic therapy, which was started the same day. He was rewarmed on the with complete rewarming completed on the . At that time, per the notes, he had moved all extremities, but was not following commands. He was then extubated on the and underwent heart catheterization on the by Dr. Boateng, which showed 10% left main, proximal LAD 99%, mid distal LAD 90%, diagonal 90%, the circumflex had 80%, the OM 70%, the RCA 10%, ejection fraction 60%. Echocardiogram was also done, which showed an EF of 55-60%, so the left atrial size was mild to moderately dilated. There was some trace aortic AI, mild tricuspid regurgitation. We were consulted to evaluate for coronary artery bypass grafting. PAST MEDICAL HISTORY: Hypertension and hyperlipidemia. PAST SURGICAL HISTORY: Include gastric bypass surgery in the 1960s, back surgery, per the patient cholecystectomy and tonsillectomy. ALLERGIES: MORPHINE. HOME MEDICATIONS: Include Flomax, Robaxin, atorvastatin, lisinopril, tramadol. FAMILY HISTORY: Per the patient, father is , mother still living, rather healthy. SOCIAL HISTORY: The patient is and has 1 child, retired from construction. He drinks about 36 ounces of vodka and/or rum daily. Quit smoking 12 years ago. He is also somewhat forgetful. REVIEW OF SYSTEMS: Not consistent. PHYSICAL EXAMINATION: VITAL SIGNS: Blood pressure 148/90, heart rate of 77, temperature T-max 99.3, O2 saturation 97% on 2 liters. GENERAL: The patient is awake, alert to name. He has significant cognitive deficits at this time. HEENT: Pupils are equal and reactive. Oral mucosa pink, moist. NECK: Supple. No JVD. HEART: Sounds S1, S2. Regular rate and rhythm. No audible rubs, murmurs, or gallops. LUNGS: Diminished in the bases, otherwise clear to auscultation. No wheezes, rales or rhonchi. ABDOMEN: Soft, nontender. No masses or organomegaly. EXTREMITIES: Reveal no cyanosis, clubbing, or edema. He has a large midline abdominal well-healed incision line. LABORATORY DATA: Lab work shows hemoglobin 10.4, hematocrit of 31, white cell count of 7.4, platelet count of 167. Sodium 143, potassium 3.2 which has been replaced, BUN of 19, creatinine 0.75. Troponin was as high as 28 with a lactate of 8.6, now resolved. MRSA screen was negative. The sputum showed MSSA. A negative urine tox screen. Urine showed some evidence of possible UTI. RADIOLOGICAL EXAM: Head CT showed no acute disease. Brain MRI normal. Chest x-ray this morning, some density in the right lung has much improved. IMPRESSION: 1. This is a 62-year-old male with acute cardiac arrest. Initial rhythm was pulseless electrical activity. There was also an episode of ventricular fibrillation arrest with complete ACLS return of spontaneous circulation, status post hypothermic therapy. 2. Hypoxic encephalopathy with significant cognitive deficits at this time. Continue occupational therapy, physical therapy, speech therapy. He has now passed a swallow exam for mechanical soft. 3. Status post acute respiratory failure secondary to cardiac arrest. 4. Status post heart catheterization with multivessel disease, ejection fraction of 55% to 60%. PLAN: At this time, recommend the patient continue with aggressive PT, OT, speech therapy. Also remain on heparin drip at this time. The patient will need bypass grafting. We will evaluate mid next week after the patient has some cognitive improvement. In the meantime, we will order preoperative evaluation procedures and further plan per Dr. Noemi Ortiz. JORDY Shaw, MD TOMAST/FELISA , 01:48 PM , 02:25 PM
[2017-08-12] MEDS: MELATONIN 5 MG TAB PO SCH (20:25)
[2017-08-12] MEDS: ATORVASTATIN 40 MG TAB PO SCH (20:25)
[2017-08-13] VITALS (25 sets, daily range): BP systolic 104–158; BP diastolic 67–88; PULSE 66–98; RESP 19–20; TEMP 97.7–98.7; O2SAT 94–100
[2017-08-13] MEDS: RESP: ALBUTEROL 2.5 MG/IPRATROPIUM 0.5 MG NEB (SCH) INH ×5 (03:20→20:17)
[2017-08-13] MEDS: CHLORHEXIDINE GLUCONATE 2 % 1 PACK (2 CLOTHS) TOP SCH (04:00)
[2017-08-13 05:33] LABS: HEMATOCRIT 29.5 % (39.0-51.0); HEMOGLOBIN 9.5 GM/DL (13.0-17.0); MEAN CELL VOLUME 80.1 FL (80.0-100.0); MEAN CORPUSCULAR HEMOGLOBIN 25.7 PG (27.0-34.0); MEAN CORPUSCULAR HGB CONC 32.1 % (32.0-36.0); MEAN PLATELET VOLUME 9.1 FL (7.0-11.0); PLATELET COUNT 179 TH/MM3 (150-450); RED BLOOD COUNT 3.68 MIL/MM3 (4.50-5.90); RED CELL DISTRIBUTION WIDTH 20.4 % (11.6-17.2); WHITE BLOOD COUNT 7.2 TH/MM3 (4.0-11.0)
[2017-08-13 06:00] LABS: BICARBONATE 32.7 MEQ/L (21.0-32.0); CALCIUM 8.5 MG/DL (8.5-10.1); CREATININE 0.68 MG/DL (0.60-1.30)
[2017-08-13] MEDS: INSULIN NovoLIN REGULAR SUPPLEMENTAL SCALE SQ SCH ×2 (06:00)
[2017-08-13] MEDS ORDERED: POTASSIUM CHLORIDE 10 MEQ CONTROLLED RELEASE TAB PO ONE (06:15)
[2017-08-13] MEDS: HEPARIN SODIUM - IV 10,000 UNITS/10 ML VIAL IV PUSH PRN ×3 (06:31→21:17)
[2017-08-13] MEDS: POTASSIUM CHLOR 20 MEQ PREMIX 100 ML IV SCH ×2 (06:32→09:05)
[2017-08-13] MEDS: HEPARIN INJ 25,000 UNITS in SODIUM CHLOR 0.9% 250 ML INJ 250 ML IV PRN ×2 (06:34→12:53)
[2017-08-13] MEDS: CHLORHEXIDINE 0.12% (ORAL KIT) 15 ML CUP MT SCH ×2 (09:05→20:00)
[2017-08-13] MEDS: SODIUM CHLORIDE 0.9% FLUSH 10 ML FLUSH IV FLUSH SCH ×2 (09:06→21:15)
[2017-08-13] MEDS: CARVEDILOL 3.125 MG TAB PO SCH ×2 (09:06→21:16)
[2017-08-13] MEDS: cefTRIAXone INJ 2,000 MG in SODIUM CHLORIDE 0.9% INJ 100 ML IV SCH (09:06)
[2017-08-13] MEDS: LISINOPRIL 20 MG TAB PO SCH (09:06)
[2017-08-13] MEDS: DOCUSATE SODIUM 50 MG/SENNA 8.6 MG TAB PO SCH ×2 (09:06→21:16)
[2017-08-13] MEDS: ASPIRIN EC 325 MG TABEC PO SCH (09:07)
[2017-08-13] MEDS: FUROSEMIDE 40 MG/4 ML VIAL IV PUSH SCH ×2 (09:07→17:38)
[2017-08-13] MEDS: POTASSIUM CHLORIDE 25 MEQ EFFERVESCENT TAB PO SCH (09:07)
[2017-08-13] MEDS: FAMOTIDINE 20 MG TAB PO SCH ×2 (09:07→21:16)
--- NOTE | 2017-08-13 09:51 | HHI.PR ---
Subjective Remarks Follow-up CAD and encephalopathy. No chest pain but remains confused. According to his , mental status is improving he is oriented except to time. Following commands. Discussed with nursing, aggressively replace electrolytes especially potassium and repeat BMP and magnesium at 12 noon today Objective Vitals Vital Signs Date Time Temp Pulse Resp B/P (MAP) Pulse Ox O2 Delivery O2 Flow Rate FiO2 08/13/17 08:32 98 Nasal Cannula 2.00 08/13/17 06:16 70 08/13/17 05:20 81 08/13/17 04:41 90 08/13/17 03:20 98.7 80 19 143/77 (99) 94 08/13/17 03:20 87 08/13/17 03:20 Nasal Cannula 2.00 08/13/17 02:00 87 08/13/17 01:05 84 08/12/17 23:40 Nasal Cannula 2.00 08/12/17 23:40 79 08/12/17 23:40 98.2 79 19 136/78 (97) 93 08/12/17 19:47 96 Nasal Cannula 2.00 08/12/17 19:20 86 08/12/17 19:20 Nasal Cannula 2.00 08/12/17 19:20 98.0 79 18 119/74 (89) 96 08/12/17 15:00 99.1 94 16 131/57 (81) 95 08/12/17 15:00 95 Nasal Cannula 2.00 08/12/17 15:00 88 08/12/17 11:00 81 08/12/17 11:00 99.3 77 16 148/93 (111) 97 Arterial Line 08/12/17 11:00 97 Nasal Cannula 2.00 I/O 08/12/17 08/12/17 08/12/17 08/13/17 08/13/17 08/13/17 07:00 15:00 23:00 07:00 15:00 23:00 Intake Total 200 ml 100 ml 640 ml 480 ml Output Total 2800 ml 1800 ml Balance -2600 ml 100 ml -1160 ml 480 ml Intake Oral 200 ml 240 ml 480 ml IV Total 100 ml 400 ml Output Urine Total 2800 ml 1800 ml # Voids 3 # Bowel Movements 0 0 0 Result Diagram: 08/13/1744308/13/17443 Imaging Last Impressions Chest X-Ray 08/11/17 0600 Signed Impressions: Service Date/Time: July 03:51 - CONCLUSION: Minimal hazy density in right lung has improved. Ponce Balderas MD Brain MRI 08/09/17 0000 Signed Impressions: Service Date/Time: Wednesday, August 09, 2017 15:52 - CONCLUSION: Normal examination. Moisés Pineda MD Head CT 08/06/17 0000 Signed Impressions: Service Date/Time: Sunday, August 06, 2017 14:10 - CONCLUSION: No acute intracranial disease. Moisés Olvera MD Objective Remarks GENERAL: Middle-aged male, lying in bed, awake, confused. HEENT: Normocephalic. Atraumatic. Pupils are 3 mm, reactive. NECK: Trachea is midline. mild elevation of JVD. CHEST: Equal chest rise. nc o2. CARDIOVASCULAR: NSR, regular rhythm. ABDOMEN: Soft, nontender, nondistended. no guarding. MUSCULOSKELETAL: Pulses 2+. 1+ peripheral edema. Peripheral perfusion is improved. right groin art line in place, clean and dry. dressing intact. NEUROLOGICAL: Awake and alert. follows commands. oriented to person and place. confused. Delete Procedures Cardiac catheterization, arterial line, femoral cooling catheter A/P Problem List: (1) NSTEMI (non-ST elevated myocardial infarction) ICD Code: I21.4 - Non-ST elevation (NSTEMI) myocardial infarction (2) Cardiopulmonary arrest with successful resuscitation ICD Code: I46.9 - Cardiac arrest, cause unspecified Status: Acute Assessment and Plan 62-year-old male with out of hospital cardiac arrest and multivessel coronary disease. Now extubated with improving neuro exam, although mild encephalopathy persists and confused. CT surgery consult for consideration of CABG. 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 Completed hypothermic protocol. Improving neuro exam, GCS 14. MRI negative for any significant anoxic brain injury continue frequent neuro checks melatonin for sleep good day/night reorientation ST for cognitive tx Respiratory: Acute hypoxic hypercarbic respiratory failure- improving. Pulmonary edema Wean oxygen for goal spo2 > 90% Sputum culture staph aureus aggressive pulmonary toilet. continue forced diuresis. Cardiovascular: Status post out of hospital cardiac arrest Ventricular fibrillation ACS Serial troponins peaked at 29. Cardiology Dr. Boateng. [facility] 08/11: multivessel CAD. Continue aspirin, Lipitor (monitor liver enzymes), Coreg and lisinopril. Heparin drip CTS for CABG pending improvement of mental status Renal: Acute kidney injury d/c hunter Strict I/Os Creatinine has normalized forced diuresis FEN/GI: advance diet per speech. Hypokalemia. Aggressive replacement with 40 M EQ IV potassium and additional 40 M EQ p.o. and repeat BMP and magnesium metformin today Heme/ID: Daily CBC Sputum culture growing staph aureus. Placed on Rocephin 2 g every 24 hours: plan for full 7 day course for community acquired aspiration. anticipated stop date 08/15. Chest x-ray no acute findings Endocrine: Hyperglycemia of critical illness --Improved discontinue sliding Prophylaxis: GI Prophylaxis Pepcid DVT Prophylaxis -- SCDs heparin Duglas Hooker MD Aug 13, 2017 09:51
[2017-08-13] MEDS ORDERED: POTASSIUM CHLORIDE 20 MEQ CONTROLLED RELEASE TAB PO ONE (10:00)
--- NOTE | 2017-08-13 10:58 | PD.CAR.PN ---
CVT Progress Note Subjective/Hospital Course: pt seen and evaluated,/ full consult to follow sts data does not reflect recent cardiac arrest / and recent hypoxic probable anoxic ischemic encephalopathy RISK SCORES About the STS Risk Calculator Procedure: CAB Only Risk of Mortality: 0.646% Morbidity or Mortality: 9.482% Long Length of Stay: 3.444% Short Length of Stay: 55.937% Permanent Stroke: 0.546% Prolonged Ventilation: 6.947% DSW Infection: 0.496% Renal Failure: 1.117% Reoperation: 3.719% 08/13/17 Patient has been transferred to [facility]. He remains lethargic and somewhat confused. Speech is slurred and he is very deconditioned. Objective: Vital Signs Date Time Temp Pulse Resp B/P (MAP) Pulse Ox O2 Delivery O2 Flow Rate FiO2 08/13/17 10:00 78 08/13/17 09:00 80 08/13/17 09:00 80 158/88 (111) 100 08/13/17 08:32 98 Nasal Cannula 2.00 08/13/17 08:00 98 08/13/17 07:00 97.7 73 20 148/81 (103) 96 08/13/17 07:00 87 08/13/17 07:00 96 Nasal Cannula 2.00 08/13/17 06:16 70 08/13/17 05:20 81 08/13/17 04:41 90 08/13/17 03:20 98.7 80 19 143/77 (99) 94 08/13/17 03:20 87 08/13/17 03:20 Nasal Cannula 2.00 08/13/17 02:00 87 08/13/17 01:05 84 08/12/17 23:40 Nasal Cannula 2.00 08/12/17 23:40 79 08/12/17 23:40 98.2 79 19 136/78 (97) 93 08/12/17 19:47 96 Nasal Cannula 2.00 08/12/17 19:20 86 08/12/17 19:20 Nasal Cannula 2.00 08/12/17 19:20 98.0 79 18 119/74 (89) 96 08/12/17 15:00 99.1 94 16 131/57 (81) 95 08/12/17 15:00 95 Nasal Cannula 2.00 08/12/17 15:00 88 08/12/17 11:00 81 08/12/17 11:00 99.3 77 16 148/93 (111) 97 Arterial Line 08/12/17 11:00 97 Nasal Cannula 2.00 Labs: Laboratory Tests Test 08/13/17 04:44 White Blood Count 7.2 TH/MM3 (4.0-11.0) Red Blood Count 3.68 MIL/MM3 (4.50-5.90) Hemoglobin 9.5 GM/DL (13.0-17.0) Hematocrit 29.5 % (39.0-51.0) Mean Corpuscular Volume 80.1 FL (80.0-100.0) Mean Corpuscular Hemoglobin 25.7 PG (27.0-34.0) Mean Corpuscular Hemoglobin Concent 32.1 % (32.0-36.0) Red Cell Distribution Width 20.4 % (11.6-17.2) Platelet Count 179 TH/MM3 (150-450) Mean Platelet Volume 9.1 FL (7.0-11.0) Activated Partial Thromboplast Time 28.9 SEC (24.3-30.1) Blood Urea Nitrogen 24 MG/DL (7-18) Creatinine 0.68 MG/DL (0.60-1.30) Random Glucose 100 MG/DL (74-106) Calcium Level 8.5 MG/DL (8.5-10.1) Sodium Level 142 MEQ/L (136-145) Potassium Level 2.7 MEQ/L (3.5-5.1) Chloride Level 102 MEQ/L (98-107) Carbon Dioxide Level 32.7 MEQ/L (21.0-32.0) Anion Gap 7 MEQ/L (5-15) Estimat Glomerular Filtration Rate 117 ML/MIN (>89) Magnesium Level 1.8 MG/DL (1.5-2.5) Result Diagram: 08/13/17 0444 08/13/17 0444 Imaging: Last Impressions Chest X-Ray 08/11/17 0600 Signed Impressions: Service Date/Time: July 03:51 - CONCLUSION: Minimal hazy density in right lung has improved. Ponce Balderas MD Brain MRI 08/09/17 0000 Signed Impressions: Service Date/Time: Wednesday, August 09, 2017 15:52 - CONCLUSION: Normal examination. Moisés Pineda MD Head CT 08/06/17 0000 Signed Impressions: Service Date/Time: Sunday, August 06, 2017 14:10 - CONCLUSION: No acute intracranial disease. Moisés Olvera MD Cardiovascular: RRR Telemetry: NSR Pulmonary: Few crackles bilat GI/: NABS, NT Plan: Aggressive PT/OT/speech tx - he has an obvious encephalopathy which is improving. I would NOT consider CABG at this time due to his neurologic status. Will follow for further improvement. (1) Cardiopulmonary arrest with successful resuscitation (2) NSTEMI (non-ST elevated myocardial infarction) (3) On mechanically assisted ventilation Noemi Ortiz MD Aug 13, 2017 10:58
--- NOTE | 2017-08-13 12:04 | RADRPT ---
EXAM DATE/TIME: 08/13/2017 10:40 [facility] COMPARISON: No previous studies available for comparison. INDICATIONS : Pre-op cardiac surgery. MEDICAL HISTORY : Hypercholesterolemia. Hypertension. Prostate cancer. SURGICAL HISTORY : Gastric bypass. Inguinal hernia repair. Spinal surgery L4-L5. ENCOUNTER: Initial ACUITY: 1 day PAIN SCORE: 0/10 LOCATION: Bilateral legs. TECHNIQUE: Venous ultrasound of the left and right leg was performed from the inguinal ligament to the proximal calf. Real-time, color Doppler and spectral tracing, compression and augmentation techniques were us ed. FINDINGS: RIGHT LEG: There is nonocclusive thrombus in the right common femoral vein which is partially compressible. No e chogenic clot is seen in the lumen of the superficial femoral, popliteal, and posterior tibial veins. There is a normal response of the venous system to proximal and distal augmentation and respiration . LEFT LEG: There is normal compressibility of the deep venous system from the inguinal region to the proximal ca lf. No echogenic clot is seen in the lumen of the common femoral, femoral, popliteal, and posterior tibial veins. There is a normal response of the venous system to proximal and distal augmentation an d respiration. CONCLUSION: 1. Nonocclusive thrombus in the right common femoral vein which is partially compressible. 2. No evidence of left lower extremity venous thrombosis. Hussain Cuba MD on August 13, 2017 at 12:01 Board Certified Radiologist. This report was verified electronically.
--- NOTE | 2017-08-13 12:06 | RADRPT ---
EXAM DATE/TIME: 08/13/2017 10:53 [facility] COMPARISON: No previous studies available for comparison. INDICATIONS : Pre-op cardiac surgery. MEDICAL HISTORY : Hypercholesterolemia. Hypertension. Prostate cancer. SURGICAL HISTORY : Gastric bypass. Inguinal hernia repair. Spinal surgery L4-L5. ENCOUNTER: Initial ACUITY: 1 day PAIN SCORE: 0/10 LOCATION: Bilateral legs. GREATER SAPHENOUS VEIN THIGH: PROXIMAL: Right 6 mm Left 3 mm MID: Right 2 mm Left 3 mm DISTAL: Right 2 mm Left 2 mm CALF: PROXIMAL: Right 1 mm Left 2 mm MID: Right 2 mm Left Non-visualized DISTAL: Right 1 mm Left Non-visualized FINDINGS: The venous system of the lower extremities are patent by color Doppler imaging. Measurements of the leg veins (in mm) are listed above. CONCLUSION: Venous mapping study as described. Hussain Cuba MD on August 13, 2017 at 12:03 Board Certified Radiologist. This report was verified electronically.
--- NOTE | 2017-08-13 12:16 | RADRPT ---
EXAM DATE/TIME: 08/13/2017 11:13 [facility] COMPARISON: No previous studies available for comparison. INDICATIONS : Pre-op cardiac surgery. MEDICAL HISTORY : Hypercholesterolemia. Hypertension. Prostate cancer. SURGICAL HISTORY : Gastric bypass. Inguinal hernia repair. Spinal surgery L4-L5. ENCOUNTER: Initial ACUITY: 1 day PAIN SCORE: 0/10 LOCATION: Bilateral neck PEAK SYSTOLIC VELOCITIES (cm/sec): ICA/CCA RATIO: Right: 3.0 Left: 1.0 ICA: Right: 202 Left: 112 CCA: Right: 68 Left: 111 ECA: Right: 89 Left: 106 VERTEBRAL: Right: 48 antegrade Left: 63 antegrade Elevated flow velocities and ICA/CCA ratios have been found to correlate with increased degrees of vessel stenosis, calculated as percentage of diameter relative to a normal segment of distal ICA/CCA FINDINGS: RIGHT CAROTID: Significant plaque is noted in the right carotid bulb and proximal internal carotid artery with mild turbulence by color flow. There is elevation of the systolic velocity in the right internal carotid a rtery with spectral broadening. LEFT CAROTID: Mild to moderate calcific plaquing is noted in the carotid bulb and proximal internal carotid artery with no turbulence or jet effect by color flow. The velocities are within normal limits. The waveform s are within normal limits. VERTEBRAL ARTERIES: Antegrade flow is seen in both vertebral arteries. MISCELLANEOUS: None. CONCLUSION: 1. Evidence of 50-69% diameter stenosis in the right internal carotid artery by velocity criteria wit h significant plaque in the right carotid bulb and proximal internal carotid artery. 2. Mild to moderate plaque in the left carotid bulb with less than 50% diameter stenosis by velocity criteria. Hussain Cuba MD on August 13, 2017 at 12:11 Board Certified Radiologist. This report was verified electronically.
--- NOTE | 2017-08-13 13:52 | PD.CARD.PN ---
Subjective Subjective Remarks no angina, no complaints Objective Medications Current Medications Medications (Trade) Dose Ordered Sig/Rogerio Route Start Time Stop Time Status Last Admin (Brethine Inj) 1 mg UNSCH PRN SQ 08/06/17 09:15 (Trandate Inj) 20 mg Q15M PRN IV PUSH 08/06/17 16:45 08/12/17 00:50 (Apresoline Inj) 10 mg Q30M PRN IV PUSH 08/06/17 16:45 08/11/17 15:03 Potassium Chloride 100 ml @ 50 mls/hr Q2H PRN IV 08/06/17 16:45 Potassium Chloride 100 ml @ 50 mls/hr Q2H PRN IV 08/06/17 16:45 (K-Lyte Cl Eff) 50 meq UNSCH PRN PO 08/06/17 16:45 Potassium Chloride 100 ml @ 25 mls/hr UNSCH PRN IV 08/06/17 16:45 08/07/17 00:24 Potassium Chloride 100 ml @ 50 mls/hr Q2H PRN IV 08/06/17 16:45 08/08/17 05:39 Magnesium Sulfate 4 gm/Sodium Chloride 100 ml @ 50 mls/hr UNSCH PRN IV 08/06/17 16:45 (Mag-Ox) 800 mg UNSCH PRN PO 08/06/17 16:45 Magnesium Sulfate 2 gm/Sodium Chloride 100 ml @ 50 mls/hr UNSCH PRN IV 08/06/17 16:45 08/07/17 06:06 (K-Phos) 2,000 mg Q4H PRN PO 08/06/17 16:45 Sodium Phosphate 30 mmol/Sodium Chloride 250 ml @ 42 mls/hr UNSCH PRN IV 08/06/17 16:45 (K-Phos) 2,000 mg UNSCH PRN PO/TUBE 08/06/17 16:45 Potassium Phosphate 30 mmol/ Sodium Chloride 260 ml @ 42 mls/hr UNSCH PRN IV 08/06/17 16:45 (Peridex 0.12% Liq) 15 ml BID@08,20 MT 08/06/17 20:00 08/10/17 09:02 (D50w (Vial) Inj) 25 ml UNSCH PRN IV PUSH 08/06/17 16:45 (Duoneb Neb) 1 ampule Q2HR NEB PRN INH 08/06/17 16:45 (Zofran Inj) 4 mg Q6H PRN IV PUSH 08/06/17 16:45 08/13/17 09:22 Miscellaneous Information 1 Q361D XX 08/06/17 16:45 (Chlorhexidine 2% Cloth) Taper DAILY@04 TOP 08/07/17 04:00 08/03/18 03:59 08/12/17 04:00 (Chlorhexidine 2% Cloth) 3 pack UNSCH PRN TOP 08/06/17 16:45 (Rhianna-Colace) 1 tab BID PO 08/06/17 21:00 08/13/17 09:06 (Milk Of Magnesia Liq) 30 ml Q12H PRN PO 08/06/17 16:45 (Lacrilube Opht Oint) 1 applic Q4H PRN EACH EYE 08/06/17 16:45 08/07/17 23:51 (NS Flush) 2 ml BID IV FLUSH 08/06/17 21:00 08/13/17 09:06 (NS Flush) 2 ml UNSCH PRN IV FLUSH 08/06/17 16:45 Miscellaneous Information 0 ml @ 0 mls/hr UNSCH IV 08/06/17 16:45 (Coreg) 3.125 mg Q12HR PO 08/10/17 09:00 08/13/17 09:06 (Lipitor) 40 mg HS PO 08/10/17 21:00 08/12/17 20:25 Ceftriaxone Sodium 2000 mg/ Sodium Chloride 100 ml @ 200 mls/hr Q24H IV 08/10/17 09:00 08/16/17 10:00 08/13/17 09:06 (Pepcid) 20 mg BID PO 08/10/17 21:00 08/13/17 09:07 (Heparin Inj) 5,000 units UNSCH PRN IV PUSH 08/10/17 19:15 (Heparin Inj) 2,500 units UNSCH PRN IV PUSH 08/10/17 19:15 08/13/17 06:31 Heparin Sodium (Porcine) 73040 units/Sodium Chloride 252.5 ml @ 10.1 mls/hr TITRATE PRN IV 08/10/17 15:00 08/13/17 12:53 (Duoneb Neb) 1 ampule Q4HR NEB INH 08/10/17 16:00 08/13/17 08:32 (Lasix Inj) 40 mg BID@,18 IV PUSH 08/10/17 18:00 08/13/17 09:07 (K-Lyte Cl Eff) 25 meq DAILY PO 08/10/17 14:45 08/13/17 09:07 (Melatonin) 5 mg HS PO 08/11/17 21:00 08/12/17 20:25 (ZyPREXA ZYDIS ODT) 5 mg Q24H PRN PO 08/11/17 23:00 (Ecotrin Ec) 325 mg DAILY PO 08/13/17 09:00 08/13/17 09:07 (Prinivil) 20 mg DAILY PO 08/13/17 09:00 08/13/17 09:06 Vital Signs / I&O Vital Signs Date Time Temp Pulse Resp B/P (MAP) Pulse Ox O2 Delivery O2 Flow Rate FiO2 08/13/17 13:00 70 08/13/17 12:00 73 08/13/17 11:00 71 08/13/17 11:00 98.6 74 19 132/78 (96) 96 08/13/17 11:00 96 Nasal Cannula 2.00 08/13/17 10:00 78 08/13/17 09:00 80 08/13/17 09:00 80 158/88 (111) 100 08/13/17 08:32 98 Nasal Cannula 2.00 08/13/17 08:00 98 08/13/17 07:00 97.7 73 20 148/81 (103) 96 08/13/17 07:00 87 08/13/17 07:00 96 Nasal Cannula 2.00 08/13/17 06:16 70 08/13/17 05:20 81 08/13/17 04:41 90 08/13/17 03:20 98.7 80 19 143/77 (99) 94 08/13/17 03:20 87 08/13/17 03:20 Nasal Cannula 2.00 08/13/17 02:00 87 08/13/17 01:05 84 08/12/17 23:40 Nasal Cannula 2.00 08/12/17 23:40 79 08/12/17 23:40 98.2 79 19 136/78 (97) 93 08/12/17 19:47 96 Nasal Cannula 2.00 08/12/17 19:20 86 08/12/17 19:20 Nasal Cannula 2.00 08/12/17 19:20 98.0 79 18 119/74 (89) 96 08/12/17 15:00 99.1 94 16 131/57 (81) 95 08/12/17 15:00 95 Nasal Cannula 2.00 08/12/17 15:00 88 I/O 08/12/17 08/12/17 08/12/17 08/13/17 08/13/17 08/13/17 07:00 15:00 23:00 07:00 15:00 23:00 Intake Total 200 ml 100 ml 640 ml 480 ml 100 ml Output Total 2800 ml 1800 ml Balance -2600 ml 100 ml -1160 ml 480 ml 100 ml Intake Oral 200 ml 240 ml 480 ml IV Total 100 ml 400 ml 100 ml Output Urine Total 2800 ml 1800 ml # Voids 3 # Bowel Movements 0 0 0 Physical Exam at bedside - patient fed himself after she cut up his meat alert but encephalopathic chest- few basilar rales CV S1S2 RRR Left groin eccymotic Hernan edema. Pedal pulses normal. Laboratory Laboratory Tests Test 08/12/17 20:08 08/13/17 04:44 08/13/17 13:14 Activated Partial Thromboplast Time 26.1 SEC 28.9 SEC White Blood Count 7.2 TH/MM3 Red Blood Count 3.68 MIL/MM3 Hemoglobin 9.5 GM/DL Hematocrit 29.5 % Mean Corpuscular Volume 80.1 FL Mean Corpuscular Hemoglobin 25.7 PG Mean Corpuscular Hemoglobin Concent 32.1 % Red Cell Distribution Width 20.4 % Platelet Count 179 TH/MM3 Mean Platelet Volume 9.1 FL Blood Urea Nitrogen 24 MG/DL Creatinine 0.68 MG/DL Random Glucose 100 MG/DL Calcium Level 8.5 MG/DL Sodium Level 142 MEQ/L Potassium Level 2.7 MEQ/L Chloride Level 102 MEQ/L Carbon Dioxide Level 32.7 MEQ/L Anion Gap 7 MEQ/L Estimat Glomerular Filtration Rate 117 ML/MIN Magnesium Level 1.8 MG/DL Imaging Last 24 hours Impressions Lower Extremity Ultrasound 08/13/17 0000 Signed Impressions: Service Date/Time: Sunday, August 13, 2017 10:53 - CONCLUSION: Venous mapping study as described. Hussain Cuba MD Lower Extremity Ultrasound 08/13/17 0000 Signed Impressions: Service Date/Time: Sunday, August 13, 2017 10:40 - CONCLUSION: 1. Nonocclusive thrombus in the right common femoral vein which is partially compressible. 2. No evidence of left lower extremity venous thrombosis. Hussain Cuba MD Carotid Artery Ultrasound 08/13/17 0000 Signed Impressions: Service Date/Time: Sunday, August 13, 2017 11:13 - CONCLUSION: 1. Evidence of 50-69%% diameter stenosis in the right internal carotid artery by velocity criteria with significant plaque in the right carotid bulb and proximal internal carotid artery. 2. Mild to moderate plaque in the left carotid bulb with less than 50%% diameter stenosis by velocity criteria. Hussain Cuba MD Assessment and Plan Problem List: (1) Cardiopulmonary arrest with successful resuscitation ICD Codes: I46.9 - Cardiac arrest, cause unspecified Status: Acute (2) NSTEMI (non-ST elevated myocardial infarction) ICD Codes: I21.4 - Non-ST elevation (NSTEMI) myocardial infarction (3) On mechanically assisted ventilation ICD Codes: Z99.11 - Dependence on respirator [ventilator] status (4) Anoxic encephalopathy ICD Codes: G93.1 - Anoxic brain damage, not elsewhere classified Plan: slowly improving. CABG on hold Steven Gandhi MD Aug 13, 2017 13:52
[2017-08-13 14:18] LABS: BICARBONATE 33.9 MEQ/L (21.0-32.0); CREATININE 0.98 MG/DL (0.60-1.30); MAGNESIUM 1.9 MG/DL (1.5-2.5)
[2017-08-13] MEDS ORDERED: POTASSIUM CHLORIDE 25 MEQ EFFERVESCENT TAB PO SCH (21:00)
[2017-08-13] MEDS: MELATONIN 5 MG TAB PO SCH (21:16)
[2017-08-13] MEDS: ATORVASTATIN 40 MG TAB PO SCH (21:16)
[2017-08-14] VITALS (27 sets, daily range): BP systolic 118–137; BP diastolic 68–81; PULSE 65–82; RESP 15–20; TEMP 98.4–98.8; O2SAT 92–97
[2017-08-14] MEDS: RESP: ALBUTEROL 2.5 MG/IPRATROPIUM 0.5 MG NEB (SCH) INH ×6 (00:02→20:31)
[2017-08-14] MEDS: HEPARIN INJ 25,000 UNITS in SODIUM CHLOR 0.9% 250 ML INJ 250 ML IV PRN (01:45)
[2017-08-14 03:25] LABS: AUTOMATED NEUTROPHIL # 4.4 TH/MM3 (1.8-7.7); BASOPHIL % 0.4 % (0.0-2.0); EOSINOPHIL # 0.2 TH/MM3 (0-0.4); EOSINOPHIL % 2.2 % (0.0-4.0); HEMATOCRIT 28.1 % (39.0-51.0); HEMOGLOBIN 9.2 GM/DL (13.0-17.0); LYMPH % 21.6 % (9.0-44.0); LYMPHOCYTE # 1.7 TH/MM3 (1.0-4.8); MEAN CELL VOLUME 79.9 FL (80.0-100.0); MEAN CORPUSCULAR HEMOGLOBIN 26.1 PG (27.0-34.0); MEAN CORPUSCULAR HGB CONC 32.7 % (32.0-36.0); MEAN PLATELET VOLUME 9.1 FL (7.0-11.0); MONOCYTE # 1.5 TH/MM3 (0-0.9); NEUT % 56.8 % (16.0-70.0); PLATELET COUNT 191 TH/MM3 (150-450); RED BLOOD COUNT 3.51 MIL/MM3 (4.50-5.90); RED CELL DISTRIBUTION WIDTH 20.2 % (11.6-17.2); WHITE BLOOD COUNT 7.8 TH/MM3 (4.0-11.0)
[2017-08-14 03:49] LABS: CALCIUM 8.5 MG/DL (8.5-10.1); CREATININE 0.71 MG/DL (0.60-1.30); MAGNESIUM 1.7 MG/DL (1.5-2.5)
[2017-08-14] MEDS: CHLORHEXIDINE GLUCONATE 2 % 1 PACK (2 CLOTHS) TOP SCH (04:00)
[2017-08-14] MEDS: FAMOTIDINE 20 MG TAB PO SCH ×2 (09:00→20:46)
--- NOTE | 2017-08-14 09:02 | HHI.PR ---
Subjective Remarks F/U CAD and encephalopathy. Called by RN 2/ enlarging left groin hematoma on heparin drip. Cardiology ordered fem stop and held heparin drip, Restraints placed on KATRIN dye RN. Patient has no complaints denies chest pain and shortness of breath. He is awake but confused. He is following simple commands Objective Vitals Vital Signs Date Time Temp Pulse Resp B/P (MAP) Pulse Ox O2 Delivery O2 Flow Rate FiO2 08/14/17 06:19 70 08/14/17 05:28 69 08/14/17 04:30 71 08/14/17 03:38 Nasal Cannula 2.00 08/14/17 03:38 98.4 78 19 130/81 (97) 93 08/14/17 03:38 72 08/14/17 02:19 65 08/14/17 01:45 69 08/14/17 00:30 68 08/13/17 23:30 Nasal Cannula 2.00 08/13/17 23:30 66 08/13/17 23:30 98.7 66 20 137/77 (97) 94 08/13/17 22:22 74 08/13/17 21:40 70 08/13/17 20:18 95 Nasal Cannula 2.00 08/13/17 20:11 77 08/13/17 19:30 Nasal Cannula 2.00 08/13/17 19:30 98.3 73 20 128/75 (92) 95 08/13/17 19:30 75 08/13/17 18:00 81 08/13/17 17:00 80 08/13/17 16:00 75 08/13/17 15:00 79 08/13/17 15:00 98.1 68 19 104/67 (79) 99 08/13/17 15:00 99 Nasal Cannula 2.00 08/13/17 14:00 70 08/13/17 13:00 70 08/13/17 12:00 73 08/13/17 11:00 71 08/13/17 11:00 98.6 74 19 132/78 (96) 96 08/13/17 11:00 96 Nasal Cannula 2.00 08/13/17 10:00 78 08/13/17 09:00 80 08/13/17 09:00 80 158/88 (111) 100 I/O 3/31/18 3/3108/13/17 08/14/17 08/14/17 08/14/17 07:00 15:00 23:00 07:00 15:00 23:00 Intake Total 480 ml 100 ml 910 ml 480 ml Output Total 1300 ml 875 ml Balance 480 ml 100 ml -390 ml -395 ml Intake Oral 480 ml 720 ml 480 ml IV Total 100 ml 190 ml Output Urine Total 1300 ml 875 ml # Voids 3 3 # Bowel Movements 0 Result Diagram: 08/14/17 0251 08/14/17 0251 Imaging Last Impressions Lower Extremity Ultrasound 08/13/17 0000 Signed Impressions: Service Date/Time: Sunday, August 13, 2017 10:53 - CONCLUSION: Venous mapping study as described. Hussain Cuba MD Carotid Artery Ultrasound 08/13/17 0000 Signed Impressions: Service Date/Time: Sunday, August 13, 2017 11:13 - CONCLUSION: 1. Evidence of 50-69%% diameter stenosis in the right internal carotid artery by velocity criteria with significant plaque in the right carotid bulb and proximal internal carotid artery. 2. Mild to moderate plaque in the left carotid bulb with less than 50%% diameter stenosis by velocity criteria. Hussain Cuba MD Chest X-Ray 08/11/17 0600 Signed Impressions: Service Date/Time: July 03:51 - CONCLUSION: Minimal hazy density in right lung has improved. Ponce Balderas MD Brain MRI 08/09/17 0000 Signed Impressions: Service Date/Time: Wednesday, August 09, 2017 15:52 - CONCLUSION: Normal examination. Moisés Pineda MD Head CT 08/06/17 0000 Signed Impressions: Service Date/Time: Sunday, August 06, 2017 14:10 - CONCLUSION: No acute intracranial disease. Moisés Olvera MD Objective Remarks GENERAL: Middle-aged male, lying in bed, awake, confused. HEENT: Normocephalic. Atraumatic. Pupils are 3 mm, reactive. NECK: Trachea is midline. mild elevation of JVD. CHEST: Equal chest rise. nc o2. CARDIOVASCULAR: NSR, regular rhythm. ABDOMEN: Soft, nontender, nondistended. no guarding. MUSCULOSKELETAL: Left inguinal with fem stop. Restraints LLE. NVI NEUROLOGICAL: Awake and alert. Follows commands. oriented to person only confused. Procedures Cardiac catheterization, arterial line, femoral cooling catheter A/P Problem List: (1) NSTEMI (non-ST elevated myocardial infarction) ICD Code: I21.4 - Non-ST elevation (NSTEMI) myocardial infarction (2) Cardiopulmonary arrest with successful resuscitation ICD Code: I46.9 - Cardiac arrest, cause unspecified Status: Acute Assessment and Plan 62-year-old male with out of hospital cardiac arrest and multivessel coronary disease. Now extubated with improving neuro exam, although mild encephalopathy persists and confused. CT surgery consulted for consideration of CABG. Plan by systems: Neurologic: Hypoxic ischemic encephalopathy - Persistent. Completed hypothermic protocol. Improving neuro exam, GCS 14. MRI negative for any significant anoxic brain injury continue frequent neuro checks melatonin for sleep good day/night reorientation ST for cognitive tx Respiratory: Acute hypoxic hypercarbic respiratory failure-resolved. Pulmonary edema. Resolving Wean oxygen for goal spo2 > 90% Sputum culture staph aureus aggressive pulmonary toilet. Switch to p.o. Lasix Cardiovascular: Status post out of hospital cardiac arrest Ventricular fibrillation ACS Left inguinal hematoma. Platelet count within normal limits. Continue fem stop. Heparin drip on hold Serial troponins peaked at 29. Cardiology Dr. Boateng. [facility] 08/11: multivessel CAD. Continue aspirin, Lipitor (monitor liver enzymes), Coreg and lisinopril. Heparin drip (on hold secondary to enlarging left inguinal hematoma) CTS for CABG pending improvement of mental status Renal: Acute kidney injury d/c hunter Strict I/Os Creatinine has normalized Continue diuresis FEN/GI: advance diet per speech. Hypokalemia. Aggressive replacement with 40 MEQ po potassium BID and repeat BMP and magnesium Heme/ID: Sputum culture growing staph aureus. Placed on Rocephin 2 g every 24 hours: plan for full 7 day course for community acquired aspiration. anticipated stop date 08/15. Chest x-ray no acute findings Endocrine: Hyperglycemia of critical illness --Improved discontinue sliding scale Prophylaxis: GI Prophylaxis Pepcid DVT Prophylaxis -- SCDs heparin(on hold) Duglas Hooker MD Aug 14, 2017 09:02
[2017-08-14] MEDS: LISINOPRIL 20 MG TAB PO SCH (09:42)
[2017-08-14] MEDS: DOCUSATE SODIUM 50 MG/SENNA 8.6 MG TAB PO SCH ×2 (09:42→20:46)
[2017-08-14] MEDS: ASPIRIN EC 325 MG TABEC PO SCH (09:42)
[2017-08-14] MEDS: POTASSIUM CHLORIDE 20 MEQ CONTROLLED RELEASE TAB PO SCH ×2 (09:42→20:45)
[2017-08-14] MEDS: CARVEDILOL 3.125 MG TAB PO SCH (09:42)
[2017-08-14] MEDS: SODIUM CHLORIDE 0.9% FLUSH 10 ML FLUSH IV FLUSH SCH ×2 (09:43→20:46)
[2017-08-14] MEDS: FUROSEMIDE 40 MG TAB PO SCH (09:43)
[2017-08-14] MEDS: CHLORHEXIDINE 0.12% (ORAL KIT) 15 ML CUP MT SCH ×2 (09:43→20:00)
[2017-08-14] MEDS: cefTRIAXone INJ 2,000 MG in SODIUM CHLORIDE 0.9% INJ 100 ML IV SCH (09:43)
--- NOTE | 2017-08-14 16:44 | PD.CARD.PN ---
Subjective Subjective Remarks no angina, no complaints Objective Medications Current Medications Medications (Trade) Dose Ordered Sig/Rogerio Route Start Time Stop Time Status Last Admin (Brethine Inj) 1 mg UNSCH PRN SQ 08/06/17 09:15 (Trandate Inj) 20 mg Q15M PRN IV PUSH 08/06/17 16:45 08/12/17 00:50 (Apresoline Inj) 10 mg Q30M PRN IV PUSH 08/06/17 16:45 08/11/17 15:03 (Peridex 0.12% Liq) 15 ml BID@08,20 MT 08/06/17 20:00 08/10/17 09:02 (D50w (Vial) Inj) 25 ml UNSCH PRN IV PUSH 08/06/17 16:45 (Duoneb Neb) 1 ampule Q2HR NEB PRN INH 08/06/17 16:45 (Zofran Inj) 4 mg Q6H PRN IV PUSH 08/06/17 16:45 08/13/17 09:22 Miscellaneous Information 1 Q361D XX 08/06/17 16:45 (Chlorhexidine 2% Cloth) Taper DAILY@04 TOP 08/07/17 04:00 08/03/18 03:59 08/12/17 04:00 (Chlorhexidine 2% Cloth) 3 pack UNSCH PRN TOP 08/06/17 16:45 (Rhianna-Colace) 1 tab BID PO 08/06/17 21:00 08/14/17 09:42 (Milk Of Magnesia Liq) 30 ml Q12H PRN PO 08/06/17 16:45 (Lacrilube Opht Oint) 1 applic Q4H PRN EACH EYE 08/06/17 16:45 08/07/17 23:51 (NS Flush) 2 ml BID IV FLUSH 08/06/17 21:00 08/14/17 09:43 (NS Flush) 2 ml UNSCH PRN IV FLUSH 08/06/17 16:45 Miscellaneous Information 0 ml @ 0 mls/hr UNSCH IV 08/06/17 16:45 (Coreg) 3.125 mg Q12HR PO 08/10/17 09:00 08/14/17 09:42 (Lipitor) 40 mg HS PO 08/10/17 21:00 08/13/17 21:16 Ceftriaxone Sodium 2000 mg/ Sodium Chloride 100 ml @ 200 mls/hr Q24H IV 08/10/17 09:00 08/16/17 10:00 08/14/17 09:43 (Pepcid) 20 mg BID PO 08/10/17 21:00 08/13/17 21:16 (Heparin Inj) 5,000 units UNSCH PRN IV PUSH 08/10/17 19:15 Future Hold (Heparin Inj) 2,500 units UNSCH PRN IV PUSH 08/10/17 19:15 Future Hold 08/13/17 21:17 Heparin Sodium (Porcine) 49310 units/Sodium Chloride 252.5 ml @ 10.1 mls/hr TITRATE PRN IV 08/10/17 15:00 Future Hold 08/14/17 01:45 (Melatonin) 5 mg HS PO 08/11/17 21:00 08/13/17 21:16 (ZyPREXA ZYDIS ODT) 5 mg Q24H PRN PO 08/11/17 23:00 (Ecotrin Ec) 325 mg DAILY PO 08/13/17 09:00 08/14/17 09:42 (Prinivil) 20 mg DAILY PO 08/13/17 09:00 08/14/17 09:42 (Duoneb Neb) 1 ampule Q4HR NEB INH 08/14/17 12:00 08/14/17 12:15 (KCl) 40 meq Q12HR PO 08/14/17 09:00 08/14/17 23:00 08/14/17 09:42 (Lasix) 40 mg DAILY PO 08/14/17 09:00 08/14/17 09:43 (KCl) 40 meq DAILY PO 08/15/17 09:00 Magnesium Sulfate/ Dextrose 100 ml @ 100 mls/hr Q1H IV 08/14/17 16:30 08/14/17 18:29 Vital Signs / I&O Vital Signs Date Time Temp Pulse Resp B/P (MAP) Pulse Ox O2 Delivery O2 Flow Rate FiO2 08/14/17 16:00 70 08/14/17 15:00 94 Room Air 08/14/17 15:00 72 08/14/17 15:00 98.4 72 20 120/68 (85) 94 08/14/17 14:00 79 08/14/17 13:00 73 08/14/17 12:00 78 08/14/17 11:00 95 Room Air 08/14/17 11:00 68 08/14/17 11:00 98.4 67 19 118/68 (85) 95 08/14/17 10:00 73 08/14/17 09:00 74 08/14/17 08:00 74 08/14/17 07:00 96 Nasal Cannula 2.00 08/14/17 07:00 74 08/14/17 07:00 98.4 70 20 136/79 (98) 96 08/14/17 06:19 70 08/14/17 05:28 69 08/14/17 04:30 71 08/14/17 03:38 Nasal Cannula 2.00 08/14/17 03:38 98.4 78 19 130/81 (97) 93 08/14/17 03:38 72 08/14/17 02:19 65 08/14/17 01:45 69 08/14/17 00:30 68 08/13/17 23:30 Nasal Cannula 2.00 08/13/17 23:30 66 08/13/17 23:30 98.7 66 20 137/77 (97) 94 08/13/17 22:22 74 08/13/17 21:40 70 08/13/17 20:18 95 Nasal Cannula 2.00 08/13/17 20:11 77 08/13/17 19:30 Nasal Cannula 2.00 08/13/17 19:30 98.3 73 20 128/75 (92) 95 08/13/17 19:30 75 08/13/17 18:00 81 08/13/17 17:00 80 I/O 08/13/17 08/13/17 08/13/17 08/14/17 08/14/17 08/14/17 07:00 15:00 23:00 07:00 15:00 23:00 Intake Total 480 ml 100 ml 910 ml 480 ml Output Total 1300 ml 875 ml Balance 480 ml 100 ml -390 ml -395 ml Intake Oral 480 ml 720 ml 480 ml IV Total 100 ml 190 ml Output Urine Total 1300 ml 875 ml # Voids 3 3 # Bowel Movements 0 Physical Exam at bedside - patient fed himself after she cut up his meat alert but encephalopathic chest- crackles both bases CV S1S2 RRR Left groin eccymotic. Heparin stopped again for growing hematoma - hematoma extends laterally and inferiorly/ moderate Hernan edema. Pedal pulses normal. Laboratory Laboratory Tests Test 08/13/17 19:57 08/14/17 02:51 08/14/17 11:00 Activated Partial Thromboplast Time 32.2 SEC 27.8 SEC 20.2 SEC White Blood Count 7.8 TH/MM3 Red Blood Count 3.51 MIL/MM3 Hemoglobin 9.2 GM/DL Hematocrit 28.1 % Mean Corpuscular Volume 79.9 FL Mean Corpuscular Hemoglobin 26.1 PG Mean Corpuscular Hemoglobin Concent 32.7 % Red Cell Distribution Width 20.2 % Platelet Count 191 TH/MM3 Mean Platelet Volume 9.1 FL Neutrophils (%) (Auto) 56.8 % Lymphocytes (%) (Auto) 21.6 % Monocytes (%) (Auto) 19.0 % Eosinophils (%) (Auto) 2.2 % Basophils (%) (Auto) 0.4 % Neutrophils # (Auto) 4.4 TH/MM3 Lymphocytes # (Auto) 1.7 TH/MM3 Monocytes # (Auto) 1.5 TH/MM3 Eosinophils # (Auto) 0.2 TH/MM3 Basophils # (Auto) 0.0 TH/MM3 CBC Comment DIFF FINAL Differential Comment Blood Urea Nitrogen 17 MG/DL Creatinine 0.71 MG/DL Random Glucose 92 MG/DL Calcium Level 8.5 MG/DL Magnesium Level 1.7 MG/DL Sodium Level 141 MEQ/L Potassium Level 3.3 MEQ/L Chloride Level 102 MEQ/L Carbon Dioxide Level 33.0 MEQ/L Anion Gap 6 MEQ/L Estimat Glomerular Filtration Rate 112 ML/MIN Assessment and Plan Problem List: (1) Cardiopulmonary arrest with successful resuscitation ICD Codes: I46.9 - Cardiac arrest, cause unspecified Status: Acute (2) NSTEMI (non-ST elevated myocardial infarction) ICD Codes: I21.4 - Non-ST elevation (NSTEMI) myocardial infarction (3) On mechanically assisted ventilation ICD Codes: Z99.11 - Dependence on respirator [ventilator] status (4) Anoxic encephalopathy ICD Codes: G93.1 - Anoxic brain damage, not elsewhere classified (5) Multi-vessel coronary artery stenosis ICD Codes: I25.10 - Atherosclerotic heart disease of [place] coronary artery without angina pectoris Plan: I reviewed his films. LAD does not look fixable with PCI. LCX stentable but complex due to bifurcation Assessment and Plan Change carvedilol to metoprolol. Add NTP. CABG doesn't look feasible with his encephalopathy. Spoke to . Leaving him off heparin due to recurrent left groin bleeding. Dr. Boateng back tomorrow. Prognosis poor. Steven Gandhi MD Aug 14, 2017 16:44
[2017-08-14] MEDS: MAGNESIUM SULFATE 1 GM PREMIX 100 ML IV SCH ×2 (16:45→17:39)
--- NOTE | 2017-08-14 17:29 | RADRPT ---
EXAM DATE/TIME: 08/14/2017 17:12 [place] COMPARISON: CHEST SINGLE AP, August 11, 2017, 3:51. INDICATIONS : Short of breath. MEDICAL HISTORY : Carcinoma, prostatic. Hypertension SURGICAL HISTORY : Gastric bypass. ENCOUNTER: Subsequent ACUITY: 1 week PAIN SCORE: 0/10 LOCATION: Bilateral chest FINDINGS: Lungs are hypoaerated. There is persistent mild right infrahilar airspace disease. No new pulmonary a bnormalities noted. Heart and mediastinal structures stable. CONCLUSION: Stable chest with persistent minimal right basilar airspace disease no other acute findings. Russ Robledo MD on August 14, 2017 at 17:26 Board Certified Radiologist. This report was verified electronically.
[2017-08-14] MEDS: NITROGLYCERIN 2% OINT 1 GM PACKET TOPICAL SCH (17:38)
[2017-08-14] MEDS: METOPROLOL TARTRATE 25 MG TAB PO SCH (20:46)
[2017-08-14] MEDS: MELATONIN 5 MG TAB PO SCH (20:46)
[2017-08-14] MEDS: ATORVASTATIN 40 MG TAB PO SCH (20:46)
[2017-08-15] VITALS (29 sets, daily range): BP systolic 129–162; BP diastolic 66–95; PULSE 66–100; RESP 15–20; TEMP 96.6–99.5; O2SAT 94–96
[2017-08-15] MEDS: RESP: ALBUTEROL 2.5 MG/IPRATROPIUM 0.5 MG NEB (SCH) INH ×7 (00:03→23:37)
[2017-08-15] MEDS: CHLORHEXIDINE GLUCONATE 2 % 1 PACK (2 CLOTHS) TOP SCH (04:00)
[2017-08-15 04:38] LABS: AUTOMATED NEUTROPHIL # 7.4 TH/MM3 (1.8-7.7); BASOPHIL % 0.2 % (0.0-2.0); EOSINOPHIL # 0.1 TH/MM3 (0-0.4); EOSINOPHIL % 0.7 % (0.0-4.0); HEMATOCRIT 27.5 % (39.0-51.0); HEMOGLOBIN 8.9 GM/DL (13.0-17.0); LYMPH % 17.1 % (9.0-44.0); LYMPHOCYTE # 1.8 TH/MM3 (1.0-4.8); MEAN CORPUSCULAR HEMOGLOBIN 26.3 PG (27.0-34.0); MEAN CORPUSCULAR HGB CONC 32.5 % (32.0-36.0); MONO % 11.2 % (0.0-8.0); MONOCYTE # 1.2 TH/MM3 (0-0.9); NEUT % 70.8 % (16.0-70.0); PLATELET COUNT 223 TH/MM3 (150-450); RED BLOOD COUNT 3.39 MIL/MM3 (4.50-5.90); RED CELL DISTRIBUTION WIDTH 20.9 % (11.6-17.2); WHITE BLOOD COUNT 10.5 TH/MM3 (4.0-11.0)
[2017-08-15 05:03] LABS: BICARBONATE 33.1 MEQ/L (21.0-32.0); CALCIUM 8.4 MG/DL (8.5-10.1); CREATININE 0.6 MG/DL (0.60-1.30)
[2017-08-15] MEDS: NITROGLYCERIN 2% OINT 1 GM PACKET TOPICAL SCH ×4 (05:55→17:26)
[2017-08-15] MEDS: FAMOTIDINE 20 MG TAB PO SCH ×2 (09:00→21:28)
[2017-08-15] MEDS: cefTRIAXone INJ 2,000 MG in SODIUM CHLORIDE 0.9% INJ 100 ML IV SCH (09:43)
[2017-08-15] MEDS: DOCUSATE SODIUM 50 MG/SENNA 8.6 MG TAB PO SCH ×2 (09:44→21:28)
[2017-08-15] MEDS: SODIUM CHLORIDE 0.9% FLUSH 10 ML FLUSH IV FLUSH SCH ×2 (09:44→21:28)
[2017-08-15] MEDS: LISINOPRIL 20 MG TAB PO SCH (09:44)
[2017-08-15] MEDS: METOPROLOL TARTRATE 25 MG TAB PO SCH (09:44)
[2017-08-15] MEDS: POTASSIUM CHLORIDE 20 MEQ CONTROLLED RELEASE TAB PO SCH (09:44)
[2017-08-15] MEDS: CHLORHEXIDINE 0.12% (ORAL KIT) 15 ML CUP MT SCH ×2 (09:45→20:00)
--- NOTE | 2017-08-15 09:45 | HHI.PR ---
Subjective Remarks Follow-up encephalopathy. Remains confused but calm and pleasant denies chest pain discussed with nursing Objective Vitals Vital Signs Date Time Temp Pulse Resp B/P (MAP) Pulse Ox O2 Delivery O2 Flow Rate FiO2 08/15/17 09:00 97 08/15/17 08:00 81 08/15/17 07:48 96 21 08/15/17 07:00 85 08/15/17 07:00 95 Nasal Cannula 2.00 08/15/17 07:00 96.6 72 19 156/78 (104) 95 08/15/17 06:00 76 08/15/17 05:17 71 08/15/17 04:00 81 08/15/17 03:53 94 Nasal Cannula 2.00 08/15/17 03:53 98.8 75 16 150/79 (102) 94 08/15/17 03:00 71 08/15/17 02:00 70 08/15/17 01:00 78 08/15/17 00:00 72 08/14/17 23:27 93 Nasal Cannula 2.00 08/14/17 23:27 98.8 72 15 137/80 (99) 93 08/14/17 23:00 68 08/14/17 22:00 68 08/14/17 21:00 76 08/14/17 20:31 97 Nasal Cannula 2.00 08/14/17 20:00 82 08/14/17 19:14 92 Nasal Cannula 2.00 08/14/17 19:14 98.4 77 16 133/72 (92) 92 08/14/17 19:00 74 08/14/17 18:00 74 08/14/17 17:00 76 08/14/17 16:00 70 08/14/17 15:00 94 Room Air 08/14/17 15:00 72 08/14/17 15:00 98.4 72 20 120/68 (85) 94 08/14/17 14:00 79 08/14/17 13:00 73 08/14/17 12:00 78 08/14/17 11:00 95 Room Air 08/14/17 11:00 68 08/14/17 11:00 98.4 67 19 118/68 (85) 95 08/14/17 10:00 73 I/O 08/14/17 08/14/17 08/14/17 08/15/1708/15/18 4/2/18 07:00 15:00 23:00 07:00 15:00 23:00 Intake Total 480 ml 1020 ml 240 ml Output Total 875 ml 700 ml 100 ml Balance -395 ml 320 ml 140 ml Intake Oral 480 ml 720 ml 240 ml IV Total 300 ml Output Urine Total 875 ml 700 ml 100 ml # Voids 3 3 Result Diagram: 08/15/17 0350 08/15/17 0350 Imaging Last Impressions Chest X-Ray 08/14/17 0000 Signed Impressions: Service Date/Time: Monday, August 14, 2017 17:12 - CONCLUSION: Stable chest with persistent minimal right basilar airspace disease no other acute findings. Russ Rolbedo MD Lower Extremity Ultrasound 08/13/17 0000 Signed Impressions: Service Date/Time: Sunday, August 13, 2017 10:53 - CONCLUSION: Venous mapping study as described. Hussain Cuba MD Carotid Artery Ultrasound 08/13/17 0000 Signed Impressions: Service Date/Time: Sunday, August 13, 2017 11:13 - CONCLUSION: 1. Evidence of 50-69%% diameter stenosis in the right internal carotid artery by velocity criteria with significant plaque in the right carotid bulb and proximal internal carotid artery. 2. Mild to moderate plaque in the left carotid bulb with less than 50%% diameter stenosis by velocity criteria. Hussain Cuba MD Brain MRI 08/09/17 0000 Signed Impressions: Service Date/Time: Wednesday, August 09, 2017 15:52 - CONCLUSION: Normal examination. Moisés Pineda MD Head CT 08/06/17 0000 Signed Impressions: Service Date/Time: Sunday, August 06, 2017 14:10 - CONCLUSION: No acute intracranial disease. Moissé Olvera MD Objective Remarks GENERAL: Middle-aged male, lying in bed, awake, confused. HEENT: Normocephalic. Atraumatic. Pupils are 3 mm, reactive. NECK: Trachea is midline. mild elevation of JVD. CHEST: Equal chest rise. nc o2. CARDIOVASCULAR: NSR, regular rhythm. ABDOMEN: Soft, nontender, nondistended. no guarding. MUSCULOSKELETAL: Left inguinal with bruising. NVI NEUROLOGICAL: Awake and alert. Follows commands. Oriented to person only stable confusion Procedures Cardiac catheterization, arterial line, femoral cooling catheter A/P Problem List: (1) NSTEMI (non-ST elevated myocardial infarction) ICD Code: I21.4 - Non-ST elevation (NSTEMI) myocardial infarction (2) Cardiopulmonary arrest with successful resuscitation ICD Code: I46.9 - Cardiac arrest, cause unspecified Status: Acute Assessment and Plan 62-year-old male with out of hospital cardiac arrest and multivessel coronary disease. Now extubated with improving neuro exam, although mild encephalopathy persists and confused. CT surgery consulted for consideration of CABG. Plan by systems: Neurologic: Hypoxic ischemic encephalopathy - Persistent. Completed hypothermic protocol. Improving neuro exam, GCS 14. MRI negative for any significant anoxic brain injury continue frequent neuro checks melatonin for sleep good day/night reorientation ST for cognitive tx Respiratory: Acute hypoxic hypercarbic respiratory failure-resolved. Pulmonary edema. Resolving Wean oxygen for goal spo2 > 90% Sputum culture staph aureus aggressive pulmonary toilet. Switch to p.o. Lasix Cardiovascular: Status post out of hospital cardiac arrest Ventricular fibrillation ACS Left inguinal hematoma. Platelet count within normal limits. Status post fem stop. Heparin drip on hold. Stable Serial troponins peaked at 29. Cardiology Dr. Boateng. [facility] 08/11: multivessel CAD. Continue aspirin, Lipitor (monitor liver enzymes), Lopressor and lisinopril. Heparin drip (on hold secondary to enlarging left inguinal hematoma) CTS for CABG pending improvement of mental status PAD with plaque in the right RCA. Continue above-mentioned medications. Per CTS Renal: Acute kidney injury d/c hunter Strict I/Os Creatinine has normalized Continue diuresis FEN/GI: advance diet per speech. Hypokalemia. Status post replacement Heme/ID: Sputum culture growing staph aureus. Placed on Rocephin 2 g every 24 hours: plan for full 7 day course for community acquired aspiration. anticipated stop date 08/15 today then switch to p.o. Ceftin. Repeat chest x-ray in 6 week Endocrine: Hyperglycemia of critical illness --Improved discontinue sliding scale Non-occlusive thrombus right common femoral artery. Patient on aspirin Prophylaxis: GI Prophylaxis Pepcid DVT Prophylaxis -- SCDs heparin(on hold) Discharge Planning Per Dr. Gandhi, CABG may not be feasible with ongoing encephalopathy. Consider transfer to CICU for discharge to rehab Duglas Hooker MD Aug 15, 2017 09:45
[2017-08-15] MEDS: FUROSEMIDE 40 MG TAB PO SCH (09:47)
[2017-08-15] MEDS: ASPIRIN EC 325 MG TABEC PO SCH (09:47)
--- NOTE | 2017-08-15 13:10 | PD.CAR.PN ---
CVT Progress Note Subjective/Hospital Course: p 08/13/17 Patient has been transferred to [facility]U. He remains lethargic and somewhat confused. Speech is slurred and he is very deconditioned. 4/2 pt still reqiores 2 person assist to get OOB high fall risk still somewhat confused, would benefit from rehab placement speech, OT/PT ok to dc to rehab from [facility] standpoint will make appointment with Dr Ortiz in 2-3 weeks for re-evaluation for readiness for surgery Objective: GENERAL: awake , pleasantly confused , very weak SKIN: Warm and dry. HEAD: Normocephalic. EYES: No scleral icterus. No injection or drainage. NECK: Supple, trachea midline. No JVD or lymphadenopathy. CARDIOVASCULAR: Regular rate and rhythm without murmurs, gallops, or rubs. RESPIRATORY: Breath sounds equal bilaterally. No accessory muscle use. GASTROINTESTINAL: Abdomen soft, non-tender, nondistended. MUSCULOSKELETAL: No cyanosis, or edema. BACK: Nontender without obvious deformity. No CVA tenderness. Vital Signs Date Time Temp Pulse Resp B/P (MAP) Pulse Ox O2 Delivery O2 Flow Rate FiO2 08/15/17 12:00 70 08/15/17 11:00 95 Room Air 08/15/17 11:00 68 08/15/17 11:00 98.6 66 20 129/66 (87) 95 08/15/17 10:00 72 08/15/17 09:00 97 08/15/17 08:00 81 08/15/17 07:48 96 21 08/15/17 07:00 85 08/15/17 07:00 95 Nasal Cannula 2.00 08/15/17 07:00 96.6 72 19 156/78 (104) 95 08/15/17 06:00 76 08/15/17 05:17 71 08/15/17 04:00 81 08/15/17 03:53 94 Nasal Cannula 2.00 08/15/17 03:53 98.8 75 16 150/79 (102) 94 08/15/17 03:00 71 08/15/17 02:00 70 08/15/17 01:00 78 08/15/17 00:00 72 08/14/17 23:27 93 Nasal Cannula 2.00 08/14/17 23:27 98.8 72 15 137/80 (99) 93 08/14/17 23:00 68 08/14/17 22:00 68 08/14/17 21:00 76 08/14/17 20:31 97 Nasal Cannula 2.00 08/14/17 20:00 82 08/14/17 19:14 92 Nasal Cannula 2.00 08/14/17 19:14 98.4 77 16 133/72 (92) 92 08/14/17 19:00 74 08/14/17 18:00 74 08/14/17 17:00 76 08/14/17 16:00 70 08/14/17 15:00 94 Room Air 08/14/17 15:00 72 08/14/17 15:00 98.4 72 20 120/68 (85) 94 08/14/17 14:00 79 08/14/17 13:00 73 Labs: Laboratory Tests Test 08/15/17 03:50 White Blood Count 10.5 TH/MM3 (4.0-11.0) Red Blood Count 3.39 MIL/MM3 (4.50-5.90) Hemoglobin 8.9 GM/DL (13.0-17.0) Hematocrit 27.5 % (39.0-51.0) Mean Corpuscular Volume 81.0 FL (80.0-100.0) Mean Corpuscular Hemoglobin 26.3 PG (27.0-34.0) Mean Corpuscular Hemoglobin Concent 32.5 % (32.0-36.0) Red Cell Distribution Width 20.9 % (11.6-17.2) Platelet Count 223 TH/MM3 (150-450) Mean Platelet Volume 9.0 FL (7.0-11.0) Neutrophils (%) (Auto) 70.8 % (16.0-70.0) Lymphocytes (%) (Auto) 17.1 % (9.0-44.0) Monocytes (%) (Auto) 11.2 % (0.0-8.0) Eosinophils (%) (Auto) 0.7 % (0.0-4.0) Basophils (%) (Auto) 0.2 % (0.0-2.0) Neutrophils # (Auto) 7.4 TH/MM3 (1.8-7.7) Lymphocytes # (Auto) 1.8 TH/MM3 (1.0-4.8) Monocytes # (Auto) 1.2 TH/MM3 (0-0.9) Eosinophils # (Auto) 0.1 TH/MM3 (0-0.4) Basophils # (Auto) 0.0 TH/MM3 (0-0.2) CBC Comment DIFF FINAL Differential Comment Blood Urea Nitrogen 13 MG/DL (7-18) Creatinine 0.60 MG/DL (0.60-1.30) Random Glucose 95 MG/DL (74-106) Calcium Level 8.4 MG/DL (8.5-10.1) Magnesium Level 2.0 MG/DL (1.5-2.5) Sodium Level 140 MEQ/L (136-145) Potassium Level 3.8 MEQ/L (3.5-5.1) Chloride Level 102 MEQ/L (98-107) Carbon Dioxide Level 33.1 MEQ/L (21.0-32.0) Anion Gap 5 MEQ/L (5-15) Estimat Glomerular Filtration Rate 136 ML/MIN (>89) Result Diagram: 08/15/17 0350 08/15/17 0350 (1) Cardiopulmonary arrest with successful resuscitation (2) NSTEMI (non-ST elevated myocardial infarction) (3) On mechanically assisted ventilation (4) Anoxic encephalopathy Plan: agree with rehab placement to help improve cognitive and strength training (5) Multi-vessel coronary artery stenosis Plan: I reviewed his films. LAD does not look fixable with PCI. LCX stentable but complex due to bifurcation Ping Narayanan Aug 15, 2017 13:10
[2017-08-15] MEDS ORDERED: Albuterol-Ipratropium Neb INH (15:20)
[2017-08-15] MEDS ORDERED: MELA5 PO (15:20)
[2017-08-15] MEDS ORDERED: ASPI325T33 PO (15:20)
[2017-08-15] MEDS ORDERED: ATOR40TA16 PO (15:20)
[2017-08-15] MEDS ORDERED: NITR2OIN TOPICAL (15:20)
[2017-08-15] MEDS ORDERED: CEFU1TAB18 PO (15:20)
--- NOTE | 2017-08-15 15:21 | HHI.DCPOC ---
Discharge Care Plan Diagnosis: (1) NSTEMI (non-ST elevated myocardial infarction) (2) Anoxic encephalopathy (3) Multi-vessel coronary artery stenosis Your Health Problems Are: Difficulty with ADL Exercise Tolerance Goals to Promote Your Health * To prevent worsening of your condition and complications * To maintain your health at the optimal level Directions to Meet Your Goals Take your medications as prescribed Follow your dietary instruction Follow activity as directed Keep your appointments as scheduled Take your immunizations and boosters as scheduled If your symptoms worsen call your PCP, if no PCP go to Urgent Care Center or Emergency Room Smoking is Dangerous to Your Health. Avoid second hand smoke Call the 24-hour hour crisis hotline for domestic abuse at Duglas Hooker MD Aug 15, 2017 15:21
--- NOTE | 2017-08-15 18:48 | PD.CARD.PN ---
Subjective Subjective Remarks Events over the weekend noted Patient doing well overall, still with cognitive impairment Objective Medications Current Medications Medications (Trade) Dose Ordered Sig/Rogerio Route Start Time Stop Time Status Last Admin (Brethine Inj) 1 mg UNSCH PRN SQ 08/06/17 09:15 (Trandate Inj) 20 mg Q15M PRN IV PUSH 08/06/17 16:45 08/12/17 00:50 (Apresoline Inj) 10 mg Q30M PRN IV PUSH 08/06/17 16:45 08/11/17 15:03 (Peridex 0.12% Liq) 15 ml BID@08,20 MT 08/06/17 20:00 08/10/17 09:02 (D50w (Vial) Inj) 25 ml UNSCH PRN IV PUSH 08/06/17 16:45 (Duoneb Neb) 1 ampule Q2HR NEB PRN INH 08/06/17 16:45 (Zofran Inj) 4 mg Q6H PRN IV PUSH 08/06/17 16:45 08/13/17 09:22 Miscellaneous Information 1 Q361D XX 08/06/17 16:45 (Chlorhexidine 2% Cloth) Taper DAILY@04 TOP 08/07/17 04:00 08/03/18 03:59 08/12/17 04:00 (Chlorhexidine 2% Cloth) 3 pack UNSCH PRN TOP 08/06/17 16:45 (Rhianna-Colace) 1 tab BID PO 08/06/17 21:00 08/15/17 09:44 (Milk Of Magnesia Liq) 30 ml Q12H PRN PO 08/06/17 16:45 (Lacrilube Opht Oint) 1 applic Q4H PRN EACH EYE 08/06/17 16:45 08/07/17 23:51 (NS Flush) 2 ml BID IV FLUSH 08/06/17 21:00 08/15/17 09:44 (NS Flush) 2 ml UNSCH PRN IV FLUSH 08/06/17 16:45 Miscellaneous Information 0 ml @ 0 mls/hr UNSCH IV 08/06/17 16:45 (Lipitor) 40 mg HS PO 08/10/17 21:00 08/14/17 20:46 Ceftriaxone Sodium 2000 mg/ Sodium Chloride 100 ml @ 200 mls/hr Q24H IV 08/10/17 09:00 08/16/17 10:00 08/15/17 09:43 (Pepcid) 20 mg BID PO 08/10/17 21:00 08/14/17 20:46 (Heparin Inj) 5,000 units UNSCH PRN IV PUSH 08/10/17 19:15 Future Hold (Heparin Inj) 2,500 units UNSCH PRN IV PUSH 08/10/17 19:15 Future Hold 08/13/17 21:17 Heparin Sodium (Porcine) 27909 units/Sodium Chloride 252.5 ml @ 10.1 mls/hr TITRATE PRN IV 08/10/17 15:00 Future Hold 08/14/17 01:45 (Melatonin) 5 mg HS PO 08/11/17 21:00 08/14/17 20:46 (ZyPREXA ZYDIS ODT) 5 mg Q24H PRN PO 08/11/17 23:00 (Ecotrin Ec) 325 mg DAILY PO 08/13/17 09:00 08/15/17 09:47 (Prinivil) 20 mg DAILY PO 08/13/17 09:00 08/15/17 09:44 (Duoneb Neb) 1 ampule Q4HR NEB INH 08/14/17 12:00 08/15/17 15:53 (Lasix) 40 mg DAILY PO 08/14/17 09:00 08/15/17 09:47 (KCl) 40 meq DAILY PO 08/15/17 09:00 08/15/17 09:44 (Lopressor) 25 mg Q12HR PO 08/14/17 21:00 08/15/17 09:44 (Nitroglycerin 2% Oint) 1 inch Q6HR TOPICAL 08/14/17 18:00 08/15/17 17:26 Vital Signs / I&O Vital Signs Date Time Temp Pulse Resp B/P (MAP) Pulse Ox O2 Delivery O2 Flow Rate FiO2 08/15/17 18:00 90 08/15/17 17:00 81 08/15/17 16:00 74 08/15/17 15:00 98.9 72 17 141/78 (99) 95 08/15/17 15:00 95 Room Air 08/15/17 15:00 71 08/15/17 14:00 80 08/15/17 13:00 71 08/15/17 12:00 70 08/15/17 11:00 95 Room Air 08/15/17 11:00 68 08/15/17 11:00 98.6 66 20 129/66 (87) 95 08/15/17 10:00 72 08/15/17 09:00 97 08/15/17 08:00 81 08/15/17 07:48 96 21 08/15/17 07:00 85 08/15/17 07:00 95 Nasal Cannula 2.00 08/15/17 07:00 96.6 72 19 156/78 (104) 95 08/15/17 06:00 76 08/15/17 05:17 71 08/15/17 04:00 81 08/15/17 03:53 94 Nasal Cannula 2.00 08/15/17 03:53 98.8 75 16 150/79 (102) 94 08/15/17 03:00 71 08/15/17 02:00 70 08/15/17 01:00 78 08/15/17 00:00 72 08/14/17 23:27 93 Nasal Cannula 2.00 08/14/17 23:27 98.8 72 15 137/80 (99) 93 08/14/17 23:00 68 08/14/17 22:00 68 08/14/17 21:00 76 08/14/17 20:31 97 Nasal Cannula 2.00 08/14/17 20:00 82 08/14/17 19:14 92 Nasal Cannula 2.00 08/14/17 19:14 98.4 77 16 133/72 (92) 92 08/14/17 19:00 74 I/O 08/14/17 08/14/17 08/14/17 08/15/17 08/15/17 08/15/17 07:00 15:00 23:00 07:00 15:00 23:00 Intake Total 480 ml 1020 ml 240 ml 100 ml 720 ml Output Total 875 ml 700 ml 100 ml 660 ml Balance -395 ml 320 ml 140 ml 100 ml 60 ml Intake Oral 480 ml 720 ml 240 ml 720 ml IV Total 300 ml 100 ml Output Urine Total 875 ml 700 ml 100 ml 660 ml # Voids 3 3 Physical Exam GENERAL: NAD SKIN: Warm/dry HEAD: Atraumatic. Normocephalic. EYES: Pupils equal and round. No scleral icterus. No injection or drainage. ENT: No nasal bleeding or discharge. Mucous membranes pink and moist. NECK: Trachea midline. No JVD. CARDIOVASCULAR: RRR RESPIRATORY: No accessory muscle use. Clear to auscultation. Breath sounds equal bilaterally. GASTROINTESTINAL: Abdomen soft, non-tender, nondistended. Hepatic and splenic margins not palpable. MUSCULOSKELETAL: Extremities without clubbing, cyanosis, or edema. No obvious deformities. Right radial no hematoma, neurovascularly intact distally. Left femoral with hematoma, pressed out and marked, soft. NEUROLOGICAL: No focal deficits noted Laboratory Laboratory Tests Test 08/15/17 03:50 White Blood Count 10.5 TH/MM3 Red Blood Count 3.39 MIL/MM3 Hemoglobin 8.9 GM/DL Hematocrit 27.5 % Mean Corpuscular Volume 81.0 FL Mean Corpuscular Hemoglobin 26.3 PG Mean Corpuscular Hemoglobin Concent 32.5 % Red Cell Distribution Width 20.9 % Platelet Count 223 TH/MM3 Mean Platelet Volume 9.0 FL Neutrophils (%) (Auto) 70.8 % Lymphocytes (%) (Auto) 17.1 % Monocytes (%) (Auto) 11.2 % Eosinophils (%) (Auto) 0.7 % Basophils (%) (Auto) 0.2 % Neutrophils # (Auto) 7.4 TH/MM3 Lymphocytes # (Auto) 1.8 TH/MM3 Monocytes # (Auto) 1.2 TH/MM3 Eosinophils # (Auto) 0.1 TH/MM3 Basophils # (Auto) 0.0 TH/MM3 CBC Comment DIFF FINAL Differential Comment Blood Urea Nitrogen 13 MG/DL Creatinine 0.60 MG/DL Random Glucose 95 MG/DL Calcium Level 8.4 MG/DL Magnesium Level 2.0 MG/DL Sodium Level 140 MEQ/L Potassium Level 3.8 MEQ/L Chloride Level 102 MEQ/L Carbon Dioxide Level 33.1 MEQ/L Anion Gap 5 MEQ/L Estimat Glomerular Filtration Rate 136 ML/MIN Assessment and Plan Problem List: (1) Cardiopulmonary arrest with successful resuscitation ICD Codes: I46.9 - Cardiac arrest, cause unspecified Status: Acute (2) NSTEMI (non-ST elevated myocardial infarction) ICD Codes: I21.4 - Non-ST elevation (NSTEMI) myocardial infarction (3) On mechanically assisted ventilation ICD Codes: Z99.11 - Dependence on respirator [ventilator] status (4) Anoxic encephalopathy ICD Codes: G93.1 - Anoxic brain damage, not elsewhere classified (5) Multi-vessel coronary artery stenosis ICD Codes: I25.10 - Atherosclerotic heart disease of [place] coronary artery without angina pectoris Assessment and Plan 1) Cardiac arrest, PEA on arrival deteriorating into Vfib requiring defibrillation 2) NSTEMI Cath showing MVCAD CT surgery evaluation for possible bypass 3) EF 55-60% 08/15/17 Long discussion with his over the phone about current state. Overall bypass would be his best option if possible as his LAD intervention is about impossible. Will attempt to treat medically until re-evaluation by Dr. Ortiz for consideration of cardiac surgery. understands that he may have another cardiac event in that time period, including but not limited to [place], CVA or . Will plan to increase his beta john therapy and load with Plavix. Discussed with Dr. Ortiz, will plan to stop Plavix 5 days before CABG if he' s a candidate. Aleks Boateng DO Aug 15, 2017 18:48
[2017-08-15] MEDS ORDERED: CLOPIDOGREL 300 MG TAB PO ONE (19:00)
[2017-08-15] MEDS: MELATONIN 5 MG TAB PO SCH (21:28)
[2017-08-15] MEDS: ATORVASTATIN 40 MG TAB PO SCH (21:28)
[2017-08-16] VITALS (23 sets, daily range): BP systolic 105–147; BP diastolic 67–84; PULSE 63–78; RESP 15–18; TEMP 98.1–98.9; O2SAT 94–96
[2017-08-16] MEDS: METOPROLOL TARTRATE 25 MG TAB PO SCH ×4 (00:19→17:20)
[2017-08-16] MEDS: NITROGLYCERIN 2% OINT 1 GM PACKET TOPICAL SCH ×4 (00:19→17:20)
[2017-08-16] MEDS: RESP: ALBUTEROL 2.5 MG/IPRATROPIUM 0.5 MG NEB (SCH) INH ×4 (03:02→15:41)
[2017-08-16] MEDS: CHLORHEXIDINE GLUCONATE 2 % 1 PACK (2 CLOTHS) TOP SCH (04:00)
[2017-08-16] MEDS: CHLORHEXIDINE 0.12% (ORAL KIT) 15 ML CUP MT SCH (08:00)
[2017-08-16] MEDS ORDERED: PLAV75TA29 PO (08:05)
[2017-08-16] MEDS ORDERED: METO25TA3 PO (08:05)
--- NOTE | 2017-08-16 08:44 | HHI.PR ---
Subjective Remarks F/U CAD and encephalopathy. Denies CP. Remains disoriented but is alert and following simple commands discussed with nurse. Left message with the Objective Vitals Vital Signs Date Time Temp Pulse Resp B/P (MAP) Pulse Ox O2 Delivery O2 Flow Rate FiO2 08/16/17 07:32 94 Room Air 08/16/17 07:32 98.3 65 18 130/80 (97) 94 08/16/17 06:12 73 08/16/17 05:00 75 08/16/17 04:00 76 08/16/17 03:24 98.2 68 15 147/84 (105) 96 08/16/17 03:24 96 Room Air 08/16/17 03:00 70 08/16/17 02:00 63 08/16/17 01:00 72 08/16/17 00:00 74 08/15/17 23:26 94 Room Air 08/15/17 23:26 98.2 100 15 162/95 (117) 94 08/15/17 23:00 76 08/15/17 22:00 76 08/15/17 21:00 82 08/15/17 20:00 80 08/15/17 19:43 95 Room Air 08/15/17 19:43 99.5 81 16 136/78 (97) 95 08/15/17 19:22 95 21 08/15/17 19:00 77 08/15/17 18:00 90 08/15/17 17:00 81 08/15/17 16:00 74 08/15/17 15:00 98.9 72 17 141/78 (99) 95 08/15/17 15:00 95 Room Air 08/15/17 15:00 71 08/15/17 14:00 80 08/15/17 13:00 71 08/15/17 12:00 70 08/15/17 11:00 95 Room Air 08/15/17 11:00 68 08/15/17 11:00 98.6 66 20 129/66 (87) 95 08/15/17 10:00 72 08/15/17 09:00 97 I/O 08/15/17 08/15/17 08/15/17 08/16/17 08/16/17 08/16/17 07:00 15:00 23:00 07:00 15:00 23:00 Intake Total 240 ml 100 ml 720 ml 200 ml Output Total 100 ml 660 ml Balance 140 ml 100 ml 60 ml 200 ml Intake Oral 240 ml 720 ml 200 ml IV Total 100 ml Output Urine Total 100 ml 660 ml # Voids 3 4 # Bowel Movements 1 Result Diagram: 08/15/17 0350 08/15/17 0350 Imaging Last Impressions Chest X-Ray 08/14/17 0000 Signed Impressions: Service Date/Time: Monday, August 14, 2017 17:12 - CONCLUSION: Stable chest with persistent minimal right basilar airspace disease no other acute findings. Russ Robledo MD Lower Extremity Ultrasound 08/13/17 0000 Signed Impressions: Service Date/Time: Sunday, August 13, 2017 10:53 - CONCLUSION: Venous mapping study as described. Hussain Cuba MD Carotid Artery Ultrasound 08/13/17 0000 Signed Impressions: Service Date/Time: Sunday, August 13, 2017 11:13 - CONCLUSION: 1. Evidence of 50-69%% diameter stenosis in the right internal carotid artery by velocity criteria with significant plaque in the right carotid bulb and proximal internal carotid artery. 2. Mild to moderate plaque in the left carotid bulb with less than 50%% diameter stenosis by velocity criteria. Hussain Cuba MD Brain MRI 08/09/17 0000 Signed Impressions: Service Date/Time: Wednesday, August 09, 2017 15:52 - CONCLUSION: Normal examination. Moisés Pineda MD Head CT 08/06/17 0000 Signed Impressions: Service Date/Time: Sunday, August 06, 2017 14:10 - CONCLUSION: No acute intracranial disease. Moisés Olvera MD Objective Remarks GENERAL: Middle-aged male, lying in bed, awake, confused. HEENT: Normocephalic. Atraumatic. Pupils are 3 mm, reactive. NECK: Trachea is midline. mild elevation of JVD. CHEST: Equal chest rise. nc o2. CARDIOVASCULAR: NSR, regular rhythm. ABDOMEN: Soft, nontender, nondistended. no guarding. MUSCULOSKELETAL: Left inguinal with bruising. NVI NEUROLOGICAL: Awake and alert. Follows commands. Oriented to person only stable confusion Procedures Cardiac catheterization, arterial line, femoral cooling catheter A/P Problem List: (1) NSTEMI (non-ST elevated myocardial infarction) ICD Code: I21.4 - Non-ST elevation (NSTEMI) myocardial infarction (2) Cardiopulmonary arrest with successful resuscitation ICD Code: I46.9 - Cardiac arrest, cause unspecified Status: Acute Assessment and Plan 62-year-old male with out of hospital cardiac arrest and multivessel coronary disease. Now extubated with improving neuro exam, although mild encephalopathy persists and confused. CT surgery consulted for consideration of CABG. Plan by systems: Neurologic: Hypoxic ischemic encephalopathy - Persistent. Completed hypothermic protocol. Improving neuro exam, GCS 14. MRI negative for any significant anoxic brain injury continue frequent neuro checks melatonin for sleep good day/night reorientation ST for cognitive tx Respiratory: Acute hypoxic hypercarbic respiratory failure-resolved. Pulmonary edema. Resolving Wean oxygen for goal spo2 > 90% Sputum culture staph aureus aggressive pulmonary toilet. Switch to p.o. Lasix Cardiovascular: Status post out of hospital cardiac arrest Ventricular fibrillation ACS Left inguinal hematoma. Platelet count within normal limits. Status post fem stop. Heparin drip on hold. Stable Serial troponins peaked at 29. Cardiology Dr. Boateng. [facility] 08/11: multivessel CAD. Continue aspirin, Lipitor (monitor liver enzymes), Lopressor and lisinopril. Heparin drip (on hold secondary to enlarging left inguinal hematoma) CTS for CABG pending improvement of mental status PAD with plaque in the right RCA. Continue above-mentioned medications. Per CTS Renal: Acute kidney injury d/c hunter Strict I/Os Creatinine has normalized Continue diuresis FEN/GI: advance diet per speech. Hypokalemia. Status post replacement Heme/ID: Sputum culture growing staph aureus. Placed on Rocephin 2 g every 24 hours: plan for full 7 day course for community acquired aspiration. anticipated stop date 08/15 today then switch to p.o. Ceftin. Repeat chest x-ray in 6 week Endocrine: Hyperglycemia of critical illness --Improved discontinue sliding scale Non-occlusive thrombus right common femoral artery. Patient on aspirin Prophylaxis: GI Prophylaxis Pepcid DVT Prophylaxis -- SCDs heparin(on hold) Discharge Planning Stable for discharge. Discussed with CTS and cardiology, optimize medical management with outpatient follow-up in 2-3 weeks for consideration for CABG if improved Duglas Kasper MD Aug 16, 2017 08:44
--- NOTE | 2017-08-16 08:45 | HHI.DS ---
Discharge Summary Admission Date Aug 06, 2017 at 11:10 Discharge Date: Aug 16, 2017 Admitting Diagnosis Cardiopulmonary arrest (1) NSTEMI (non-ST elevated myocardial infarction) ICD Code: I21.4 - Non-ST elevation (NSTEMI) myocardial infarction Diagnosis: Principal Status: Acute (2) Cardiopulmonary arrest with successful resuscitation ICD Code: I46.9 - Cardiac arrest, cause unspecified Diagnosis: Principal Status: Acute Procedures Cardiac catheterization, arterial line, femoral cooling catheter Brief History - From Admission This is a 62-year-old male who presented by private vehicle for acute altered mental status. Per ER reports, he was riding with his through [employer] when he passed out. She immediately turned and drove to the [place] emergency department where in the ER he was found to be in PEA arrest. The states that was approximately 3-5 minutes of [address] before she arrived to the ER. After ACLS, ROSC was obtained. A poor neurologic exam and was emergently transferred to [facility]. I evaluated the patient upon arrival to the CVICU. He had pupils that were 6 mm, sluggishly reactive, deviated to the left. He was extensor posturing in the upper extremities and flexor posturing in the lowers. He had a head CT that was negative for acute intracranial hemorrhage. There was some report from the emergency department that at least one rhythm during ACLS was ventricular fibrillation, suggesting a possible ischemic component to this cardiac arrest. I had a discussion with Dr. Boateng with cardiology and we both agree the patient would be a good hypothermic candidate. No additional information is available from the patient due to his clinical condition. ROS unobtainable. CBC/BMP: 08/15/17 0350 08/15/17 0350 Significant Findings Laboratory Tests Test 08/13/17 13:14 08/13/17 19:57 08/14/17 02:51 08/14/17 11:00 Blood Urea Nitrogen 21 MG/DL (7-18) Random Glucose 112 MG/DL (74-106) Carbon Dioxide Level 33.9 MEQ/L (21.0-32.0) 33.0 MEQ/L (21.0-32.0) Estimat Glomerular Filtration Rate 77 ML/MIN (>89) Activated Partial Thromboplast Time 32.2 SEC (24.3-30.1) 20.2 SEC (24.3-30.1) Red Blood Count 3.51 MIL/MM3 (4.50-5.90) Hemoglobin 9.2 GM/DL (13.0-17.0) Hematocrit 28.1 % (39.0-51.0) Mean Corpuscular Volume 79.9 FL (80.0-100.0) Mean Corpuscular Hemoglobin 26.1 PG (27.0-34.0) Red Cell Distribution Width 20.2 % (11.6-17.2) Monocytes (%) (Auto) 19.0 % (0.0-8.0) Monocytes # (Auto) 1.5 TH/MM3 (0-0.9) Potassium Level 3.3 MEQ/L (3.5-5.1) Test 08/15/17 03:50 Red Blood Count 3.39 MIL/MM3 (4.50-5.90) Hemoglobin 8.9 GM/DL (13.0-17.0) Hematocrit 27.5 % (39.0-51.0) Mean Corpuscular Hemoglobin 26.3 PG (27.0-34.0) Red Cell Distribution Width 20.9 % (11.6-17.2) Neutrophils (%) (Auto) 70.8 % (16.0-70.0) Monocytes (%) (Auto) 11.2 % (0.0-8.0) Monocytes # (Auto) 1.2 TH/MM3 (0-0.9) Calcium Level 8.4 MG/DL (8.5-10.1) Carbon Dioxide Level 33.1 MEQ/L (21.0-32.0) Imaging Last Impressions Abdomen/Pelvis CT 08/16/17 0000 Signed Impressions: Service Date/Time: Wednesday, August 16, 2017 14:46 - CONCLUSION: 1. No hemodynamically significant renal artery stenosis identified. 2. Adequate inflow down to the level of groin. 3. Multiple calcified gallstones in the gallbladder. 4. Patient is post gastric bypass. 5. There is induration of the deep and superficial soft tissues of the left thigh. This is only partially visualized. Presumably this is postoperative but should be correlated with patient's clinical history. 6. The patient is post ventral hernia repair. Joce Collado MD Chest X-Ray 08/14/17 0000 Signed Impressions: Service Date/Time: Monday, August 14, 2017 17:12 - CONCLUSION: Stable chest with persistent minimal right basilar airspace disease no other acute findings. Russ Robledo MD Lower Extremity Ultrasound 08/13/17 0000 Signed Impressions: Service Date/Time: Sunday, August 13, 2017 10:53 - CONCLUSION: Venous mapping study as described. Hussain Cuba MD Carotid Artery Ultrasound 08/13/17 0000 Signed Impressions: Service Date/Time: Sunday, August 13, 2017 11:13 - CONCLUSION: 1. Evidence of 50-69%% diameter stenosis in the right internal carotid artery by velocity criteria with significant plaque in the right carotid bulb and proximal internal carotid artery. 2. Mild to moderate plaque in the left carotid bulb with less than 50%% diameter stenosis by velocity criteria. Hussain Cuba MD Brain MRI 08/09/17 0000 Signed Impressions: Service Date/Time: Wednesday, August 09, 2017 15:52 - CONCLUSION: Normal examination. Moisés Pineda MD Head CT 08/06/17 0000 Signed Impressions: Service Date/Time: Sunday, August 06, 2017 14:10 - CONCLUSION: No acute intracranial disease. Moisés Olvera MD PE at Discharge GENERAL: Middle-aged male, lying in bed, awake, confused. HEENT: Normocephalic. Atraumatic. Pupils are 3 mm, reactive. NECK: Trachea is midline. mild elevation of JVD. CHEST: Equal chest rise. nc o2. CARDIOVASCULAR: NSR, regular rhythm. ABDOMEN: Soft, nontender, nondistended. no guarding. MUSCULOSKELETAL: Left inguinal with bruising. NVI NEUROLOGICAL: Awake and alert. Follows commands. Oriented to person only stable confusion Hospital Course 62-year-old male with out of hospital cardiac arrest and multivessel coronary disease. Now extubated with improving neuro exam, although mild encephalopathy persists and confused. CT surgery consulted for consideration of CABG. Plan by systems: Neurologic: Hypoxic ischemic encephalopathy - Persistent. Completed hypothermic protocol. Improving neuro exam, GCS 14. MRI negative for any significant anoxic brain injury continue frequent neuro checks melatonin for sleep good day/night reorientation ST for cognitive tx Respiratory: Acute hypoxic hypercarbic respiratory failure-resolved. Pulmonary edema. Resolving Wean oxygen for goal spo2 > 90% Sputum culture staph aureus aggressive pulmonary toilet. Switch to p.o. Lasix Cardiovascular: Status post out of hospital cardiac arrest Ventricular fibrillation ACS Left inguinal hematoma. Platelet count within normal limits. Status post fem stop. Heparin drip on hold. Stable Serial troponins peaked at 29. Cardiology Dr. Boateng. [facility] 08/11: multivessel CAD. Continue aspirin, Lipitor (monitor liver enzymes), Lopressor and lisinopril. Heparin drip (on hold secondary to enlarging left inguinal hematoma) CTS for CABG pending improvement of mental status PAD with plaque in the right RCA. Continue above-mentioned medications. Per CTS [facility]vest requested dw cards Renal: Acute kidney injury d/c hunter Strict I/Os Creatinine has normalized Continue diuresis FEN/GI: advance diet per speech. Hypokalemia. Status post replacement Heme/ID: Sputum culture growing staph aureus. Placed on Rocephin 2 g every 24 hours: plan for full 7 day course for community acquired aspiration. anticipated stop date 08/15 today then switch to p.o. Ceftin. Repeat chest x-ray in 6 week Endocrine: Hyperglycemia of critical illness --Improved discontinue sliding scale Non-occlusive thrombus right common femoral artery. Patient on aspirin Prophylaxis: GI Prophylaxis Pepcid DVT Prophylaxis -- SCDs heparin(on hold) Discharge Planning Stable for discharge. Discussed with CTS and cardiology, optimize medical management with outpatient follow-up in 2-3 weeks for consideration for CABG if improved MS Pt Condition on Discharge: Stable Discharge Disposition: Discharge to SNF Discharge Time: > 30 minutes Discharge Instructions DIET: Follow Instructions for: Heart Healthy Diet Speech Therapy-Diet Recommends: Mechanical Soft, Chopped Meat w/Gravy Activities you can perform: Regular-No Restrictions Activities to Avoid: Driving Follow up Referrals: Cardiology - 1 Week PCP Follow-up - 1 Week Surgical - 3 Weeks with Nomei Ortiz MD New Medications: Cefuroxime (Ceftin) 250 Mg Tab 500 MG PO BID for Infection, #24 TAB Defibrillator Jacket (Defibrillator Jacket) 1 Ea Device EA EXTERNAL ONCE for VFIB Arrest, #1 Energy = 150 Joules; VT Threshold = 150 BPM; VF Threshold = 200 BPM Use up to [address] (Aspirin EC) 325 Mg Tabdr 325 MG PO DAILY for Prevent Blood Clot, #30 TAB Atorvastatin (Atorvastatin) 40 Mg Tab 40 MG PO HS for Cholesterol Management, #30 TAB Clopidogrel (Plavix) 75 Mg Tab 75 MG PO DAILY for Prevent Blood Clot, #30 TAB Melatonin (Melatonin) 5 Mg Tab 5 MG PO HS for insomnia, #30 TAB Metoprolol Tartrate (Metoprolol Tartrate) 25 Mg Tab 25 MG PO Q6HR for Blood Pressure Management, #120 TAB Nitroglycerin Topical (Nitro-Bid Topical) 2 % Oint 1 INCH TOPICAL Q6HR for Blood Pressure Management, #1 TUBE [Albuterol-Ipratropium Neb] () 1 AMPULE NEBU 1 AMPULE INH Q6HR NEB, #120 NEBULE Continued Medications: Lisinopril (Lisinopril) 20 Mg Tab 20 MG PO DAILY, TAB 0 Refills Duglas Hooker MD Aug 16, 2017 08:45
[2017-08-16] MEDS: ASPIRIN EC 325 MG TABEC PO SCH (09:00)
[2017-08-16] MEDS ORDERED: CLOPIDOGREL 75 MG TAB PO SCH (09:00)
[2017-08-16] MEDS: cefTRIAXone INJ 2,000 MG in SODIUM CHLORIDE 0.9% INJ 100 ML IV SCH (09:08)
[2017-08-16] MEDS: DOCUSATE SODIUM 50 MG/SENNA 8.6 MG TAB PO SCH (09:08)
[2017-08-16] MEDS: POTASSIUM CHLORIDE 20 MEQ CONTROLLED RELEASE TAB PO SCH (09:08)
[2017-08-16] MEDS: SODIUM CHLORIDE 0.9% FLUSH 10 ML FLUSH IV FLUSH SCH (09:09)
[2017-08-16] MEDS: FAMOTIDINE 20 MG TAB PO SCH (09:09)
[2017-08-16] MEDS: LISINOPRIL 20 MG TAB PO SCH (09:09)
[2017-08-16] MEDS: FUROSEMIDE 40 MG TAB PO SCH (09:14)
[2017-08-16] MEDS ORDERED: DEFIB EXTERNAL (09:21)
--- NOTE | 2017-08-16 11:49 | PD.CARD.PN ---
Subjective Subjective Remarks Patient doing well overall, still with cognitive impairment Left groin more firm in the lower portion Objective Medications Current Medications Medications (Trade) Dose Ordered Sig/Rogerio Route Start Time Stop Time Status Last Admin (Brethine Inj) 1 mg UNSCH PRN SQ 08/06/17 09:15 (Trandate Inj) 20 mg Q15M PRN IV PUSH 08/06/17 16:45 08/12/17 00:50 (Apresoline Inj) 10 mg Q30M PRN IV PUSH 08/06/17 16:45 08/11/17 15:03 (Peridex 0.12% Liq) 15 ml BID@08,20 MT 08/06/17 20:00 08/10/17 09:02 (D50w (Vial) Inj) 25 ml UNSCH PRN IV PUSH 08/06/17 16:45 (Duoneb Neb) 1 ampule Q2HR NEB PRN INH 08/06/17 16:45 (Zofran Inj) 4 mg Q6H PRN IV PUSH 08/06/17 16:45 08/13/17 09:22 Miscellaneous Information 1 Q361D XX 08/06/17 16:45 (Chlorhexidine 2% Cloth) Taper DAILY@04 TOP 08/07/17 04:00 08/03/18 03:59 08/16/17 04:00 (Chlorhexidine 2% Cloth) 3 pack UNSCH PRN TOP 08/06/17 16:45 (Rhianna-Colace) 1 tab BID PO 08/06/17 21:00 08/16/17 09:08 (Milk Of Magnesia Liq) 30 ml Q12H PRN PO 08/06/17 16:45 (Lacrilube Opht Oint) 1 applic Q4H PRN EACH EYE 08/06/17 16:45 08/07/17 23:51 (NS Flush) 2 ml BID IV FLUSH 08/06/17 21:00 08/16/17 09:09 (NS Flush) 2 ml UNSCH PRN IV FLUSH 08/06/17 16:45 Miscellaneous Information 0 ml @ 0 mls/hr UNSCH IV 08/06/17 16:45 (Lipitor) 40 mg HS PO 08/10/17 21:00 08/15/17 21:28 (Pepcid) 20 mg BID PO 08/10/17 21:00 08/16/17 09:09 (Heparin Inj) 5,000 units UNSCH PRN IV PUSH 08/10/17 19:15 Future Hold (Heparin Inj) 2,500 units UNSCH PRN IV PUSH 08/10/17 19:15 Future Hold 08/13/17 21:17 Heparin Sodium (Porcine) 91227 units/Sodium Chloride 252.5 ml @ 10.1 mls/hr TITRATE PRN IV 08/10/17 15:00 Future Hold 08/14/17 01:45 (Melatonin) 5 mg HS PO 08/11/17 21:00 08/15/17 21:28 (ZyPREXA ZYDIS ODT) 5 mg Q24H PRN PO 08/11/17 23:00 (Ecotrin Ec) 325 mg DAILY PO 08/13/17 09:00 08/16/17 09:00 (Prinivil) 20 mg DAILY PO 08/13/17 09:00 08/16/17 09:09 (Duoneb Neb) 1 ampule Q4HR NEB INH 08/14/17 12:00 08/16/17 11:16 (Lasix) 40 mg DAILY PO 08/14/17 09:00 08/16/17 09:14 (KCl) 40 meq DAILY PO 08/15/17 09:00 08/16/17 09:08 (Nitroglycerin 2% Oint) 1 inch Q6HR TOPICAL 08/14/17 18:00 08/16/17 06:02 (Lopressor) 25 mg Q6HR PO 08/16/17 00:00 08/16/17 06:02 (Plavix) 75 mg DAILY PO 08/16/17 09:00 08/16/17 09:09 Vital Signs / I&O Vital Signs Date Time Temp Pulse Resp B/P (MAP) Pulse Ox O2 Delivery O2 Flow Rate FiO2 08/16/17 11:19 95 21 08/16/17 11:15 96 Room Air 08/16/17 11:14 98.9 71 18 105/72 (83) 96 08/16/17 11:00 72 08/16/17 10:00 71 08/16/17 09:00 65 08/16/17 08:00 70 08/16/17 07:32 94 Room Air 08/16/17 07:32 98.3 65 18 130/80 (97) 94 08/16/17 07:00 72 08/16/17 06:12 73 08/16/17 05:00 75 08/16/17 04:00 76 08/16/17 03:24 98.2 68 15 147/84 (105) 96 08/16/17 03:24 96 Room Air 08/16/17 03:00 70 08/16/17 02:00 63 08/16/17 01:00 72 08/16/17 00:00 74 08/15/17 23:26 94 Room Air 08/15/17 23:26 98.2 100 15 162/95 (117) 94 08/15/17 23:00 76 08/15/17 22:00 76 08/15/17 21:00 82 08/15/17 20:00 80 08/15/17 19:43 95 Room Air 08/15/17 19:43 99.5 81 16 136/78 (97) 95 08/15/17 19:22 95 21 08/15/17 19:00 77 08/15/17 18:00 90 08/15/17 17:00 81 08/15/17 16:00 74 08/15/17 15:00 98.9 72 17 141/78 (99) 95 08/15/17 15:00 95 Room Air 08/15/17 15:00 71 08/15/17 14:00 80 08/15/17 13:00 71 08/15/17 12:00 70 I/O 08/15/17 08/15/17 08/15/17 08/16/17 08/16/17 08/16/17 07:00 15:00 23:00 07:00 15:00 23:00 Intake Total 240 ml 100 ml 720 ml 200 ml Output Total 100 ml 660 ml Balance 140 ml 100 ml 60 ml 200 ml Intake Oral 240 ml 720 ml 200 ml IV Total 100 ml Output Urine Total 100 ml 660 ml # Voids 3 4 # Bowel Movements 1 Physical Exam GENERAL: NAD SKIN: Warm/dry HEAD: Atraumatic. Normocephalic. EYES: Pupils equal and round. No scleral icterus. No injection or drainage. ENT: No nasal bleeding or discharge. Mucous membranes pink and moist. NECK: Trachea midline. No JVD. CARDIOVASCULAR: RRR RESPIRATORY: No accessory muscle use. Clear to auscultation. Breath sounds equal bilaterally. GASTROINTESTINAL: Abdomen soft, non-tender, nondistended. Hepatic and splenic margins not palpable. MUSCULOSKELETAL: Extremities without clubbing, cyanosis, or edema. No obvious deformities. Right radial no hematoma, neurovascularly intact distally. Left femoral with hematoma, less ecchymosis, but more firm in the lower portion NEUROLOGICAL: No focal deficits noted Assessment and Plan Problem List: (1) Cardiopulmonary arrest with successful resuscitation ICD Codes: I46.9 - Cardiac arrest, cause unspecified Status: Acute (2) NSTEMI (non-ST elevated myocardial infarction) ICD Codes: I21.4 - Non-ST elevation (NSTEMI) myocardial infarction (3) On mechanically assisted ventilation ICD Codes: Z99.11 - Dependence on respirator [ventilator] status (4) Anoxic encephalopathy ICD Codes: G93.1 - Anoxic brain damage, not elsewhere classified (5) Multi-vessel coronary artery stenosis ICD Codes: I25.10 - Atherosclerotic heart disease of [place] coronary artery without angina pectoris Assessment and Plan 1) Cardiac arrest, PEA on arrival deteriorating into Vfib requiring defibrillation 2) NSTEMI Cath showing MVCAD CT surgery evaluation for possible bypass 3) EF 55-60% 08/15/17 Long discussion with his over the phone about current state. Overall bypass would be his best option if possible as his LAD intervention is about impossible. Will attempt to treat medically until re-evaluation by Dr. Ortiz for consideration of cardiac surgery. understands that he may have another cardiac event in that time period, including but not limited to CA, CVA or . Will plan to increase his beta john therapy and load with Plavix. Discussed with Dr. Ortiz, will plan to stop Plavix 5 days before CABG if he' s a candidate. 08/16/17 Plan of Lifevest before CABG, discussed with . Will attempt to get fitted today. Left groin more firm on the medial lower portion, may be due to layering/dependence. Plan to check CBC and CTA Aleks Boateng DO Aug 16, 2017 11:49
[2017-08-16 15:45] LABS: AUTOMATED NEUTROPHIL # 12.5 TH/MM3 (1.8-7.7); BASOPHIL # 0.1 TH/MM3 (0-0.2); BASOPHIL % 0.3 % (0.0-2.0); EOSINOPHIL # 0.1 TH/MM3 (0-0.4); EOSINOPHIL % 0.9 % (0.0-4.0); HEMATOCRIT 31.6 % (39.0-51.0); HEMOGLOBIN 10.2 GM/DL (13.0-17.0); LYMPH % 11.9 % (9.0-44.0); LYMPHOCYTE # 1.9 TH/MM3 (1.0-4.8); MEAN CELL VOLUME 80.9 FL (80.0-100.0); MEAN CORPUSCULAR HGB CONC 32.2 % (32.0-36.0); MONO % 8.4 % (0.0-8.0); MONOCYTE # 1.3 TH/MM3 (0-0.9); NEUT % 78.5 % (16.0-70.0); PLATELET COUNT 360 TH/MM3 (150-450); RED CELL DISTRIBUTION WIDTH 21.1 % (11.6-17.2); WHITE BLOOD COUNT 15.9 TH/MM3 (4.0-11.0)
--- NOTE | 2017-08-16 17:35 | RADRPT ---
EXAM DATE/TIME: 08/16/2017 14:46 [facility] COMPARISON: CT BRAIN W/O CONTRAST, August 06, 2017, 14:10. INDICATIONS : Left groin hematoma after arterial line IV CONTRAST: 100 cc Omnipaque 350 (iohexol) IV ORAL CONTRAST: No oral contrast ingested. RADIATION DOSE: 7.5 CTDIvol (mGy) MEDICAL HISTORY : Hypertension. Carcinoma, prostate. SURGICAL HISTORY : Gastric bypass. Inguinal hernia repair. ENCOUNTER: Initial ACUITY: 1 day PAIN SCALE: 4/10 LOCATION: Left groin TECHNIQUE: Volumetric scanning was performed using a multi-row detector CT scanner. The data was post processed with a variety of visualization algorithms including full volume maximum intensity projection, multi -planar sliding thin slab reformation, curved planar reformation, and surface rendering techniques. Using automated exposure control and adjustment of the mA and/or kV according to patient size, radiat ion dose was kept as low as reasonably achievable to obtain optimal diagnostic quality images. DICOM format image data is available electronically for review and comparison. FINDINGS: Abdominal aorta: The celiac and SMA origins are widely patent. There are single renal arteries bilaterally. The renal arteries are widely patent. The infrarenal aorta demonstrates diffuse dystrophic plaquing but is norm al in caliber. The MORRIS is patent. Pelvis: The common iliac, internal iliac and external iliac circulation demonstrates mild diffuse atheroscler otic plaquing but is widely patent throughout its course. CT source data: There is extensive atherosclerotic plaquing involving the coronary arteries. There are atelectatic ch anges within the lung bases. The solid organs of the abdomen are grossly intact by arterial phase morris ging. Note is made of several calcified gallstones in the neck of the gallbladder. Note is made of a 4.4 cm cyst arising from the right kidney. No free intraperitoneal air or free peritoneal fluid is se en. Note is made of mesh in the anterior abdominal wall. On the inferior most images of the scan there is some induration of the soft tissues and musculature of the left upper thigh. This is only partially visualized. Presumably, this is postoperative. This s hould be correlated with the patient's history. CONCLUSION: 1. No hemodynamically significant renal artery stenosis identified. 2. Adequate inflow down to the level of groin. 3. Multiple calcified gallstones in the gallbladder. 4. Patient is post gastric bypass. 5. There is induration of the deep and superficial soft tissues of the left thigh. This is only parti ally visualized. Presumably this is postoperative but should be correlated with patient's clinical hi story. 6. The patient is post ventral hernia repair. Joce Collado MD on August 16, 2017 at 17:30 Board Certified Radiologist. This report was verified electronically.
--- NOTE | 2017-08-19 11:23 | RSPPFT ---
DATE OF PROCEDURE: 08/15/17 COMMENTS: Spirometry with decreased flow rates and no gross obstruction but possible airways restriction. If clinically warranted, lung volumes may be helpful.0 IMPRESSION:
== END 2017-08-16 18:00 | DRG 280 ==
LOC: PHED 09:00 → PHEDA 11:10 → HCVI 13:21 → HCPC 08-12 18:15
PROVIDERS: ADMIT Internal Medicine; ATTEND Internal Medicine
PROC: 0D9670Z Drainage of Stomach with Drainage Device, Via Natural or Artificial Opening (ICD-10-PCS; principal; 2017-08-06)
PROC: 04HY32Z Insertion of Monitoring Device into Lower Artery, Percutaneous Approach (ICD-10-PCS; 2017-08-06)
PROC: 5A1945Z Respiratory Ventilation, 24-96 Consecutive Hours (ICD-10-PCS; 2017-08-06)
PROC: 0BH17EZ Insertion of Endotracheal Airway into Trachea, Via Natural or Artificial Opening (ICD-10-PCS; 2017-08-06)
PROC: 0T9B70Z Drainage of Bladder with Drainage Device, Via Natural or Artificial Opening (ICD-10-PCS; 2017-08-06)
PROC: 06HM33Z Insertion of Infusion Device into Right Femoral Vein, Percutaneous Approach (ICD-10-PCS; 2017-08-06)
PROC: 4A133B1 Monitoring of Arterial Pressure, Peripheral, Percutaneous Approach (ICD-10-PCS; 2017-08-06)
PROC: 4A133J1 Monitoring of Arterial Pulse, Peripheral, Percutaneous Approach (ICD-10-PCS; 2017-08-06)
PROC: 06HN33Z Insertion of Infusion Device into Left Femoral Vein, Percutaneous Approach (ICD-10-PCS; 2017-08-06)
PROC: 5A09357 Assistance with Respiratory Ventilation, Less than 24 Consecutive Hours, Continuous Positive Airway Pressure (ICD-10-PCS; 2017-08-10)
PROC: 4A023N7 Measurement of Cardiac Sampling and Pressure, Left Heart, Percutaneous Approach (ICD-10-PCS; 2017-08-11)
PROC: B2111ZZ Fluoroscopy of Multiple Coronary Arteries using Low Osmolar Contrast (ICD-10-PCS; 2017-08-11)
PROC: B2151ZZ Fluoroscopy of Left Heart using Low Osmolar Contrast (ICD-10-PCS; 2017-08-11)
DX: I21.4 Non-ST elevation (NSTEMI) myocardial infarction (principal); I49.01 Ventricular fibrillation; J96.01 Acute respiratory failure with hypoxia; J96.02 Acute respiratory failure with hypercapnia; G93.1 Anoxic brain damage, not elsewhere classified; N17.9 Acute kidney failure, unspecified; Z99.11 Dependence on respirator [ventilator] status; E87.2 Acidosis; I97.638 Postprocedural hematoma of a circulatory system organ or structure following other circulatory system procedure; I82.411 Acute embolism and thrombosis of right femoral vein; I48.91 Unspecified atrial fibrillation; Z98.84 Bariatric surgery status; E78.5 Hyperlipidemia, unspecified; I10 Essential (primary) hypertension; F41.9 Anxiety disorder, unspecified; R73.9 Hyperglycemia, unspecified; F32.9 Major depressive disorder, single episode, unspecified; F10.10 Alcohol abuse, uncomplicated; Z85.46 Personal history of malignant neoplasm of prostate; Z92.3 Personal history of irradiation; N40.0 Benign prostatic hyperplasia without lower urinary tract symptoms; I08.2 Rheumatic disorders of both aortic and tricuspid valves; Z87.891 Personal history of nicotine dependence; R41.89 Other symptoms and signs involving cognitive functions and awareness; I25.10 Atherosclerotic heart disease of native coronary artery without angina pectoris; S30.1XXA Contusion of abdominal wall, initial encounter; E87.70 Fluid overload, unspecified; E87.6 Hypokalemia
CPT/HCPCS: 31500; 36556; 36600; 43753; 51702; 70450; 70551; 71045; 74174; 76937; 80048; 80053; 80061; 80307; 81001; 82550; 82552; 82805; 82948; 83605; 83735; 83880; 84100; 84484; 85007; 85025; 85027; 85610; 85730; 86403; 86850; 86900; 86901; 87070; 87186; 87205; 87641; 93005; 93306; 93458; 93880; 93970; 93998; 94002; 94003; 94010; 94150; 94640; 94664; 94667; 94668; 95819; 96365; 96375; C1769; C1893; C9399; J0171; J0360; J0461; J0696; J1100; J1265; J1644; J1940; J2175; J2405; J3010; J3475; J3480; J7030; J7042; J7050; Q9967

== ENCOUNTER → 2017-09-26 | Outpatient (CLI) | payer BC ==
[~2017-09-26] MED LIST changes: +AMIO200T PO; +ASPI325T33 PO; +ASPI81 PO; +ATOR40TA16 PO; -ATROPINE SULFATE 1 MG/10 ML SYRINGE IV ONE; +COMMODE 3-IN-11 MIS; +DOCU1CAP39 PO; -DOPamine 800 MG/500 ML INJ 500 ML IV ONE; -EPINEPHrine HCL (1:10,000) 1 MG/10 ML SYRINGE IV ONE; +FERR325T20 PO; -LISI-363 PO; +LISI-519 PO; -LORA-474 PO; -MAGNESIUM SULFATE 40 MEQ/10 ML VIAL IV ONE; +MELA5 PO; +METO25TA3 PO; +MULTTAB67 PO; +NITROGLYCERIN 0.3 MG T-DERMAL; +OXYC1TAB63 PO; +PANT40TA3 PO; +PLAV75TA29 PO; -PRAV20 PO; +SERO25TA PO; +TRAZ50TA12 PO; +VITA100T54 PO; +WHEEMIS3; +ceFAZolin INJ 1,000 MG VIAL ONE
[2017-09-26 10:27] LABS: BASOPHIL % 0.7 % (0.0-2.0); EOSINOPHIL # 0.1 TH/MM3 (0-0.4); EOSINOPHIL % 2.2 % (0.0-4.0); HEMATOCRIT 36.3 % (39.0-51.0); HEMOGLOBIN 11.7 GM/DL (13.0-17.0); LYMPH % 28.7 % (9.0-44.0); LYMPHOCYTE # 1.9 TH/MM3 (1.0-4.8); MEAN CELL VOLUME 79.8 FL (80.0-100.0); MEAN CORPUSCULAR HEMOGLOBIN 25.8 PG (27.0-34.0); MEAN CORPUSCULAR HGB CONC 32.3 % (32.0-36.0); MEAN PLATELET VOLUME 8.5 FL (7.0-11.0); MONO % 9.1 % (0.0-8.0); MONOCYTE # 0.6 TH/MM3 (0-0.9); NEUT % 59.3 % (16.0-70.0); PLATELET COUNT 299 TH/MM3 (150-450); RED BLOOD COUNT 4.55 MIL/MM3 (4.50-5.90); RED CELL DISTRIBUTION WIDTH 17.6 % (11.6-17.2); WHITE BLOOD COUNT 6.7 TH/MM3 (4.0-11.0)
[2017-09-26 10:33] LABS: BILIRUBIN, URINE NEG (NEG); BLOOD, URINE NEG (NEG); GLUCOSE,URINE NEG (NEG); KETONE, URINE NEG (NEG); MUCUS URINE FEW /lpf (OCC); NITRITE,URINE NEG (NEG); PH, URINE 5.5 (5.0-8.5); SQUAMOUS EPITHELIAL CELL URINE <1 /hpf (0-5); URINE COLOR YELLOW (YELLW/STRAW); URINE LEUKOCYTE ESTERASE NEG (NEG)
[2017-09-26 10:35] LABS: PROTHROMBIN TIME - PATIENT 10.1 SEC (9.8-11.6)
[2017-09-26 10:55] LABS: BICARBONATE 29.1 MEQ/L (21.0-32.0); CALCIUM 8.8 MG/DL (8.5-10.1); CREATININE 0.95 MG/DL (0.60-1.30)
--- NOTE | 2017-09-26 20:47 | EKG ---
Date Performed: 09/26/2017 Time Performed: 10:23:07 PTAGE: 62 years EKG: SINUS BRADYCARDIA WITH FIRST DEGREE AV BLOCK LOW QRS VOLTAGE IN PRECORDIAL LEADS Anterosept al myocardial infarction-age undeterminate. Abnormal ECG PREVIOUS TRACING : 08/06/2017 09.15.33 DOCTOR: Sharif Pace Interpretating Date/Time 09/26/2017 20:46:31
== END ==
LOC: CPRE 09:49
PROVIDERS: ATTEND Thoracic Surgery (Cardiothoracic Vascular Surgery)
DX: Z01.810 Encounter for preprocedural cardiovascular examination (principal); Z01.812 Encounter for preprocedural laboratory examination; R94.31 Abnormal electrocardiogram [ECG] [EKG]; G93.1 Anoxic brain damage, not elsewhere classified; I46.9 Cardiac arrest, cause unspecified; I21.4 Non-ST elevation (NSTEMI) myocardial infarction; I25.119 Atherosclerotic heart disease of native coronary artery with unspecified angina pectoris
CPT/HCPCS: 36415; 36600; 80048; 81001; 82805; 85025; 85610; 85730; 86850; 86900; 86901; 87640; 87641; 93005; 94060; 94726; 94729

== ENCOUNTER 2017-09-29 05:17 | Inpatient (IN) | payer BC ==
[~2017-09-29] VITALS: Ht 182.9 cm; Wt 99.0 kg
[2017-09-29] VITALS (8 sets, daily range): BP systolic 88–151; BP diastolic 48–131; PULSE 52–80; RESP 12–22; TEMP 97.5–98.2; O2SAT 98–100
[~2017-09-29 05:17] MED LIST changes: -AMIO200T PO; -ASPI81 PO; -DOCU1CAP39 PO; -FERR325T20 PO; -OXYC1TAB63 PO; -PANT40TA3 PO; -ceFAZolin INJ 1,000 MG VIAL ONE
[2017-09-29] MEDS ORDERED: POVIDONE IODINE 5% (ANTISEPSIS KIT) 4 APPLICATIONS EACH NARE PRN (05:45)
[2017-09-29] MEDS ORDERED: DEXTROSE 50% IN WATER 50 ML VIAL(D50) IV PUSH PRN ×2 (05:45→11:45)
[2017-09-29] MEDS ORDERED: INSULIN REGULAR 100 UNITS in NS 100 ML IV PRN (05:45)
[2017-09-29] MEDS ORDERED: CHLORHEXIDINE GLUCONATE 4% SOLN 120 ML BTL TOPICAL SCH (05:45)
[2017-09-29] MEDS ORDERED: PAPAVERINE 60 MG-NITROGLYCERIN 100 MCG-DILTIAZEM 100 MG in NS 100 ML IRRIGATION SCH ×4 (05:45)
[2017-09-29] MEDS ORDERED: METOPROLOL TARTRATE 25 MG TAB PO SCH (05:45)
[2017-09-29] MEDS ORDERED: CEFAZOLIN 500 MG in NS IRR BTL 500 ML IRRIGATION SCH (05:45)
[2017-09-29] MEDS ORDERED: SODIUM CHLORIDE 0.9% FLUSH 10 ML FLUSH IV FLUSH PRN ×2 (05:45→11:45)
[2017-09-29] MEDS ORDERED: LACTATED RINGER'S 1000 ML IV PRN (05:45)
[2017-09-29] MEDS ORDERED: ceFAZolin 2 GM PREMIX 50 ML IV SCH (05:45)
[2017-09-29] MEDS ORDERED: CHLORHEXIDINE GLUCONATE 2 % 1 PACK (2 CLOTHS) TOPICAL PRN (05:45)
[2017-09-29] MEDS ORDERED: PAPAVERINE INJ 60 MG, NITROGLYCERIN INJ 100 MCG, VERAPAMIL INJ 100 MG in SODIUM CHLORID... IRRIGATION SCH (06:45)
[2017-09-29] MEDS ORDERED: MIDAZOLAM HCL 5 MG/5 ML VIAL ONE (06:46)
[2017-09-29] MEDS ORDERED: ACETAMINOPHEN 1000 MG/100 ML 100 ML IV ONE (06:46)
[2017-09-29] MEDS ORDERED: SUGAMMADEX SODIUM 200 MG/2 ML VIAL IV PUSH ONE (06:46)
[2017-09-29] MEDS ORDERED: fentaNYL CITRATE 1000 MCG/20 ML VIAL ONE (06:46)
[2017-09-29] MEDS ORDERED: methylPREDNISolone SOD SUCC 125 MG/2 ML VIAL ONE (06:48)
[2017-09-29] MEDS ORDERED: ceFAZolin 2 GM PREMIX 50 ML ONE (06:48)
[2017-09-29] MEDS ORDERED: VANCOMYCIN HCL 1000 MG VIAL ONE (06:48)
[2017-09-29] MEDS ORDERED: HEPARIN SODIUM - SQ 10,000 UNITS/ML VIAL ONE (06:49)
[2017-09-29] MEDS ORDERED: CARDIOPLEGIC IRR 2,000 ML ONE (07:20)
[2017-09-29] MEDS ORDERED: SODIUM BICARBONATE 8.4% INJ 50 ML ONE (07:21)
[2017-09-29] MEDS ORDERED: POTASSIUM CHLOR 40 MEQ PREMIX 100 ML ONE (07:21)
[2017-09-29] MEDS ORDERED: HEPARIN SODIUM - IV 10,000 UNITS/10 ML VIAL ONE (07:22)
[2017-09-29] MEDS ORDERED: MANNITOL INJ 100 ML ONE (07:22)
[2017-09-29] MEDS ORDERED: CALCIUM CHLORIDE 10% SOLN 1 GRAM/10 ML SYR ONE (07:23)
[2017-09-29] MEDS ORDERED: fentaNYL CITRATE 250 MCG/5 ML AMP ONE ×2 (09:27→11:04)
[2017-09-29] MEDS ORDERED: LACTATED RINGER'S 1000 ML INJ 500 ML IV PRN (11:32)
[2017-09-29] MEDS ORDERED: MAGNESIUM SULFATE INJ 2 GM in SODIUM CHLORIDE 0.9% INJ 100 ML IV PRN ×4 (11:45)
[2017-09-29] MEDS ORDERED: RESP: RACEPINEPHRINE 2.25% 0.5 ML NEB NEB PRN (11:45)
[2017-09-29] MEDS ORDERED: ACETAMINOPHEN 650 MG SUPP RECTAL PRN (11:45)
[2017-09-29] MEDS ORDERED: RESP: ALBUTEROL 2.5 MG/IPRATROPIUM 0.5 MG NEB (PRN) NEB (11:45)
[2017-09-29] MEDS ORDERED: CALCIUM CHLORIDE INJ 1 GM in SODIUM CHLORIDE 0.9% INJ 100 ML IV PRN (11:45)
[2017-09-29] MEDS ORDERED: ALBUMIN 5% INJ 250 ML IV PRN (11:45)
[2017-09-29] MEDS ORDERED: INSULIN REGULAR (IV INFUSION) 100 UNITS in SODIUM CHLORIDE 0.9% INJ 99 ML IV PRN (11:45)
[2017-09-29] MEDS ORDERED: ACETAMINOPHEN 325 MG TAB PO PRN (11:45)
[2017-09-29] MEDS ORDERED: oxyCODONE/ACETAMINOPHEN 5 MG/325 MG TAB PO PRN (11:45)
[2017-09-29] MEDS ORDERED: CLEVIDIPINE INJ 50 ML IV PRN (11:45)
[2017-09-29] MEDS ORDERED: hydrALAZINE HCL 20 MG/ML VIAL IV PUSH PRN (11:45)
[2017-09-29] MEDS ORDERED: CALCIUM CHLORIDE 10% 1 GRAM/10 ML VIAL IV PUSH PRN (11:45)
[2017-09-29] MEDS ORDERED: DEXMEDETOMIDINE INJ 200 MCG in SODIUM CHLORIDE 0.9% INJ 50 ML IV PRN (11:45)
[2017-09-29] MEDS ORDERED: POTASSIUM CHLORIDE 20 MEQ CONTROLLED RELEASE TAB PO PRN ×2 (11:45)
[2017-09-29] MEDS ORDERED: ONDANSETRON HCL 4 MG/2 ML VIAL IV PUSH PRN (11:45)
[2017-09-29] MEDS ORDERED: METOPROLOL TARTRATE 5 MG/5 ML VIAL IV PUSH PRN (11:45)
[2017-09-29] MEDS ORDERED: SODIUM BICARBONATE 8.4% SOLN 50 MEQ/50 ML VIAL IV PUSH PRN ×2 (11:45)
[2017-09-29] MEDS ORDERED: POTASSIUM CHLOR 20 MEQ PREMIX 100 ML IV PRN ×3 (11:45)
--- NOTE | 2017-09-29 11:46 | PD.OP ---
cc: Noemi Ortiz MD; Aleks Boateng DO Operative Report Date of Surgery: September 29, 2017 Preoperative Diagnosis: (1) Multi-vessel coronary artery stenosis (2) NSTEMI (non-ST elevated myocardial infarction) Postoperative Diagnosis: same Procedure: CABG x 3 HUTCHINSON to LAD - good SVG to OM1 - good SVG to left PDA EVH (R) Anesthesia: Dr. Molina Surgeon: Noemi Ortiz Cow Buyer(s): Comfort Rodarte, ARABELLA Operation and Findings: The risks, benefits, complications, treatment options, and expected outcomes were discussed with the patient. The possibilities of reaction to medication, pulmonary aspiration, perforation of viscus, bleeding, recurrent infection, the need for additional procedures, failure to diagnose a condition, and creating a complication requiring transfusion or operation were discussed with the patient. The patient concurred with the proposed plan, giving informed consent. The site of surgery properly noted/marked. The patient was taken to Operating Room, identified as Elizabeth Iglesias and the procedure verified as CABG, EVH. A Time Out was held and the above information confirmed. Standard monitoring lines and Rizvi catheter were placed. General anesthesia was induced. The patient was prepped and draped in a sterile fashion. A median sternotomy was performed and electrocautery was used to obtain hemostasis. The left internal mammary artery was procured as a pedicle from the 7th rib to the 1st rib in the usual manner. Simultaneously right greater saphenous vein was procured from the right leg using a minimally invasive endoscopic technique. The vein was prepared for anastomosis and the leg wound was irrigated and closed in 2 layers. The pericardium was opened and a pericardial sling was created using interrupted 0 silk sutures. The patient was heparinized for cardiopulmonary bypass and the distal mammary pedicle was instrumented for anastomosis. The heart was instrumented for cardiopulmonary bypass in the usual manner. Antegrade blood cardioplegia was employed. The patient was placed on cardiopulmonary bypass. An aortic cross-clamp was applied and the heart was arrested using cold blood cardioplegia. Antegrade cardioplegia was administered after he each anastomosis. After adequate arrest, the distal right coronary circulation was investigated and the left PDA was opened with a Cleveland blade and found to be a 1.5 millimeter good target. Saphenous vein was approximated to the PDA artery using a running 7 0 Prolene suture. The graft was measured for length and orientation and the proximal anastomosis was constructed to the ascending aorta using a running 5 0 Prolene suture after creating an aortotomy with a 5 millimeter punch. The 1st circumflex marginal artery was then opened with a Cleveland blade and found to be a 1.5 millimeter good target. Saphenous vein was approximated to the OM1 artery using a running 7 0 Prolene suture. The graft was measured for length and orientation and was suspended from the pericardium. The distal LAD was opened with a Cleveland blade and found to be a 1.5 millimeter good target. The left internal mammary artery was approximated to the LAD using a running 7 0 Prolene suture. The pedicle was attached to the epicardium using interrupted 5 0 silk suture. The patient was systemically rewarmed and received a hotshot dose of warm blood cardioplegia. The aorta was vented and the proximal anastomosis to the OM1 graft was accomplished using a running 5 0 Prolene suture after creating an aortotomy was a 5 millimeter punch. The cross -clamp was removed and all proximal and distal anastomoses were examined for hemostasis. The patient was weaned from cardiopulmonary bypass. Protamine was given. There was no adverse reaction. Decannulation was carried out without incident. Wound was checked for hemostasis which was obtained using electrocautery. A 36 Spanish mediastinal and 32 Spanish left pleural chest tubes were placed and secured to the skin with 0 silk suture. The sternum was closed with stainless steel wire. The fascia was closed with 1. PDS. The subcutaneous tissue was closed using a running 2-0 Vicryl suture. The skin was closed with 4- 0 Monocryl. Sterile dressings were placed. At the end of the operation, all sponge, instruments, and needle counts were correct. The patient was transferred to the CVICU in stable condition. Findings: good distal targets. HUTCHINSON dissection was difficult secondary to previous CPR XC: 46 min CPB: 58 min Drains: mediastinal x 1 pleural x 1 Complications: none Disposition: to CVICU in stable condition Noemi Otriz MD September 29, 2017 11:46
[2017-09-29] MEDS ORDERED: PHENYLEPH/NS 1000 MCG/10 ML SYR IV ONE (12:00)
[2017-09-29] MEDS ORDERED: AMIODARONE HCL 150 MG/3 ML VIAL IV ONE (12:00)
[2017-09-29] MEDS ORDERED: SODIUM CHLOR 0.9% 250 ML INJ 500 ML IV ONE (12:00)
[2017-09-29] MEDS ORDERED: AMINOCAPROIC ACID INJ 250 MG/ML 20 ML VIAL IV ONE (12:00)
[2017-09-29] MEDS ORDERED: SODIUM CHLORID 0.9% 500 ML INJ 500 ML IV ONE (12:00)
[2017-09-29] MEDS ORDERED: ePHEDrine/NS 25 MG/5 ML SYRINGE IV ONE (12:00)
[2017-09-29] MEDS: METOPROLOL TARTRATE 25 MG TAB PO SCH ×2 (12:00→17:39)
[2017-09-29] MEDS ORDERED: DEXMEDETOMIDINE HCL 200 MCG/2 ML VIAL IV ONE (12:00)
[2017-09-29] MEDS ORDERED: MAGNESIUM SULFATE 1 GM/2 ML VIAL IV ONE (12:00)
[2017-09-29] MEDS ORDERED: PHENYLEPHRINE HCL 10 MG/ML VIAL IV ONE (12:00)
[2017-09-29] MEDS ORDERED: NITROGLYCERIN 50 MG/DEXTROSE 5% SOLN 250 ML BTL IV ONE (12:00)
[2017-09-29] MEDS ORDERED: HEPARIN SODIUM - SQ 10,000 UNITS/ML VIAL SQ ONE (12:00)
[2017-09-29] MEDS ORDERED: PROTAMINE SULFATE 250 MG/25 ML VIAL IV ONE (12:00)
[2017-09-29] MEDS ORDERED: LACTATED RINGER'S 1000 ML INJ 1,000 ML IV ONE (12:00)
[2017-09-29] MEDS ORDERED: VECURONIUM BROMIDE 10 MG VIAL IV ONE (12:00)
[2017-09-29] MEDS ORDERED: SODIUM CHLORIDE 0.9% INJ 200 ML IV ONE (12:00)
[2017-09-29] MEDS ORDERED: NORMOSOL R INJ 1,000 ML IV ONE (12:00)
[2017-09-29] MEDS ORDERED: GLYCOPYRROLATE 1 MG/5 ML SYRINGE IV PUSH ONE (12:00)
[2017-09-29] MEDS ORDERED: Post-op Orders (for Pharmacy) OTHER ONE (12:03)
--- NOTE | 2017-09-29 12:51 | RADRPT ---
EXAM DATE/TIME: 09/29/2017 12:20 [facility] COMPARISON: CHEST SINGLE AP, August 14, 2017, 17:12. INDICATIONS : Post CABG MEDICAL HISTORY : Cardiovascular disease. Hypertension carcinoma prostate SURGICAL HISTORY : Gastric bypass. ENCOUNTER: Subsequent ACUITY: 1 week PAIN SCORE: Non-responsive. LOCATION: Bilateral chest FINDINGS: Left chest tube is in place. NG tube is present with tip in the stomach. ET tube is present with tip approximately 3 cm above the danny. Right IJ central line is present with tip overlapping the right atrium. There is no pneumothorax for technique. Slight bilateral lung base atelectasis and/or infiltr ate is seen. Focal consolidation is not seen. Borderline cardiomegaly seen. CONCLUSION: Slight bilateral lung base atelectasis and/or infiltrate is seen. Duke Wolff MD on September 29, 2017 at 12:48 Board Certified Radiologist. This report was verified electronically.
--- NOTE | 2017-09-29 13:52 | PD.CAR.PN ---
CVT Progress Note Subjective/Hospital Course: 62/ male , initially seen 08/12/17, witnessed by significant other cardiac arrest , in Emergency Department he was found to be in PEA arrest. After ACLS protocol return of spontaneous circulation was obtained. Initially, a poor neuro exam was obtained and then immediately transferred to [facility]. He was evaluated by critical care med. Per the notes from critical care, the pupils are 6 mm, deviated to the left. There was an extensor posturing in the upper extremities and flexure posturing in the lowers. Initial head CT was negative for acute intracranial hemorrhage. He was also found to have 1 rhythm of ventricular fibrillation, suggesting possible ischemic component. The decision was made for hypothermic therapy, which was started the same day. He was rewarmed on the with complete rewarming completed on the 09/09. Neurologically he slowly improved from encephalopathy, he then underwent cardiac cath on the by Dr. Boateng, which showed 10% left main, proximal LAD 99%, mid distal LAD 90%, diagonal 90%, the circumflex had 80%, the OM 70%, the RCA 10%, ejection fraction 60%. Echocardiogram was also done, which showed an EF of 55-60%, so the left atrial size was mild to moderately dilated. There was some trace aortic AI, mild tricuspid regurgitation. We were then consulted to evaluate for coronary artery bypass grafting.. He was stabilized and sent to rehab to fully recover. 09/29 pt was electively re-admitted for CABG surgery : CABG x 3 , HUTCHINSON to LAD - good, SVG to OM1 - good, SVG to left PDA, EVH (R) Objective: Vital Signs Date Time Temp Pulse Resp B/P (MAP) Pulse Ox O2 Delivery O2 Flow Rate FiO2 09/29/17 12:00 99 50 09/29/17 05:50 98.0 53 16 123/73 (90) 95 Labs: Laboratory Tests Test 09/29/17 09:09 Platelet Function P2Y12 React Units 224 PRU (194-418) (1) Hx of encephalopathy (2) Hx of cardiac arrest (3) Hyperlipemia (4) Hypertension (5) S/P CABG x 3 (6) Multi-vessel coronary artery stenosis Ping Narayanan September 29, 2017 13:52
--- NOTE | 2017-09-29 13:55 | HHI.FF ---
Face to Face Verification Diagnosis: (1) Status post non-ST elevation myocardial infarction (NSTEMI) (2) Hx of cardiac arrest (3) Hx of encephalopathy (4) Hypertension (5) Hyperlipemia (6) S/P CABG x 3 Physical Therapy Order: Evaluate and Treat Home Health Nursing Order: Signs/symptoms of disease process Medication education-adverse effect Wound care and dressing changes Nursing assessment with vital signs Instructions: Heart and Vascular Surgery patients *Special attention to sternal dressing Mandatory frequency Assess and evaluation, 4 days in a row The next week 3X week 2 times a week for 4 weeks 1 time a week for 5 weeks Schedule Heart and Vascular patients for full 60 day certification period Initial visit Review Open Heart Surgery Discharge Instructions (Sternal precautions, Activity, Elastic hose, Incision care, Driving, Incentive spirometry, Smoking, [place], Work and other) Need Betadine to paint incision Medication reconciliation Importance of follow up care/ check on appointments Make calendar record temperature daily When to call [facility] at Home nurse, review instructions, phone list Incentive Spirometry, demonstration Visit 1- Begin discharge instruction for patient family and/ or caregiver using teach back method- Signs and symptoms of infection Disease characteristics Medicines and side effects Foods and nutrition/ appetite Infection control/ hand washing/ hygiene Visit 2- Continue teaching Discharge instructions- include additional information on smoking cessation , sternal dressing (sternal vac) Visit 3- Continue teaching- Cough and deep breathing, incision monitoring. Choose my plate Visit 4- Continue teaching- Discuss limitations Discuss how they are feeling Discuss progress toward goals Remaining visits- continue teaching and monitoring For any questions please call : Tuesday 8am-5pm Heart & Vascular Surgery Office ( Dr. Higgins & Dr. Ortiz), After Hours / Nights (5pm -8am) Weekends and Holidays Please call [facility] Cardiac Intermediate Care Unit (CIC) Charge Nurse PREVENA Single Use Negative Wound Therapy System Caregiver Instruction Sheet 1. A Prevena dressing system was applied to the chest incision during surgery , to promote wound healing. It works via a suction device (negative pressure wound therapy) to remove low to moderate levels of exudate (drainage) and infectious materials. We recommend that the device stay in place for up to seven days, from day of surgery. 2. Day of Surgery___//18 Day of Removal ____10/06/17 3. The dressing should only be removed by a health primary care physician. Please arrange removal of device to coincide with Home Health visit and or with Nursing staff at Rehab 4. If skin reddening or irritation of skin occurs, or excessive drainage, please notify the Cardiovascular Surgeons office at [phone]. 5. Light showering is permissible; however the pump should be disconnected and placed in safe location, where it will not get wet. The dressing should not be exposed to direct spray or submerged in water. No bath tub / shower only. Ensure the end of the tubing attached to the dressing is facing down so that water does not enter the top of the tube. 6. To remove Prevena dressing: press purple button to turn off device / remove the suction. Then disconnect the tubing from the pump. The fixation strips should be stretched away from the skin and the dressing lifted at one corner and peeled back until it has been fully removed. 7. After removal, it is ok to shower daily using liquid dial soap and clean wash cloth, rinse and pat dry, and leave incision open to air dry. For any concerns regarding Prevena dressing, and or wounds, please contact Sylvia Ashford, patient navigator at [phone] or notify the Cardiovascular Surgeons office at [phone]. Incentive spirometry Q1 hr x 10, while awake, also use acapella device hourly whole awake Sternal Breast Bone Precautions: NO pushing or pulling, ( pt must use sternal pillow to support chest with all activities and with coughing ( takes up to 3 months breast bone to heal ) Daily incision care: ok to shower daily, no tub bath. Wash all incisions with liquid dial soap, clean wash cloth to each site, rinse and pat dry. Observe for any signs of infection, such as drainage which is dark yellow, loaiza, green or foul smelling. Immediately report to the surgeon any drainage from the chest incision, or legs, and for any abnormal drainage from the chest tube sites. Notify surgeon if any temp >101.5 degrees F. When specialty dressing removed/ or if you do not have one, continue to shower daily as above, then rinse and pat incision dry and paint with betadine daily x 5 days. Allow steri strips to fall off if you have any. Avoid lotions, creams, salves, oils, etc. for the first month Please see attached forms for additional instructions regarding post Open Heart specialty wound vacuum dressings. TIERRA or Prevena , Dressing to be removed by Nursing staff on __10/06/[address] Ortiz patients , please obtain CBC, BMP, PA & Lat CXR in 2 weeks, results to Dr. Ortiz ( prescription will be given) ( ) (Tele: [phone]) , F/U appointment: as per DC instructions: PCP in 2 weeks, CV surgeon 2 weeks, Return To Vendor 3-4 weeks For any questions regarding incisions/ dressing / meds / post op care or above Symptoms, Tuesday 8am-5pm Heart & Vascular Surgery Office ( Dr. Higgins & Dr. Ortiz), After Hours / Nights (5pm -8am) Weekends and Holidays Please call [facility] Cardiac Intermediate Care Unit (CIC) Charge Nurse I have seen patient Elizabeth Iglesias on 09/29/17. My clinical findings support the need for the requested home health care services because: Deconditioned w/ increased weakness I certify that my clinical findings support that this patient is homebound because: Post-op weakness iPng Narayanan September 29, 2017 13:55
[2017-09-29] MEDS: AMIODARONE 200 MG TAB PO SCH ×2 (14:00→21:49)
[2017-09-29] MEDS: ACETAMINOPHEN 1000 MG/100 ML 100 ML IV SCH ×2 (14:28→20:58)
[2017-09-29] MEDS ORDERED: DO NOT ADM ANY ANTICOAGULANT DRUGS PRN (17:00)
[2017-09-29] MEDS: RESP: ALBUTEROL 2.5 MG/IPRATROPIUM 0.5 MG NEB (SCH) NEB ×2 (17:45→21:06)
[2017-09-29] MEDS: ATORVASTATIN 40 MG TAB PO SCH (20:59)
[2017-09-29] MEDS: QUEtiapine FUMARATE 25 MG TAB PO SCH (20:59)
[2017-09-29] MEDS: traZODone HCL 50 MG TAB PO SCH (20:59)
[2017-09-29] MEDS: SODIUM CHLORIDE 0.9% FLUSH 10 ML FLUSH IV FLUSH SCH (21:02)
[2017-09-30] VITALS (19 sets, daily range): BP systolic 94–125; BP diastolic 54–81; PULSE 65–90; RESP 16–20; TEMP 97.6–98.5; O2SAT 94–99
[2017-09-30] MEDS: ACETAMINOPHEN 1000 MG/100 ML 100 ML IV SCH ×2 (02:00→09:12)
[2017-09-30 04:31] LABS: HEMATOCRIT 28.3 % (39.0-51.0); MEAN CELL VOLUME 79.6 FL (80.0-100.0); MEAN CORPUSCULAR HEMOGLOBIN 25.3 PG (27.0-34.0); MEAN CORPUSCULAR HGB CONC 31.8 % (32.0-36.0); PLATELET COUNT 224 TH/MM3 (150-450); RED BLOOD COUNT 3.56 MIL/MM3 (4.50-5.90); WHITE BLOOD COUNT 11.7 TH/MM3 (4.0-11.0)
[2017-09-30 04:57] LABS: BICARBONATE 24.5 MEQ/L (21.0-32.0); CALCIUM 8.3 MG/DL (8.5-10.1); CREATININE 0.69 MG/DL (0.60-1.30)
[2017-09-30] MEDS: RESP: ALBUTEROL 2.5 MG/IPRATROPIUM 0.5 MG NEB (SCH) NEB ×3 (05:06→19:55)
[2017-09-30] MEDS: PANTOPRAZOLE SOD 40 MG DELAYED RELEASE TAB PO SCH (05:55)
[2017-09-30] MEDS: AMIODARONE 200 MG TAB PO SCH ×3 (05:55→21:59)
[2017-09-30] MEDS: METOPROLOL TARTRATE 25 MG TAB PO SCH ×3 (05:55→21:59)
--- NOTE | 2017-09-30 06:29 | RADRPT ---
EXAM DATE/TIME: 09/30/2017 04:58 [facility] COMPARISON: CHEST SINGLE AP, September 29, 2017, 12:20. INDICATIONS : Status post CABG. MEDICAL HISTORY : Cardiovascular disease. Hypertension. Carcinoma, prostate. SURGICAL HISTORY : None. ENCOUNTER: Initial ACUITY: 1 day PAIN SCORE: Non-responsive. LOCATION: chest FINDINGS: 2 thoracostomy tubes overlie the left chest a right-sided central line observed. Nasogastric tube has been removed. Lungs are clear. No pneumothorax. No effusions. Heart is mildly enlarged. Median self otomy wires. CONCLUSION: Clear lungs. Jeremy Blanton Jr., MD on September 30, 2017 at 6:27 Board Certified Radiologist. This report was verified electronically.
[2017-09-30] MEDS ORDERED: GLUCAGON 1 MG/ML VIAL OTHER PRN (09:00)
[2017-09-30] MEDS ORDERED: BISACODYL 10 MG SUPP RECTAL PRN (09:00)
[2017-09-30] MEDS ORDERED: MULTIVITAMIN TAB PO SCH (09:00)
[2017-09-30] MEDS ORDERED: SOD PHOSPHATE/SOD BIPHOSPHATE (ADULT) ENEMA 133ML RECTAL PRN (09:00)
[2017-09-30] MEDS: MULTIVITAMINS/MINERALS THERAPEUTIC TAB PO SCH (09:00)
[2017-09-30] MEDS: THIAMINE HCL 100 MG TAB PO SCH (09:00)
[2017-09-30] MEDS ORDERED: DEXTROSE 50% IN WATER 50 ML VIAL(D50) IV PUSH PRN (09:00)
[2017-09-30] MEDS: QUEtiapine FUMARATE 25 MG TAB PO SCH ×2 (09:12→22:00)
[2017-09-30] MEDS ORDERED: PILL SPLITTER OTHER PRN (09:15)
[2017-09-30] MEDS: SODIUM CHLORIDE 0.9% FLUSH 10 ML FLUSH IV FLUSH SCH ×2 (09:25→21:59)
[2017-09-30] MEDS: ASPIRIN 81 MG CHEW TAB PO SCH (09:26)
[2017-09-30] MEDS: MAGNESIUM HYDROXIDE SUSP 30 ML CUP PO SCH (09:57)
[2017-09-30] MEDS: DOCUSATE SODIUM 100 MG CAP PO SCH ×2 (09:57→21:58)
[2017-09-30] MEDS: INSULIN ASPART SUPPLEMENTAL SCALE SQ SCH ×4 (09:59→22:21)
--- NOTE | 2017-09-30 12:15 | EKG ---
Date Performed: 09/30/2017 Time Performed: 03:17:38 PTAGE: 62 years EKG: Sinus rhythm Lead(s) unsuitable for analysis: V5 Short TX interval Borderline ECG PREVIOUS TRACING : 09/26/2017 10.23 Since the previous tracing, no significant change noted DOCTOR: Marcus Washington Interpretating Date/Time 09/30/2017 12:13:04
--- NOTE | 2017-09-30 16:00 | PD.CAR.PN ---
CVT Progress Note Subjective/Hospital Course: 62/ male , initially seen 08/12/17, witnessed by significant other cardiac arrest , in Emergency Department he was found to be in PEA arrest. After ACLS protocol return of spontaneous circulation was obtained. Initially, a poor neuro exam was obtained and then immediately transferred to [facility]. He was evaluated by critical care med. Per the notes from critical care, the pupils are 6 mm, deviated to the left. There was an extensor posturing in the upper extremities and flexure posturing in the lowers. Initial head CT was negative for acute intracranial hemorrhage. He was also found to have 1 rhythm of ventricular fibrillation, suggesting possible ischemic component. The decision was made for hypothermic therapy, which was started the same day. He was rewarmed on the with complete rewarming completed on the 09/09. Neurologically he slowly improved from encephalopathy, he then underwent cardiac cath on the by Dr. Boateng, which showed 10% left main, proximal LAD 99%, mid distal LAD 90%, diagonal 90%, the circumflex had 80%, the OM 70%, the RCA 10%, ejection fraction 60%. Echocardiogram was also done, which showed an EF of 55-60%, so the left atrial size was mild to moderately dilated. There was some trace aortic AI, mild tricuspid regurgitation. We were then consulted to evaluate for coronary artery bypass grafting.. He was stabilized and sent to rehab to fully recover. 09/29 pt was electively re-admitted for CABG surgery : CABG x 3 , HUTCHINSON to LAD - good, SVG to OM1 - good, SVG to left PDA, EVH (R) extubated after surgery EF 50-60% discussed with Dr Boateng and Dr santamaria / ok to dc [employer] vest / will not need at discharge/ pt revascularized still has some cognitive issues will transfer to stepdown , close to nurses station on ASA, statin , BB Objective: GENERAL: awake, pleasantly confused , not alert to place SKIN: Warm and dry. prevena dressing to chest , incision intact to right leg HEAD: Normocephalic. EYES: No scleral icterus. No injection or drainage. NECK: Supple, trachea midline. No JVD or lymphadenopathy. CARDIOVASCULAR: Regular rate and rhythm without murmurs, gallops, or rubs. RESPIRATORY: Breath sounds equal bilaterally. No accessory muscle use. GASTROINTESTINAL: Abdomen soft, non-tender, nondistended. MUSCULOSKELETAL: No cyanosis, or edema. BACK: Nontender without obvious deformity. No CVA tenderness. Vital Signs Date Time Temp Pulse Resp B/P (MAP) Pulse Ox O2 Delivery O2 Flow Rate FiO2 09/30/17 15:16 Room Air 09/30/17 15:16 98.4 83 16 119/66 (83) 95 09/30/17 14:00 86 09/30/17 13:00 90 09/30/17 12:00 86 09/30/17 11:06 Room Air 09/30/17 11:06 97.6 83 16 94/64 (74) 96 Arterial Line 09/30/17 11:00 75 09/30/17 09:33 95 21 09/30/17 08:00 94 Room Air 09/30/17 07:00 98.5 74 16 112/81 (91) 97 98/54 (69) 09/30/17 07:00 74 09/30/17 07:00 18 09/30/17 07:00 97 Nasal Cannula 2.00 09/30/17 03:00 97.8 80 20 122/74 (90) 99 125/70 (88) 09/30/17 03:00 99 Nasal Cannula 2.00 09/30/17 03:00 85 09/30/17 02:30 20 09/29/17 23:00 98 Nasal Cannula 2.00 09/29/17 23:00 80 09/29/17 23:00 98.2 80 22 94/68 (77) 98 102/58 (73) 09/29/17 21:08 98 Nasal Cannula 4.00 09/29/17 19:00 99 Nasal Cannula 2.00 09/29/17 19:00 60 09/29/17 19:00 97.9 60 18 107/84 (92) 99 109/64 (79) 09/29/17 17:00 99 Nasal Cannula 2.00 Labs: Laboratory Tests Test 09/30/17 04:08 White Blood Count 11.7 TH/MM3 (4.0-11.0) Red Blood Count 3.56 MIL/MM3 (4.50-5.90) Hemoglobin 9.0 GM/DL (13.0-17.0) Hematocrit 28.3 % (39.0-51.0) Mean Corpuscular Volume 79.6 FL (80.0-100.0) Mean Corpuscular Hemoglobin 25.3 PG (27.0-34.0) Mean Corpuscular Hemoglobin Concent 31.8 % (32.0-36.0) Red Cell Distribution Width 17.0 % (11.6-17.2) Platelet Count 224 TH/MM3 (150-450) Mean Platelet Volume 9.0 FL (7.0-11.0) Blood Urea Nitrogen 15 MG/DL (7-18) Creatinine 0.69 MG/DL (0.60-1.30) Random Glucose 123 MG/DL (74-106) Calcium Level 8.3 MG/DL (8.5-10.1) Magnesium Level 2.0 MG/DL (1.5-2.5) Sodium Level 141 MEQ/L (136-145) Potassium Level 4.6 MEQ/L (3.5-5.1) Chloride Level 107 MEQ/L (98-107) Carbon Dioxide Level 24.5 MEQ/L (21.0-32.0) Anion Gap 10 MEQ/L (5-15) Estimat Glomerular Filtration Rate 115 ML/MIN (>89) Result Diagram: 09/30/178 09/30/17407 Telemetry: NSR, no acute changes (1) Hx of encephalopathy Plan: continue PT/OT (2) Hx of cardiac arrest Plan: ok to dc Zoll life / does not need after discharge (3) Hyperlipemia Plan: on statin (4) Hypertension (5) S/P CABG x 3 Plan: ASA, statin , BB ok to transfer to stepdown OOB/ PT/OT [facility] at discharge (6) Multi-vessel coronary artery stenosis Ping Narayanan September 30, 2017 16:00
[2017-09-30] MEDS: ATORVASTATIN 40 MG TAB PO SCH (21:58)
[2017-09-30] MEDS: SENNOSIDES 8.6 MG TAB PO SCH (21:58)
[2017-09-30] MEDS: traZODone HCL 50 MG TAB PO SCH (22:01)
[2017-10-01] VITALS (27 sets, daily range): BP systolic 96–129; BP diastolic 52–67; PULSE 61–131; RESP 16–18; TEMP 98.2–98.4; O2SAT 90–97
[2017-10-01] MEDS: INSULIN ASPART SUPPLEMENTAL SCALE SQ SCH ×5 (02:00→21:00)
[2017-10-01 05:00] LABS: AUTOMATED NEUTROPHIL # 7.5 TH/MM3 (1.8-7.7); BASOPHIL % 0.4 % (0.0-2.0); EOSINOPHIL % 0.2 % (0.0-4.0); HEMATOCRIT 22.9 % (39.0-51.0); HEMOGLOBIN 7.6 GM/DL (13.0-17.0); LYMPH % 13.2 % (9.0-44.0); LYMPHOCYTE # 1.3 TH/MM3 (1.0-4.8); MEAN CELL VOLUME 78.1 FL (80.0-100.0); MEAN CORPUSCULAR HEMOGLOBIN 26.1 PG (27.0-34.0); MEAN CORPUSCULAR HGB CONC 33.4 % (32.0-36.0); MONO % 11.2 % (0.0-8.0); MONOCYTE # 1.1 TH/MM3 (0-0.9); PLATELET COUNT 183 TH/MM3 (150-450); RED BLOOD COUNT 2.93 MIL/MM3 (4.50-5.90); RED CELL DISTRIBUTION WIDTH 17.4 % (11.6-17.2)
[2017-10-01 05:16] LABS: BICARBONATE 27.7 MEQ/L (21.0-32.0); CALCIUM 7.8 MG/DL (8.5-10.1); CREATININE 0.82 MG/DL (0.60-1.30)
[2017-10-01] MEDS: AMIODARONE 200 MG TAB PO SCH ×2 (06:21→21:20)
[2017-10-01] MEDS: PANTOPRAZOLE SOD 40 MG DELAYED RELEASE TAB PO SCH (06:21)
[2017-10-01] MEDS: RESP: ALBUTEROL 2.5 MG/IPRATROPIUM 0.5 MG NEB (SCH) NEB ×3 (08:27→20:40)
[2017-10-01] MEDS: ASPIRIN 81 MG CHEW TAB PO SCH (08:49)
[2017-10-01] MEDS: POLYETHYLENE GLYCOL 17 GM PKG PO SCH (08:49)
[2017-10-01] MEDS: MULTIVITAMINS/MINERALS THERAPEUTIC TAB PO SCH (08:49)
[2017-10-01] MEDS: MAGNESIUM HYDROXIDE SUSP 30 ML CUP PO SCH (08:49)
[2017-10-01] MEDS: THIAMINE HCL 100 MG TAB PO SCH (08:49)
[2017-10-01] MEDS: METOPROLOL TARTRATE 25 MG TAB PO SCH ×2 (08:49→21:19)
[2017-10-01] MEDS: DOCUSATE SODIUM 100 MG CAP PO SCH ×2 (08:49→21:23)
[2017-10-01] MEDS: QUEtiapine FUMARATE 25 MG TAB PO SCH ×2 (08:50→21:22)
[2017-10-01] MEDS: SODIUM CHLORIDE 0.9% FLUSH 10 ML FLUSH IV FLUSH SCH ×2 (08:50→21:00)
--- NOTE | 2017-10-01 11:39 | PD.CAR.PN ---
CVT Progress Note CVT: POD #: 2 Subjective/Hospital Course: 62/ male , initially seen 08/12/17, witnessed by significant other cardiac arrest , in Emergency Department he was found to be in PEA arrest. After ACLS protocol return of spontaneous circulation was obtained. Initially, a poor neuro exam was obtained and then immediately transferred to [facility]. He was evaluated by critical care med. Per the notes from critical care, the pupils are 6 mm, deviated to the left. There was an extensor posturing in the upper extremities and flexure posturing in the lowers. Initial head CT was negative for acute intracranial hemorrhage. He was also found to have 1 rhythm of ventricular fibrillation, suggesting possible ischemic component. The decision was made for hypothermic therapy, which was started the same day. He was rewarmed on the with complete rewarming completed on the 09/09. Neurologically he slowly improved from encephalopathy, he then underwent cardiac cath on the by Dr. Boateng, which showed 10% left main, proximal LAD 99%, mid distal LAD 90%, diagonal 90%, the circumflex had 80%, the OM 70%, the RCA 10%, ejection fraction 60%. Echocardiogram was also done, which showed an EF of 55-60%, so the left atrial size was mild to moderately dilated. There was some trace aortic AI, mild tricuspid regurgitation. We were then consulted to evaluate for coronary artery bypass grafting.. He was stabilized and sent to rehab to fully recover. 09/29 pt was electively re-admitted for CABG surgery : CABG x 3 , HUTCHINSON to LAD - good, SVG to OM1 - good, SVG to left PDA, EVH (R) extubated after surgery EF 50-60% discussed with Dr Boateng and Dr ortiz / david to dc Zoll Life vest / will not need at discharge/ pt revascularized still has some cognitive issues will transfer to stepdown , close to nurses station on ASA, statin , BB 10/01/17 doing well, no complaints Objective: Vital Signs Date Time Temp Pulse Resp B/P (MAP) Pulse Ox O2 Delivery O2 Flow Rate FiO2 10/01/17 11:07 98.4 74 18 102/60 (74) 97 10/01/17 11:07 61 10/01/17 11:07 97 Room Air 10/01/17 10:02 75 10/01/17 09:36 84 10/01/17 08:15 97 Room Air 10/01/17 08:15 68 10/01/17 08:15 98.2 76 18 103/67 (79) 97 10/01/17 06:37 69 10/01/17 05:02 71 10/01/17 04:40 98.4 75 16 113/60 (77) 95 10/01/17 04:00 75 10/01/17 03:32 94 Room Air 2.00 10/01/17 03:00 69 10/01/17 02:00 68 10/01/17 02:00 65 10/01/17 01:00 76 10/01/17 00:23 98.2 77 16 129/63 (85) 95 10/01/17 00:00 77 09/30/17 23:32 94 Room Air 2.00 09/30/17 23:00 75 09/30/17 22:00 75 09/30/17 21:00 85 09/30/17 20:00 65 09/30/17 20:00 94 Room Air 2.00 09/30/17 20:00 98.5 85 16 121/77 (92) 94 09/30/17 19:55 98 21 09/30/17 19:00 85 09/30/17 18:00 80 09/30/17 17:00 82 09/30/17 16:00 80 09/30/17 15:16 Room Air 09/30/17 15:16 98.4 83 16 119/66 (83) 95 09/30/17 15:00 85 09/30/17 14:00 86 09/30/17 13:00 90 09/30/17 12:00 86 Labs: Laboratory Tests Test 10/01/17 04:31 White Blood Count 10.0 TH/MM3 (4.0-11.0) Red Blood Count 2.93 MIL/MM3 (4.50-5.90) Hemoglobin 7.6 GM/DL (13.0-17.0) Hematocrit 22.9 % (39.0-51.0) Mean Corpuscular Volume 78.1 FL (80.0-100.0) Mean Corpuscular Hemoglobin 26.1 PG (27.0-34.0) Mean Corpuscular Hemoglobin Concent 33.4 % (32.0-36.0) Red Cell Distribution Width 17.4 % (11.6-17.2) Platelet Count 183 TH/MM3 (150-450) Mean Platelet Volume 9.0 FL (7.0-11.0) Neutrophils (%) (Auto) 75.0 % (16.0-70.0) Lymphocytes (%) (Auto) 13.2 % (9.0-44.0) Monocytes (%) (Auto) 11.2 % (0.0-8.0) Eosinophils (%) (Auto) 0.2 % (0.0-4.0) Basophils (%) (Auto) 0.4 % (0.0-2.0) Neutrophils # (Auto) 7.5 TH/MM3 (1.8-7.7) Lymphocytes # (Auto) 1.3 TH/MM3 (1.0-4.8) Monocytes # (Auto) 1.1 TH/MM3 (0-0.9) Eosinophils # (Auto) 0.0 TH/MM3 (0-0.4) Basophils # (Auto) 0.0 TH/MM3 (0-0.2) CBC Comment DIFF FINAL Differential Comment Blood Urea Nitrogen 20 MG/DL (7-18) Creatinine 0.82 MG/DL (0.60-1.30) Random Glucose 109 MG/DL (74-106) Calcium Level 7.8 MG/DL (8.5-10.1) Magnesium Level 2.0 MG/DL (1.5-2.5) Sodium Level 140 MEQ/L (136-145) Potassium Level 4.4 MEQ/L (3.5-5.1) Chloride Level 105 MEQ/L (98-107) Carbon Dioxide Level 27.7 MEQ/L (21.0-32.0) Anion Gap 7 MEQ/L (5-15) Estimat Glomerular Filtration Rate 95 ML/MIN (>89) Result Diagram: 10/01/1743010/01/17430 Cardiovascular: RRR Telemetry: NSR Pulmonary: CTA GI/: NABS, NT Incision: dry and intact CT: ~70ml/12hrs Plan: Remove chest tubes Stim BM Encourage ambulation start iron for anemia Possible d/c tomorrow with home health Decrease amio dose (1) Hx of encephalopathy Plan: continue PT/OT (2) Hx of cardiac arrest Plan: ok to dc Zoll life / does not need after discharge (3) Hyperlipemia Plan: on statin (4) Hypertension (5) S/P CABG x 3 Plan: ASA, statin , BB ok to transfer to stepdown OOB/ PT/OT HHC at discharge (6) Multi-vessel coronary artery stenosis Noemi Ortiz MD October 01, 2017 11:39
[2017-10-01] MEDS: FERROUS SULFATE 325 MG (65 MG ELEMENTAL IRON) TAB PO SCH ×2 (11:48→21:20)
[2017-10-01] MEDS: FUROSEMIDE 40 MG/4 ML VIAL IV PUSH SCH (17:01)
[2017-10-01] MEDS: traZODone HCL 50 MG TAB PO SCH (21:20)
[2017-10-01] MEDS: SENNOSIDES 8.6 MG TAB PO SCH (21:23)
[2017-10-01] MEDS: ATORVASTATIN 40 MG TAB PO SCH (21:23)
[2017-10-01] MEDS ORDERED: AMIODARONE 150 MG/D5W 97 ML BOLUS 10 MINUTES IV ONE ×2 (23:45)
[2017-10-01] MEDS ORDERED: SODIUM CHLOR 0.9% 250 ML INJ 250 ML IV ONE (23:45)
[2017-10-02] VITALS (13 sets, daily range): BP systolic 98–119; BP diastolic 59–61; PULSE 65–124; RESP 16–18; TEMP 98–98.6; O2SAT 92–98
[2017-10-02] MEDS: MAGNESIUM SULFATE 1 GM PREMIX 100 ML IV SCH ×2 (00:57)
[2017-10-02] MEDS: PANTOPRAZOLE SOD 40 MG DELAYED RELEASE TAB PO SCH (06:33)
[2017-10-02] MEDS: INSULIN ASPART SUPPLEMENTAL SCALE SQ SCH (08:00)
[2017-10-02] MEDS: MULTIVITAMINS/MINERALS THERAPEUTIC TAB PO SCH (08:23)
[2017-10-02] MEDS: THIAMINE HCL 100 MG TAB PO SCH (08:23)
[2017-10-02] MEDS: MAGNESIUM HYDROXIDE SUSP 30 ML CUP PO SCH (08:23)
[2017-10-02] MEDS: QUEtiapine FUMARATE 25 MG TAB PO SCH (08:23)
[2017-10-02] MEDS: DOCUSATE SODIUM 100 MG CAP PO SCH (08:23)
[2017-10-02] MEDS: POLYETHYLENE GLYCOL 17 GM PKG PO SCH (08:23)
[2017-10-02] MEDS: FERROUS SULFATE 325 MG (65 MG ELEMENTAL IRON) TAB PO SCH (08:23)
[2017-10-02] MEDS: ASPIRIN 81 MG CHEW TAB PO SCH (08:24)
[2017-10-02] MEDS: FUROSEMIDE 40 MG/4 ML VIAL IV PUSH SCH (08:24)
[2017-10-02] MEDS: METOPROLOL TARTRATE 25 MG TAB PO SCH (08:24)
[2017-10-02] MEDS: SODIUM CHLORIDE 0.9% FLUSH 10 ML FLUSH IV FLUSH SCH (08:24)
[2017-10-02] MEDS: AMIODARONE 200 MG TAB PO SCH (08:24)
[2017-10-02] MEDS ORDERED: ASPI81 PO (10:46)
[2017-10-02] MEDS ORDERED: METO25TA3 PO (10:46)
[2017-10-02] MEDS ORDERED: DOCU1CAP39 PO (10:46)
[2017-10-02] MEDS ORDERED: FERR325T20 PO (10:46)
[2017-10-02] MEDS ORDERED: AMIO200T PO (10:46)
[2017-10-02] MEDS ORDERED: OXYC1TAB63 PO (10:46)
[2017-10-02] MEDS ORDERED: PANT40TA3 PO (10:46)
--- NOTE | 2017-10-02 10:50 | HHI.DS ---
Discharge Summary Admission Date September 29, 2017 at 05:17 Discharge Date: October 02, 2017 Admitting Diagnosis (1) Anemia Diagnosis: Secondary ICD Codes: D64.9 - Anemia, unspecified Status: Acute (2) Anoxic encephalopathy Diagnosis: Secondary ICD Codes: G93.1 - Anoxic brain damage, not elsewhere classified Status: Acute (3) Hypercholesterolemia Diagnosis: Secondary ICD Codes: E78.00 - Pure hypercholesterolemia, unspecified Status: Chronic (4) HTN (hypertension) Diagnosis: Secondary ICD Codes: I10 - Essential (primary) hypertension Status: Chronic (5) NSTEMI (non-ST elevated myocardial infarction) Diagnosis: Principal ICD Codes: I21.4 - Non-ST elevation (NSTEMI) myocardial infarction Status: Acute (6) Multi-vessel coronary artery stenosis Diagnosis: Principal ICD Codes: I25.10 - Atherosclerotic heart disease of [place] coronary artery without angina pectoris (7) Hyperlipemia Diagnosis: Secondary ICD Codes: E78.5 - Hyperlipidemia, unspecified Procedures CABG Brief History Subjective/Hospital Course: 62/ male , initially seen 08/12/17, witnessed by significant other cardiac arrest , in Emergency Department he was found to be in PEA arrest. After ACLS protocol return of spontaneous circulation was obtained. Initially, a poor neuro exam was obtained and then immediately transferred to [facility]. He was evaluated by critical care med. Per the notes from critical care, the pupils are 6 mm, deviated to the left. There was an extensor posturing in the upper extremities and flexure posturing in the lowers. Initial head CT was negative for acute intracranial hemorrhage. He was also found to have 1 rhythm of ventricular fibrillation, suggesting possible ischemic component. The decision was made for hypothermic therapy, which was started the same day. He was rewarmed on the with complete rewarming completed on the 09/09. Neurologically he slowly improved from encephalopathy, he then underwent cardiac cath on the by Dr. Boateng, which showed 10% left main, proximal LAD 99%, mid distal LAD 90%, diagonal 90%, the circumflex had 80%, the OM 70%, the RCA 10%, ejection fraction 60%. Echocardiogram was also done, which showed an EF of 55-60%, so the left atrial size was mild to moderately dilated. There was some trace aortic AI, mild tricuspid regurgitation. We were then consulted to evaluate for coronary artery bypass grafting.. He was stabilized and sent to rehab to fully recover. CBC/BMP: 10/01/17 0431 10/01/17 0431 Significant Findings Laboratory Tests Test 09/30/17 04:08 10/01/17 04:31 White Blood Count 11.7 TH/MM3 (4.0-11.0) Red Blood Count 3.56 MIL/MM3 (4.50-5.90) 2.93 MIL/MM3 (4.50-5.90) Hemoglobin 9.0 GM/DL (13.0-17.0) 7.6 GM/DL (13.0-17.0) Hematocrit 28.3 % (39.0-51.0) 22.9 % (39.0-51.0) Mean Corpuscular Volume 79.6 FL (80.0-100.0) 78.1 FL (80.0-100.0) Mean Corpuscular Hemoglobin 25.3 PG (27.0-34.0) 26.1 PG (27.0-34.0) Mean Corpuscular Hemoglobin Concent 31.8 % (32.0-36.0) Random Glucose 123 MG/DL (74-106) 109 MG/DL (74-106) Calcium Level 8.3 MG/DL (8.5-10.1) 7.8 MG/DL (8.5-10.1) Red Cell Distribution Width 17.4 % (11.6-17.2) Neutrophils (%) (Auto) 75.0 % (16.0-70.0) Monocytes (%) (Auto) 11.2 % (0.0-8.0) Monocytes # (Auto) 1.1 TH/MM3 (0-0.9) Blood Urea Nitrogen 20 MG/DL (7-18) Imaging Last Impressions Chest X-Ray 09/30/17 0500 Signed Impressions: Service Date/Time: Saturday, September 30, 2017 04:58 - CONCLUSION: Clear lungs. Jeremy Blanton Jr., MD PE at Discharge Chest - CTA COR - RRR ABD - soft, NT wound - dry and intact Hospital Course 09/29 pt was electively re-admitted for CABG surgery : CABG x 3 , HUTCHINSON to LAD - good, SVG to OM1 - good, SVG to left PDA, EVH (R) extubated after surgery EF 50-60% discussed with Dr Boateng and Dr santamaria / ok to dc [employer]oll Life vest / will not need at discharge/ pt revascularized still has some cognitive issues will transfer to stepdown , close to nurses station on ASA, statin , BB 10/01/17 doing well, no complaints 10/02/17 Episode of SVT yesterday evening which converted with amiodarone bolus and magnesium sulfate infusion. No issues this morning. Pt Condition on Discharge: Good Discharge Disposition: Disch w/ Home Health Serv Discharge Instructions DIET: Follow Instructions for: Heart Healthy Diet Activities you can perform: Weight Bearing as Eliza, Shower Only-No Bath Activities to avoid: Lifting/Bending, Strenuous Activity, Driving Follow up Referrals: Cardiology, Interventional - 4 Weeks @ [facility] with Aleks Boateng DO PCP Follow-up - 2 Weeks with Gallito Lilly MD Surgical - 2 Weeks with Noemi Santamaria MD New Orders: BASIC METABOLIC PROF - 2 Weeks CBC NO DIFF - 2 Weeks X-RAY CHEST PA & LAT - 2 Weeks New Medications: Amiodarone (Amiodarone) 200 Mg Tab 200 MG PO BID for Regulate Heart Beat, #28 TAB Aspirin (Tgt Aspirin) 81 Mg Chw 81 MG PO DAILY for Blood Clot Prevention, #100 EA 3 Refills Docusate Sodium (Dok) 100 Mg Cap 100 MG PO BID for Constipation, #28 CAP Ferrous Sulfate (Ferosul) 325 Mg (65 Mg Iron) Tablet 325 MG PO BID for Nutritional Supplement, #60 TAB Metoprolol Tartrate (Metoprolol Tartrate) 25 Mg Tab 12.5 MG PO Q12HR for Blood Pressure Management, #60 TAB 3 Refills Oxycodone HCl/Acetaminophen (Oxycodone-Acetaminophen 5-325) 5 Mg-325 Mg Tablet 1 TAB PO Q3H PRN for PAIN SCALE 1 TO 5, #28 TAB Pantoprazole (Pantoprazole) 40 Mg Tab 40 MG PO DAILY@06 for Prevent Stress Ulcers, #28 TAB Continued Medications: Atorvastatin (Atorvastatin) 40 Mg Tab 40 MG PO HS for Cholesterol Management, #30 TAB Clopidogrel (Plavix) 75 Mg Tab 75 MG PO DAILY for Prevent Blood Clot, #30 TAB Commode 3-in-1 (Commode 3-in-1) 1 Mis Mis EA .XX DIRECTED, #1 0 Refills Lisinopril (Lisinopril) 5 Mg Tab 5 MG PO DAILY, #30 TAB Melatonin (Melatonin) 5 Mg Tab 5 MG PO HS PRN for INSOMNIA, #30 TAB Multiple Vitamin (Multiple Vitamin) 1 Tab 1 TAB PO DAILY for Nutritional Supplement for 30 Days, TAB 0 Refills Quetiapine (Seroquel) 25 Mg Tab 25 MG PO BID, #60 TAB Thiamine (Vitamin B-1) 100 Mg Tab 100 MG PO DAILY for Nutritional Supplement for 30 Days, TAB 0 Refills Trazodone (Trazodone) 50 Mg Tab 100 MG PO HS, #60 TAB Wheelchair (Wheelchair) 1 Mis Mis EA .XX DIRECTED, #1 0 Refills Discontinued Medications: Aspirin DR (Aspirin EC) 325 Mg Tabdr 325 MG PO DAILY for Prevent Blood Clot, #30 TAB Metoprolol Tartrate (Metoprolol Tartrate) 25 Mg Tab 12.5 MG PO Q6HR for Blood Pressure Management, #60 TAB [Nitroglycer 0.3 Mg Patch.24 Hr] () 1 PATCH PATCH 1 PATCH T-DERMAL DAILY, #30 Noemi Santamaria MD October 02, 2017 10:50
== END 2017-10-02 11:40 | disposition home health service (06) | DRG 236 ==
LOC: HSDI 05:17 → HCVI 12:47 → HCPC 09-30 10:20
PROVIDERS: ADMIT Thoracic Surgery (Cardiothoracic Vascular Surgery); ATTEND Thoracic Surgery (Cardiothoracic Vascular Surgery)
PROC: 06BP4ZZ Excision of Right Saphenous Vein, Percutaneous Endoscopic Approach (ICD-10-PCS; 2017-09-29)
PROC: 5A1221Z Performance of Cardiac Output, Continuous (ICD-10-PCS; 2017-09-29)
PROC: 30233R1 Transfusion of Nonautologous Platelets into Peripheral Vein, Percutaneous Approach (ICD-10-PCS; 2017-09-29)
PROC: 02100Z9 Bypass Coronary Artery, One Artery from Left Internal Mammary, Open Approach (ICD-10-PCS; principal; 2017-09-29 07:17)
PROC: 021109W Bypass Coronary Artery, Two Arteries from Aorta with Autologous Venous Tissue, Open Approach (ICD-10-PCS; 2017-09-29 07:17)
DX: I25.10 Atherosclerotic heart disease of native coronary artery without angina pectoris (principal); G93.1 Anoxic brain damage, not elsewhere classified; I47.1 Supraventricular tachycardia; Z86.74 Personal history of sudden cardiac arrest; I10 Essential (primary) hypertension; E78.5 Hyperlipidemia, unspecified; D64.9 Anemia, unspecified; E78.00 Pure hypercholesterolemia, unspecified; I25.2 Old myocardial infarction; Z79.82 Long term (current) use of aspirin
CPT/HCPCS: 36415; 36430; 36600; 71045; 76937; 80048; 81001; 82805; 82948; 83735; 85025; 85027; 85576; 85610; 85730; 86850; 86900; 86901; 86920; 87640; 87641; 93005; 94002; 94060; 94150; 94640; 94664; 94667; 94668; 94726; 94729; J0131; J0282; J0690; J1644; J1815; J1817; J1940; J2150; J2250; J2370; J2720; J2930; J3010; J3370; J3475; J3480; J7040; J7050; J7120; P9035